=== PATIENT | male | born 1940 | race Caucasian/White ===

== ENCOUNTER 2016-11-12 14:35 | Inpatient (IN) | payer OTHER ==
[~2016-11-12] VITALS: Ht 175.3 cm; Wt 73.1 kg
[~2016-11-12 14:35] MED LIST: ASPI81TA28 PO; ATOR-24 PO; FLV1 PO; MRLP17X PO; MULT-589 PO; OXYB5TAB21 PO; SALI0.6510; THM100 PO
[2016-11-12] MEDS ORDERED: KPP/1000 PO (14:53)
[2016-11-12] MEDS ORDERED: DEXA1TAB16 PO (14:53)
[2016-11-12] MEDS ORDERED: LSN5 PO (14:53)
[2016-11-12] MEDS ORDERED: CITA20TA9 PO (14:53)
[2016-11-12] MEDS ORDERED: SODIUM CHLORIDE 0.9% 1000ML 250 ML IV STA (15:13)
[2016-11-12] MEDS ORDERED: SODIUM CHLORIDE 0.9% 1000ML 1,000 ML IV STA (15:13)
[2016-11-12 15:54] LABS: HEMATOCRIT 42.1 % (42-52); MEAN CORPUSCULAR HEMOGLOBIN 34.7 pg (25-34); MEAN CORPUSCULAR HGB CONC 34.7 g/dl (32-36); MEAN PLATELET VOLUME 9.2 fL (7.4-10.4); PLATELET COUNT 144 K/uL (130-400); RED BLOOD COUNT 4.21 M/uL (4.7-6.1); WHITE BLOOD COUNT 9.58 K/uL (4.8-10.8)
[2016-11-12 16:07] LABS: PARTIAL THROMBOPLASTIN RATIO 0.9; PROTHROMBIN TIME (PATIENT) 10.7 SECONDS (9.0-12.0)
[2016-11-12 16:13] LABS: BUN/CREATININE RATIO 27.1 (10-20); CREATININE 0.99 mg/dl (0.60-1.40)
--- NOTE | 2016-11-12 16:13 | DIAGNOSTIC IMAGING REPORT ---
CT SCAN OF THE BRAIN WITHOUT IV CONTRAST CLINICAL HISTORY: Increasing weakness. Change in mental status. History of brain tumor. COMPARISON STUDY: CT of the brain dated 08/14/2015. MRI of the brain dated 08/13/2015. TECHNIQUE: Unenhanced axial CT scan of the brain is performed from the vertex to the skull base. CT DOSE: 537.48 mGy.cm FINDINGS: Brain parenchyma: Left frontal encephalomalacia is consistent with previous tumor resection. Postoperative change is again noted deep to the craniotomy site. There is diffuse edema throughout the white matter, likely related to radiation therapy. There is age-related involutional volume loss and microangiopathic change. There is no hemorrhage, mass effect, or evidence of acute territorial ischemia by CT criteria. Lock-white matter is preserved. No extra-axial fluid collection is seen. Ventricles, sulci, cisterns: Prominent secondary to involutional change. Intracranial vasculature: There is atherosclerotic calcification of the cavernous carotid and vertebral arteries. Calvarium: There are changes from previous left sided craniotomy. No destructive calvarial lesion is seen. Sinuses and mastoids: The visualized paranasal sinuses are clear. The mastoid air cells are well pneumatized. Orbits: The bony orbits are grossly intact. IMPRESSION: 1. There is no hemorrhage, mass effect, or evidence of acute territorial ischemia by CT criteria. 2. Encephalomalacia and postoperative change is again seen in the left frontal lobe consistent with previous tumor resection. There has been no significant change from the 08/14/2015 examination. 3. Diffuse low attenuation throughout the white matter suggests a history of previous brain radiation. Clinical correlation will be required. Electronically signed by: Eloy Sanchez M.D. 11/12/2016 4:12 PM Dictated Date/Time: 11/12/2016 4:08 PM
[2016-11-12 16:22] LABS: COMPLETE YES; IG% 0.4 %; LYMPH ABS # 0.48 K/uL (1.2-3.4); MONO % 2.6 %
--- NOTE | 2016-11-12 16:28 | DIAGNOSTIC IMAGING REPORT ---
CHEST ONE VIEW PORTABLE HISTORY: Atypical CHEST PAIN COMPARISON: Chest 08/13/2015. FINDINGS: Patient is rotated on this study. There are low lung volumes. The heart is normal in size. Tortuous thoracic aorta persists. This is likely accentuated by the rotated study. No pleural effusions. No pneumothorax. There is mild perihilar interstitial thickening. No focal lung consolidations to suggest pneumonia. IMPRESSION: 1. Rotated study. 2. Mild perihilar interstitial thickening. This could be due to developing congestive change. Electronically signed by: Micah De Guzman M.D. 11/12/2016 4:27 PM Dictated Date/Time: 11/12/2016 4:25 PM
[2016-11-12] MEDS ORDERED: DEXAMETHASONE SOD INJ 10 MG/ML VIAL IV STA (17:49)
--- NOTE | 2016-11-12 18:13 | EMERGENCY ROOM VISIT NOTE ---
History Report prepared by Cherelle: Angelina Walsh Under the Supervision of: Dr. Juan Antonio Martin M.D. First contact with patient: 14:50 Chief Complaint: ILLNESS Stated Complaint: CONFUSION History of Present Illness The patient is a 76 year old male who presents to the Emergency Room with complaints of worsening confusion that started one week ago. The patient came to the ED via ambulance. The patient's states that the patient has a brain tumor, but it has been stable for the last 6 months based on MRIs. His most recent imaging was done less than one month ago. Per the patient's , the patient has been getting gradually worse over the past 6 months, but it he has been significantly more confused over the past week. The patient's states that he has been struggling to communicate more than usual recently. The patient has also been unable to ambulate secondary to weakness in his legs. The patient's thinks he is dehydrated, but he does not want anything to drink. The patient denies being in any pain, including headaches, chest pain, and abdominal pain. However, his states that he is experiencing shortness of breath and a productive cough. The patient had an appointment with his PCP today , but the patient's had a difficult time getting him into the car so she called the ambulance and brought him into the ED instead. The patient is on seizure medication and has not had any seizures recently. The patient has fallen 5 times in the last week. The patient's states that he is normally weak on his right side, but lately he has been significantly weaker. The patient refused to finish chemotherapy in the fall of 2015 because he did not like the side effects. The patient has been taking his medications regularly. The patient is on a daily low dose of steroids. The patient's adds that he was diagnosed with COPD one month ago and given an inhaler, but he doesn't use it because he experienced palpitations. Source of History: patient, spouse/significant other () Onset: one week ago Position: head Quality: other (confusion) Timing: worsening Associated Symptoms: + SOB, + cough (productive), No abdominal pain, No chest pain, No headache Note: struggling to communicate, worsening lower extremity weakness Review of Systems See HPI for pertinent positives & negatives. A total of 10 systems reviewed and were otherwise negative. Past Medical & Surgical Medical Problems: (1) Ambulatory dysfunction (2) Brain tumor (3) CAD (coronary artery disease) (4) COPD (chronic obstructive pulmonary disease) (5) Depression (6) HLD (hyperlipidemia) (7) HTN (hypertension) (8) Hyperlipidemia (9) Oligodendroglioma of brain (10) Seizure Surgical Problems: (1) H/O brain surgery (2) H/O hernia repair (3) History of tonsillectomy Old medical records were reviewed. Nurse's notes were reviewed and I agree with. Family History Heart disease Social History Smoking Status: Never Smoker Alcohol Use: occasionally Marital Status: Housing Status: lives with significant other Occupation Status: retired Current/Historical Medications Scheduled Aspirin (Aspirin Ec), 81 MG PO DAILY Atorvastatin (Lipitor), 40 MG PO DAILY Citalopram Hydrobromide (Celexa), 20 MG PO DAILY Dexamethasone (Dexamethasone), 2 MG PO UD Folic Acid (Folic Acid), 1 MG PO QAM Levetiracetam (Keppra), 1,000 MG PO BID Lisinopril (Lisinopril), 5 MG PO DAILY Multivitamins (Daily Wes), 1 TAB PO QAM Oxybutynin Chloride (Ditropan Xl), 5 MG PO DAILY Thiamine HCl (Vitamin B-1), 100 MG PO QAM Scheduled PRN Polyethylene (Miralax), 17 GM PO DAILY PRN for constipation Saline ([place] Nasal [place]), 1 SPRAYS NA PRN PRN for NASAL DRYNESS Allergies Coded Allergies: No Known Allergies (Unverified , 05/25/14) Physical Exam Vital Signs Date Time Temp Pulse Resp B/P Pulse Ox O2 Delivery O2 Flow Rate FiO2 11/12/16 19:51 56 18 162/93 95 Room Air 11/12/16 17:26 63 18 177/93 95 Room Air 11/12/16 14:45 36.9 103 18 145/90 90 Room Air Physical Exam General: Well developed well nourished non-ill older male in no acute distress, breathing comfortably on room air. Normal speech HEENT: Normal cephalic atraumatic. Pupils are equal round and reactive to light. Sclerae anicteric. Extraocular movements are intact. Oropharynx is pink with moist mucous membranes. No swelling of the mouth lips or tongue. Neck: Supple with a midline trachea. No meningeal signs or stiffness, no JVD or bruits. No Stridor. Chest: Clear to auscultation bilaterally. No wheezes or rhonchi. No increased work of breathing. Heart: regular rate and rhythm. Abdomen: Soft nontender, nondistended without rebound guarding or rigidity. Extremities: No cyanosis clubbing or edema. No calf tenderness or assymetry Spine/Back. Non tender to palpation. No CVA tenderness Skin: Good turgor without rashes. Neurologic exam: Cranial nerves two through 12 are intact. Motor and sensation are intact and symmetrical throughout. Mild aphasia. Answers most questions appropriately but others vaguely. Alert to person and place but not date. Medical Decision & Procedures ER Provider Diagnostic Interpretation: X ray results as stated below per my interpretation and radiologist interpretation. Other radiology results as stated below per my review and radiologist interpretation: CHEST ONE VIEW PORTABLE IMPRESSION: 1. Rotated study. 2. Mild perihilar interstitial thickening. This could be due to developing congestive change. Electronically signed by: Micah De Guzman M.D. 11/12/2016 4:27 PM Dictated Date/Time: 11/12/2016 4:[address] SCAN OF THE BRAIN WITHOUT IV CONTRAST IMPRESSION: 1. There is no hemorrhage, mass effect, or evidence of acute territorial ischemia by CT criteria. 2. Encephalomalacia and postoperative change is again seen in the left frontal lobe consistent with previous tumor resection. There has been no significant change from the 08/14/2015 examination. 3. Diffuse low attenuation throughout the white matter suggests a history of previous brain radiation. Clinical correlation will be required. Electronically signed by: Eloy Sanchez M.D. 11/12/2016 4:12 PM Dictated Date/Time: 11/12/2016 4:08 PM Laboratory Results 11/12/16 15:30 Red Blood Count 4.21, Mean Corpuscular Volume 100.0, Mean Corpuscular Hemoglobin 34.7, Mean Corpuscular Hemoglobin Concent 34.7, Mean Platelet Volume 9.2, Neutrophils (%) (Auto) 92.0, Lymphocytes (%) (Auto) 5.0, Monocytes (%) ( Auto) 2.6, Eosinophils (%) (Auto) 0.0, Basophils (%) (Auto) 0.0, Neutrophils # ( Auto) 8.81, Lymphocytes # (Auto) 0.48, Monocytes # (Auto) 0.25, Eosinophils # ( Auto) 0.00, Basophils # (Auto) 0.00 11/12/16 15:30 Test 11/12/16 15:30 11/12/16 18:27 11/12/16 18:28 11/12/16 18:56 White Blood Count 9.58 K/uL (4.8-10.8) Red Blood Count 4.21 M/uL (4.7-6.1) Hemoglobin 14.6 g/dL (14.0-18.0) Hematocrit 42.1 % (42-52) Mean Corpuscular Volume 100.0 fL (80-100) Mean Corpuscular Hemoglobin 34.7 pg (25-34) Mean Corpuscular Hemoglobin Concent 34.7 g/dl (32-36) Platelet Count 144 K/uL (130-400) Mean Platelet Volume 9.2 fL (7.4-10.4) Neutrophils (%) (Auto) 92.0 % Lymphocytes (%) (Auto) 5.0 % Monocytes (%) (Auto) 2.6 % Eosinophils (%) (Auto) 0.0 % Basophils (%) (Auto) 0.0 % Neutrophils # (Auto) 8.81 K/uL (1.4-6.5) Lymphocytes # (Auto) 0.48 K/uL (1.2-3.4) Monocytes # (Auto) 0.25 K/uL (0.11-0.59) Eosinophils # (Auto) 0.00 K/uL (0-0.5) Basophils # (Auto) 0.00 K/uL (0-0.2) RDW Standard Deviation 49.8 fL (36.4-46.3) RDW Coefficient of Variation 13.7 % (11.5-14.5) Immature Granulocyte % (Auto) 0.4 % Immature Granulocyte # (Auto) 0.04 K/uL (0.00-0.02) Red Blood Cell Morphology Unremarkable Prothrombin Time 10.7 SECONDS (9.0-12.0) Prothromb Time International Ratio 1.0 (0.9-1.1) Activated Partial Thromboplast Time 24.6 SECONDS (21.0-31.0) Partial Thromboplastin Ratio 0.9 Anion Gap 7.0 mmol/L (3-11) Est Creatinine Clear Calc Drug Dose 64.5 ml/min Estimated GFR () 86.0 Estimated GFR (Non- 74.2 BUN/Creatinine Ratio 27.1 (10-20) Calcium Level 9.0 mg/dl (8.5-10.1) Magnesium Level 2.2 mg/dl (1.8-2.4) Total Bilirubin 0.5 mg/dl (0.2-1) Direct Bilirubin 0.2 mg/dl (0-0.2) Aspartate Amino Transf (AST/SGOT) 10 U/L (15-37) Alanine Aminotransferase (ALT/SGPT) 34 U/L (12-78) Alkaline Phosphatase 93 U/L (45-117) Total Creatine Kinase 45 U/L (39-308) Creatine Kinase MB 1.5 ng/ml (0.5-3.6) Troponin I < 0.015 ng/ml (0-0.045) Total Protein 6.3 gm/dl (6.4-8.2) Albumin 3.0 gm/dl (3.4-5.0) Lipase 202 U/L (73-393) Creatine Kinase MB Ratio (0-3.0) Laboratory studies as stated above per my review. Medications Administered Medications (Trade) Dose Ordered Sig/Adolfo Route Start Time Stop Time Status Last Admin Dose Admin Sodium Chloride 250 ml @ 999 mls/hr Q16M STAT IV 11/12/16 15:13 11/12/16 15:28 DC 11/12/16 16:04 999 MLS/HR Sodium Chloride (Nss 1000ml) 1,000 ml @ 100 mls/hr Q10H STAT IV 11/12/16 15:13 11/13/16 01:12 11/12/16 16:04 100 MLS/HR Dexamethasone Sodium Phosphate (Decadron Inj) 10 mg NOW STAT IV 11/12/16 17:49 11/12/16 17:50 DC 11/12/16 18:02 10 MG ECG Indication: altered mental status Rate (beats per minute): 68 Rhythm: normal sinus Findings: nonspecific-ST abn, other (poor baseline) Comparison ECG Date: 08/13/2015 Change: no significant change ED Course 1454: Past medical records reviewed. The patient was evaluated in room A10, and a complete history and physical examination were performed. 1513: Ordered Sodium Chloride 1000 ml @ 100 mls/hr IV, Sodium Chloride 250 ml @ 999 mls/hr IV 1744: Upon reevaluation, the patient appears to be more comfortable. I discussed the results and treatment plan with the patient and his . They verbalized agreement of the treatment plan. The patient will be evaluated for further management. 1748: Ordered Decadron Inj 10 mg IV 175: I discussed the patient's case with Anne Ackerman. The patient will be evaluated for further management. Medical Decision Differentials include, but are not limited to; brain tumor, seizure, dehydration , infection, arrhythmia, electrolyte or metabolic abnormality. This patient comes in as described above. He has ahistory of a brain tumor which was treated with surgery and radiation and chemotherapy comes in after having increasing weakness and confusion. He's had a subacute decline over the last week or so. He has had no fever. He has had no fall or trauma. His who takes care of him says that she can't care for him at this point. He's had no urinary symptoms. He denies any physical complaints. IV access established and he was hydrated with an IV normal saline bolus and hourly rate of IV normal salin.e EKG was obtained as well as chest x-ray, head CT, and urinalysis. CAT scan of his head shows no acute process. He does have some possible edema which may be related to radiation. I did give him Decadron 10 mg IV to rule out that this was causing some of his symptoms. He has nothing to suggest infection. His sodium is high as was his BUN he may be dehydrated. I do think he needs to be admitted for further treatment and evaluation. I did consulted as hospitalist. They problems on the ER will admit him for these measures. Consults Time Called: 1748 Consulting Physician: Anne Ackerman Returned Call: [phone] I discussed the patient's case with Anne Ackerman. The patient will be evaluated for further management. Impression Primary Impression: Weakness Additional Impressions: Altered mental status Brain tumor Hypernatremia Dehydration Scribe Attestation The scribe's documentation has been prepared under my direction and personally reviewed by me in its entirety. I confirm that the note above accurately reflects all work, treatment, procedures, and medical decision making performed by me. Departure Information Dispostion Being Evaluated By Hospitalist Referrals Sherman Celaya M.D. (PCP) Patient Instructions My [facility] Problem Qualifiers Additional Impressions: Altered mental status Altered mental status type: unspecified Qualified Codes: R41.82 - Altered mental status, unspecified
[2016-11-12 18:50] LABS: CKMB/CK RATIO 3.3 (0-3.0); MAGNESIUM 2.2 mg/dl (1.8-2.4)
[2016-11-12] MEDS ORDERED: ONDANSETRON INJ 2 MG/ML 2 ML VIAL IV PRN (19:00)
[2016-11-12] MEDS ORDERED: ACETAMINOPHEN 325 MG TAB PO PRN (19:00)
[2016-11-12] MEDS ORDERED: ENOXAPARIN 40 MG/0.4 ML SYR SC SCH (19:00)
[2016-11-12] MEDS ORDERED: SODIUM CHLORIDE 0.65% NA SOLN 45 ML (OCEAN) PRN (19:15)
[2016-11-12] MEDS ORDERED: POLYETHYLENE (MIRALAX) 17 GM PACK PO PRN (19:15)
--- NOTE | 2016-11-12 19:40 | DIAGNOSTIC IMAGING REPORT ---
ULTRASOUND BILATERAL LOWER EXTREMITY VENOUS CLINICAL HISTORY: Calf pain. COMPARISON STUDY: No priors. TECHNIQUE: Real-time, grayscale, and color Doppler sonography of the deep veins of the right and left lower extremity was performed from the inguinal crease to the calf. Compression and augmentation were utilized. FINDINGS: Right lower extremity: There is no sonographic evidence of deep venous thrombosis identified in the right lower extremity. The common femoral, superficial femoral, and popliteal veins are patent and normally compressible. The greater saphenous vein and the profunda femoris vein at the junction with the common femoral vein are clear. The visualized calf veins are patent. Left lower extremity: There is deep venous thrombosis identified within 1 of the left peroneal veins. The remaining calf vessels are patent. There is no sonographic evidence of above knee deep venous thrombosis identified in the left lower extremity. The common femoral, superficial femoral, and popliteal veins are patent and normally compressible. The greater saphenous vein and the profunda femoris vein at the junction with the common femoral vein are clear. IMPRESSION: 1. Deep venous thrombosis is identified in the left calf within one of the peroneal veins. 2. There is no above knee deep venous thrombosis identified in the left lower extremity. 3. There is no sonographic evidence of deep venous thrombosis identified in the right lower extremity. Electronically signed by: Eloy Sanchez M.D. 11/12/2016 7:39 PM Dictated Date/Time: 11/12/2016 7:37 PM
--- NOTE | 2016-11-12 19:52 | History and Physical ---
History & Physical Date & Time of Service: Nov 12, 2016 at 19:21 Chief Complaint: Confusion Primary Care Physician: Dian Gay M.D. History of Present Illness Source: patient, family, clinic records, hospital records Patient seen and examined. 76 year old male with PMHx of Malignant Glioma s/p resection, chemo, radiation, CAD, HTN, HLD, seizures, COPD and other problems listed below present to the ED with increased confusion x 1 week. History is taken primarily from patient's who states that patient has been confused for several months. Over the last week he seems to have become more confused and "can't find the words he needs to say." He has also become increasingly weak. Patient usually uses a walker but over the past week he has had increased difficulty ambulating and can not not ambulate. He has a chronic right hemiplegia. He has had at least 5 falls in the last week. His has been unable to help him up and he has had to sleep on the floor until others could help him. He has had increased urinary incontinence and very poor po intake. Patient chose to stop chemotherapy in the fall. He has refused MRIs until very recently. He was seen by his PCP last month who started him on Celexa. He has not had any other medication changes. Patient and his denies fevers, chills , cough, chest pain, SOB, nausea, vomiting, diarrhea, dysuria, LOC and head trauma. Patient had an MRI of brain at the end of 10/16 which was unchanged from previous. Patient occasionally becomes tearful during exam especially when he doesn't know the answer to things. In the ED sodium is 149, CT head shows possible cerebral edema secondary to radiation. He received IVFs and Decadron he is resting comfortably and will be admitted for further workup and treatment. Past Medical/Surgical History Medical Problems: (1) Brain tumor Status: Chronic (2) CAD (coronary artery disease) Status: Chronic (3) COPD (chronic obstructive pulmonary disease) Status: Chronic (4) Depression Status: Chronic (5) HLD (hyperlipidemia) Status: Chronic (6) HTN (hypertension) Status: Chronic (7) Hyperlipidemia Status: Chronic (8) Oligodendroglioma of brain Status: Chronic (9) Seizure Status: Chronic Surgical Problems: (1) H/O brain surgery Status: Resolved (2) H/O hernia repair Status: Resolved (3) History of tonsillectomy Status: Resolved Family History Heart disease Social History Smoking Status: Never Smoker Alcohol Use: none Marital Status: Housing status: lives with family Occupational Status: retired Multi-Drug Resistant Organisms History of MDRO: Yes Type of MDRO: MRSA Allergies Coded Allergies: No Known Allergies (Unverified , 05/25/14) Home Medications Scheduled Aspirin (Aspirin Ec), 81 MG PO DAILY Atorvastatin (Lipitor), 40 MG PO DAILY Citalopram Hydrobromide (Celexa), 20 MG PO DAILY Dexamethasone (Dexamethasone), 2 MG PO UD Folic Acid (Folic Acid), 1 MG PO QAM Levetiracetam (Keppra), 1,000 MG PO BID Lisinopril (Lisinopril), 5 MG PO DAILY Multivitamins (Daily Wes), 1 TAB PO QAM Oxybutynin Chloride (Ditropan Xl), 5 MG PO DAILY Thiamine HCl (Vitamin B-1), 100 MG PO QAM Scheduled PRN Polyethylene (Miralax), 17 GM PO DAILY PRN for constipation Saline ([place] Nasal [place]), 1 SPRAYS NA PRN PRN for NASAL DRYNESS Review of Systems See above for pertinent positives & negatives. A total of 10 systems reviewed and were otherwise negative. Physical Exam Vital Signs Date Time Temp Pulse Resp B/P Pulse Ox O2 Delivery O2 Flow Rate FiO2 11/12/16 17:26 63 18 177/93 95 Room Air 11/12/16 14:45 36.9 103 18 145/90 90 Room Air General Appearance: + pertinent finding (WD/WN 76 year old male lying in bed in NAD with at bedside ) Head: normocephalic, atraumatic Eyes: PERRL, EOMI, sclerae normal ENT: hearing grossly normal, pharynx normal Neck: supple, no JVD Respiratory/Chest: chest non-tender, lungs clear, normal breath sounds, no respiratory distress, no accessory muscle use Cardiovascular: regular rate, rhythm, no edema, no gallop, no JVD, no murmur, normal peripheral pulses Abdomen/GI: normal bowel sounds, non tender, soft Back: normal inspection, no muscle spasm Extremities/Musculoskelatal: normal capillary refill, no pedal edema, + calf tenderness (right calf ) Neurologic/Psych: + pertinent finding (Alert, oriented to person and place not time, occasionally tearful throughout exam, chronic RUE weakness, otherwise no focal deficits ) Skin: normal color, warm/dry, no rash Lymphatic: no adenopathy Diagnostics Laboratory Results Results Past 24 Hours Test 11/12/16 15:30 11/12/16 18:27 11/12/16 18:28 11/12/16 18:56 Range/Units White Blood Count 9.58 4.8-10.8 K/uL Red Blood Count 4.21 4.7-6.1 M/uL Hemoglobin 14.6 14.0-18.0 g/dL Hematocrit 42.1 42-52 % Mean Corpuscular Volume 100.0 80-100 fL Mean Corpuscular Hemoglobin 34.7 25-34 pg Mean Corpuscular Hemoglobin Concent 34.7 32-36 g/dl Platelet Count 144 130-400 K/uL Mean Platelet Volume 9.2 7.4-10.4 fL Neutrophils (%) (Auto) 92.0 % Lymphocytes (%) (Auto) 5.0 % Monocytes (%) (Auto) 2.6 % Eosinophils (%) (Auto) 0.0 % Basophils (%) (Auto) 0.0 % Neutrophils # (Auto) 8.81 1.4-6.5 K/uL Lymphocytes # (Auto) 0.48 1.2-3.4 K/uL Monocytes # (Auto) 0.25 0.11-0.59 K/uL Eosinophils # (Auto) 0.00 0-0.5 K/uL Basophils # (Auto) 0.00 0-0.2 K/uL RDW Standard Deviation 49.8 36.4-46.3 fL RDW Coefficient of Variation 13.7 11.5-14.5 % Immature Granulocyte % (Auto) 0.4 % Immature Granulocyte # (Auto) 0.04 0.00-0.02 K/uL Red Blood Cell Morphology Unremarkable Prothrombin Time 10.7 9.0-12.0 SECONDS Prothromb Time International Ratio 1.0 0.9-1.1 Activated Partial Thromboplast Time 24.6 21.0-31.0 SECONDS Partial Thromboplastin Ratio 0.9 Sodium Level 149 136-145 mmol/L Potassium Level 4.0 3.5-5.1 mmol/L Chloride Level 111 98-107 mmol/L Carbon Dioxide Level 31 21-32 mmol/L Anion Gap 7.0 3-11 mmol/L Blood Urea Nitrogen 27 7-18 mg/dl Creatinine 0.99 0.60-1.40 mg/dl Est Creatinine Clear Calc Drug Dose 64.5 ml/min Estimated GFR () 86.0 Estimated GFR (Non- 74.2 BUN/Creatinine Ratio 27.1 10-20 Random Glucose 163 70-99 mg/dl Calcium Level 9.0 8.5-10.1 mg/dl Magnesium Level 2.2 1.8-2.4 mg/dl Total Bilirubin 0.5 0.2-1 mg/dl Direct Bilirubin 0.2 0-0.2 mg/dl Aspartate Amino Transf (AST/SGOT) 10 15-37 U/L Alanine Aminotransferase (ALT/SGPT) 34 12-78 U/L Alkaline Phosphatase 93 45-117 U/L Total Creatine Kinase 45 39-308 U/L Creatine Kinase MB 1.5 0.5-3.6 ng/ml Creatine Kinase MB Ratio 3.3 0-3.0 Total Protein 6.3 6.4-8.2 gm/dl Albumin 3.0 3.4-5.0 gm/dl Lipase 202 73-393 U/L Microbiology Results 11/12/16 Blood Culture, Received Pending 11/12/16 Blood Culture, Received Pending Diagnostic Radiology CXR Per radiologist read: IMPRESSION: 1. Rotated study. 2. Mild perihilar interstitial thickening. This could be due to developing congestive change. CT HEAD Per radiologist read: IMPRESSION: 1. There is no hemorrhage, mass effect, or evidence of acute territorial ischemia by CT criteria. 2. Encephalomalacia and postoperative change is again seen in the left frontal lobe consistent with previous tumor resection. There has been no significant change from the 08/14/2015 examination. 3. Diffuse low attenuation throughout the white matter suggests a history of previous brain radiation. Clinical correlation will be required. EKG NSR 68 BPM, QTc 446 Impression Assessment and Plan 76 year old male with PMHx of glioma, s/p chemo, radiation, resection, presents with worsening confusion and ambulatory dysfunction ALTERED MENTAL STATUS -Admit to tele -? cause differential diagnosis to include worsening glioma, ACS, B12 deficiency , infectious causes, dehydration and other etiologies -CT with per radiologist read Diffuse low attenuation throughout the white matter suggests a history of previous brain radiation. Clinical correlation will be required. - Check UA, PCR Flu -Check B12 and folate -check orthostatic VS -Serial Don, EKGs -Continue Decadron -Gentle IVF hydration -Consult neurology for further input -CBC, PRP, Mg daily AMBULATORY DYSFUNCTION -? cause has known chronic RUE weakness -? infection- check UA, blood cultures -? secondary to dehydration - gentle IVF hydration -? secondary to worsening glioma - heme/onc consult placed -PT/OT eval -fall precautions -social science instructor consult for discharge planning HYPERNATREMIA -149, likely secondary to poor po intake -give 1/2 NS at 100ml/hr x 1L -repeat PRP tonight with Don MALIGNANT GLIOMA OF BRAIN -S/p resection, chemo, radiation -possible edema secondary to radiation -received 10mg IV Decadron in ED -continue outpatient Decadron dose -Heme/onc consult - follows with Dr. Lock -Palliative care consult LEFT PERONEAL DVT -Lovenox 1mg/kg -Likely start coumarin tomorrow -R/O PE check CTA H/O SEIZURES -continue Keppra -check Keppra level CAD r/o ACS -No complaints of chest pain, but confused -EKG nonischemic -check Cardiac Enzymes and serial them q6h -Give Aspirin now and daily -continue Statin for plaque stabilization -monitor in tele -check Echo DEPRESSION -continue Celexa HLD -continue Statin -check lipid panel HTN -Slightly elevated -continue lisinopril DVT PROPHYLAXIS: Sq Lovenox CODE STATUS: LEVEL 5 DNR per my discussion with the patient and his DISPO:In my clinical judgment this beneficiary meets acute admission criteria, established by [facility], that includes being hospitalized through two midnights. discharge planning eval Patient seen in collaboration with Dr. Dejesus Level of Care Telemetry Resuscitation Status DO NOT RESUSCITATE VTE Prophylaxis VTE Risk Assessment Done? Y/N: Yes Risk Level: Moderate Given or contraindicated: Enoxaparin (Lovenox)SQ Social Service Consult Cancer Patient Under [place] Note ADDENDUM: I have seen and examined this patient and agree with the assessment and plan as stated above. Mr. Alegre has been more confused recently according to his , with weakness to the point of no ambulation. She also reports that he has had a productive cough and shortness of breath for one month with some conversational dyspnea which is new for him just this week. He was given an inhaler by PCP several weeks ago but refuses to use it because it gave him palpitations. There is increased swelling of his feet and u/s doppler reveals a DVT on the LLE just tonight (negative one month ago per ). Last brain MRI was reportedly one month ago per and was unchanged. They were supposed to see Dr. Lock this Saturday (4 days from now) to discuss the current treatment plan. Mr. Alegre has been very back and forth on how he wants to proceed with treatment and has been demonstrating erratic behavior including tearfulness and anger with aggression towards . This report is per and was seen by my PA (above) and myself today on exam. We have consulted palliative care for this reason as he has been refusing all treatments to date. Oncology to also see for expedited care plan. Will scan chest tonight for PE in light of shortness of breath and Lovenox has been started. Exam was unremarkable with 5/5 strength throughout. The patient was denying everything and was tight-lipped and appeared upset to be in the hospital but was amenable to being admitted. Cont with treatment plan as above. I contacted the ( POA) by phone to apprise her of the DVT. Uma Dejesus DO (Hospitalist)
[2016-11-12 20:00] VITALS: BP 162/93; TEMP 36.9; O2SAT 95; Ht 175.3 cm; Wt 73.1 kg
[2016-11-12] MEDS ORDERED: ENOXAPARIN 1 MG/KG SQ SCH (20:00)
[2016-11-12] MEDS ORDERED: OPTIRAY 320 IV PRN (20:00)
[2016-11-12] MEDS ORDERED: ASPIRIN 81 MG CHEW PO ONE (20:52)
[2016-11-12] MEDS: SODIUM CHLORIDE 0.45% 1000ML 1,000 ML IV SCH (21:36)
[2016-11-12] MEDS: LEVETIRACETAM 500 MG TAB PO SCH (21:36)
[2016-11-12] MEDS: ENOXAPARIN 80 MG/0.8 ML SYR SQ SCH (21:42)
[2016-11-12 22:46] LABS: BLOOD UREA NITROGEN 24 mg/dl (7-18); BUN/CREATININE RATIO 29.9 (10-20); CALCIUM 8.6 mg/dl (8.5-10.1); CARBON DIOXIDE 28 mmol/L (21-32); CHLORIDE 112 mmol/L (98-107); CKMB/CK RATIO 3.8 (0-3.0); CREATININE 0.79 mg/dl (0.60-1.40); GLUCOSE 141 mg/dl (70-99); POTASSIUM 4.1 mmol/L (3.5-5.1); SODIUM 149 mmol/L (136-145)
[2016-11-12 23:05] VITALS: BP 143/84; PULSE 58; TEMP 36.3; O2SAT 94
[2016-11-13] VITALS (8 sets, daily range): BP systolic 127–170; BP diastolic 70–87; PULSE 60–70; TEMP 36.4–36.7; O2SAT 91–95
[2016-11-13 00:14] LABS: INFLUENZA A PCR Neg for Influ A (NEG); INFLUENZA B PCR Neg for Influ B (NEG)
[2016-11-13 03:34] LABS: HEMATOCRIT 37.8 % (42-52); MEAN CELL VOLUME 100.5 fL (80-100); MEAN CORPUSCULAR HEMOGLOBIN 34.3 pg (25-34); MEAN CORPUSCULAR HGB CONC 34.1 g/dl (32-36); MEAN PLATELET VOLUME 9.4 fL (7.4-10.4); PLATELET COUNT 128 K/uL (130-400); RED BLOOD COUNT 3.76 M/uL (4.7-6.1)
[2016-11-13 03:44] LABS: INR 1.1 (0.9-1.1); PROTHROMBIN TIME (PATIENT) 11.4 SECONDS (9.0-12.0)
[2016-11-13 03:56] LABS: BLOOD UREA NITROGEN 25 mg/dl (7-18); BUN/CREATININE RATIO 36.3 (10-20); CALCIUM 8.3 mg/dl (8.5-10.1); CARBON DIOXIDE 29 mmol/L (21-32); CHLORIDE 112 mmol/L (98-107); CREATININE 0.69 mg/dl (0.60-1.40); GLUCOSE 134 mg/dl (70-99); MAGNESIUM 2.1 mg/dl (1.8-2.4); SODIUM 147 mmol/L (136-145)
[2016-11-13 04:02] LABS: CHOLESTEROL 123 mg/dl (0-200); CHOLESTEROL/HDL RATIO 1.9; CKMB/CK RATIO 5.6 (0-3.0); HDL CHOLESTEROL 65 mg/dl; LDL CHOLESTEROL CALCULATED 47 mg/dl; TRIGLYCERIDES 53 mg/dl (0-150); VERY LOW DENSITY LIPOPROT CALC 11 mg/dl
[2016-11-13 05:21] LABS: URINE APPEARANCE CLEAR (CLEAR); URINE BILIRUBIN NEG (NEG); URINE COLOR YELLOW; URINE NITRITE NEG (NEG); URINE PH 5.5 (4.5-7.5); URINE SPECIFIC GRAVITY 1.023 (1.000-1.030); UROBILINOGEN NEG (NEG); ZZUR CULT IF INDIC CLEAN CATCH NO
[2016-11-13 05:26] LABS: MANUAL MICROSCOPIC REQUIRED? NO; REVIEW REQ? NO
[2016-11-13] MEDS: SODIUM CHLORIDE 0.45% 1000ML 1,000 ML IV SCH ×2 (06:09→17:54)
[2016-11-13] MEDS: CITALOPRAM 20 MG TAB PO SCH (09:47)
[2016-11-13] MEDS: ASPIRIN 81 MG ECTAB PO SCH (09:47)
[2016-11-13] MEDS: LEVETIRACETAM 500 MG TAB PO SCH ×2 (09:47→20:03)
[2016-11-13] MEDS: ATORVASTATIN 20 MG TAB PO SCH (09:48)
[2016-11-13] MEDS: THIAMINE HCL 100 MG TAB PO SCH (09:48)
[2016-11-13] MEDS: LISINOPRIL 5 MG TAB PO SCH (09:48)
[2016-11-13] MEDS: DEXAMETHASONE 4 MG TAB PO SCH ×2 (09:49→15:02)
[2016-11-13] MEDS: OXYBUTYNIN CHLORIDE 5 MG TABCR PO SCH (09:49)
[2016-11-13] MEDS: MULTIVITAMIN TAB PO SCH (09:49)
--- NOTE | 2016-11-13 09:59 | Progress Note ---
Medicine Progress Note Date & Time of Visit: Nov 13, 2016 at 09:48. Subjective seen sitting up resting in bed alert, oriented to person and place at bedside states his mental status seems somewhat improved today- less confused denies headache, dizziness, new neuro symptoms denies chest pain, dyspnea, palpitation denies leg pain no other symptoms appetite good Objective Last 8 Hrs Date Time Temp Pulse Resp B/P Pulse Ox O2 Delivery O2 Flow Rate FiO2 11/13/16 08:00 Room Air 11/13/16 07:59 36.6 70 18 161/87 91 Room Air 69 170/87 11/13/16 04:17 36.6 64 20 128/76 91 Room Air 11/13/16 04:09 95 Room Air Physical Exam: General- oriented x 2, not in distress, speaks in sentences with no effort Head- atraumatic Eyes- anicteric ENT- oropharynx clear Neck- supple, no JVD, no adenopathy Lungs- clear to auscultation b/l Heart- normal rate, regular rhythm; no murmurs Abdomen- normal bowel sounds, soft, nontender Extremities- no pretibial edema, no calf tenderness; peripheral pulses intact Neuro- alert, oriented x 2; no facial asymmetry, mild RUE weakness Skin- warm & dry Laboratory Results: Last 24 Hours Test 11/12/16 15:30 11/12/16 18:27 11/12/16 20:53 11/12/16 21:30 White Blood Count 9.58 K/uL Red Blood Count 4.21 M/uL Hemoglobin 14.6 g/dL Hematocrit 42.1 % Mean Corpuscular Volume 100.0 fL Mean Corpuscular Hemoglobin 34.7 pg Mean Corpuscular Hemoglobin Concent 34.7 g/dl Platelet Count 144 K/uL Mean Platelet Volume 9.2 fL Neutrophils (%) (Auto) 92.0 % Lymphocytes (%) (Auto) 5.0 % Monocytes (%) (Auto) 2.6 % Eosinophils (%) (Auto) 0.0 % Basophils (%) (Auto) 0.0 % Neutrophils # (Auto) 8.81 K/uL Lymphocytes # (Auto) 0.48 K/uL Monocytes # (Auto) 0.25 K/uL Eosinophils # (Auto) 0.00 K/uL Basophils # (Auto) 0.00 K/uL RDW Standard Deviation 49.8 fL RDW Coefficient of Variation 13.7 % Immature Granulocyte % (Auto) 0.4 % Immature Granulocyte # (Auto) 0.04 K/uL Red Blood Cell Morphology Unremarkable Prothrombin Time 10.7 SECONDS Prothromb Time International Ratio 1.0 Activated Partial Thromboplast Time 24.6 SECONDS Partial Thromboplastin Ratio 0.9 Sodium Level 149 mmol/L 149 mmol/L Potassium Level 4.0 mmol/L 4.1 mmol/L Chloride Level 111 mmol/L 112 mmol/L Carbon Dioxide Level 31 mmol/L 28 mmol/L Anion Gap 7.0 mmol/L 9.0 mmol/L Blood Urea Nitrogen 27 mg/dl 24 mg/dl Creatinine 0.99 mg/dl 0.79 mg/dl Est Creatinine Clear Calc Drug Dose 64.5 ml/min 80.8 ml/min Estimated GFR () 86.0 101.8 Estimated GFR (Non- 74.2 87.8 BUN/Creatinine Ratio 27.1 29.9 Random Glucose 163 mg/dl 141 mg/dl Calcium Level 9.0 mg/dl 8.6 mg/dl Magnesium Level 2.2 mg/dl Total Bilirubin 0.5 mg/dl Direct Bilirubin 0.2 mg/dl Aspartate Amino Transf (AST/SGOT) 10 U/L Alanine Aminotransferase (ALT/SGPT) 34 U/L Alkaline Phosphatase 93 U/L Total Creatine Kinase 45 U/L 50 U/L Creatine Kinase MB 1.5 ng/ml 1.9 ng/ml Creatine Kinase MB Ratio 3.3 3.8 Troponin I < 0.015 ng/ml < 0.015 ng/ml Total Protein 6.3 gm/dl Albumin 3.0 gm/dl Lipase 202 U/L Vitamin B12 Level 779 pg/mL Folate > 24.00 ng/mL Chemistry Specimen Hemolysis Test 11/12/16 22:00 11/13/16 03:22 11/13/16 04:55 Influenza Type A (RT-PCR) Neg for Influ A Influenza Type B (RT-PCR) Neg for Influ B White Blood Count 8.70 K/uL Red Blood Count 3.76 M/uL Hemoglobin 12.9 g/dL Hematocrit 37.8 % Mean Corpuscular Volume 100.5 fL Mean Corpuscular Hemoglobin 34.3 pg Mean Corpuscular Hemoglobin Concent 34.1 g/dl RDW Standard Deviation 48.9 fL RDW Coefficient of Variation 13.5 % Platelet Count 128 K/uL Mean Platelet Volume 9.4 fL Prothrombin Time 11.4 SECONDS Prothromb Time International Ratio 1.1 Activated Partial Thromboplast Time 26.7 SECONDS Partial Thromboplastin Ratio 1.0 Sodium Level 147 mmol/L Potassium Level 4.0 mmol/L Chloride Level 112 mmol/L Carbon Dioxide Level 29 mmol/L Anion Gap 6.0 mmol/L Blood Urea Nitrogen 25 mg/dl Creatinine 0.69 mg/dl Est Creatinine Clear Calc Drug Dose 92.5 ml/min Estimated GFR () 107.6 Estimated GFR (Non- 92.9 BUN/Creatinine Ratio 36.3 Random Glucose 134 mg/dl Calcium Level 8.3 mg/dl Magnesium Level 2.1 mg/dl Total Creatine Kinase 36 U/L Creatine Kinase MB 2.0 ng/ml Creatine Kinase MB Ratio 5.6 Troponin I < 0.015 ng/ml Triglycerides Level 53 mg/dl Cholesterol Level 123 mg/dl HDL Cholesterol 65 mg/dl LDL Cholesterol, Calculated 47 mg/dl VLDL Cholesterol, Calculated 11 mg/dl Cholesterol/HDL Ratio 1.9 Urine Color YELLOW Urine Appearance CLEAR Urine pH 5.5 Urine Specific [place] 1.023 Urine Protein NEG Urine Glucose (UA) NEG Urine Ketones NEG Urine Occult Blood NEG Urine Nitrite NEG Urine Bilirubin NEG Urine Urobilinogen NEG Urine Leukocyte Esterase NEG Urine WBC (Auto) 1-5 /hpf Urine RBC (Auto) 0-4 /hpf Urine Hyaline Casts (Auto) 1-5 /lpf Urine Epithelial Cells (Auto) 5-10 /lpf Urine Bacteria (Auto) NEG Date/Time Source Procedure Growth Status 11/12/16 16:22 Blood Blood Culture Pending Received 11/12/16 15:30 Blood Blood Culture Pending Received Assessment & Plan 76 year old male with PMHx of glioma, s/p chemo, radiation, resection ([id number] ) presents with worsening confusion and ambulatory dysfunction CONFUSION, Improving Possible Metabolic Encephalopathy from Hypernatremia History of Oligodendroglioma, s/p Resection, Radiation, Chemo -? cause differential diagnosis to include worsening glioma -CT with per radiologist read Diffuse low attenuation throughout the white matter suggests a history of previous brain radiation. Clinical correlation will be required. MRI Brain: 10/29/16: stable - No signs of Infection: Flu negative CXR clear UA no signs of UTI - Na improving from 149 to 147 continue 1/2 NSS monitor Na q6h - Neurology consulted Oncology consulted other work up: -B12 and folate : normal -check orthostatic VS -Serial Don: negative AMBULATORY DYSFUNCTION -? cause has known chronic RUE weakness -? secondary to dehydration - gentle IVF hydration -? secondary to worsening glioma - heme/onc consult placed -PT/OT eval -fall precautions -social media project manager consult for discharge planning HYPERNATREMIA -149, likely secondary to poor po intake -give 1/2 NS at 100ml/hr x 1L - Na improving to 147 monitor MALIGNANT GLIOMA OF BRAIN -S/p resection, chemo, radiation -possible edema secondary to radiation -received 10mg IV Decadron in ED -continue outpatient Decadron dose -Heme/onc consult - follows with Dr. Lock -Palliative care consult LEFT PERONEAL DVT -Lovenox 1mg/kg -R/O PE check CTA: pending -Hem/Onc consulted H/O SEIZURES -continue Keppra -check Keppra level CAD r/o ACS -No complaints of chest pain, but confused -EKG nonischemic - Cardiac Markers negative Echo:pending - on Aspirin, Statin DEPRESSION -continue Celexa HLD -continue Statin -check lipid panel HTN -Slightly elevated -continue lisinopril DVT PROPHYLAXIS: Sq Lovenox BID CODE STATUS: LEVEL 5 DNR DISPO pending lives at home with may need Rehab/SNF Current Inpatient Medications: Current Inpatient Medications Medications (Trade) Dose Ordered Sig/Adolfo Route Start Time Stop Time Status Last Admin Dose Admin Acetaminophen (Tylenol Tab) 650 mg Q4H PRN PO 11/12/16 19:00 12/12/16 18:59 Ondansetron HCl 4 mg 4 mg Q6H PRN IV 11/12/16 19:00 12/12/16 18:59 Sodium Chloride (1/2 Nss 1000ml) 1,000 ml @ 100 mls/hr Q10H IV 11/12/16 21:00 12/12/16 20:59 11/13/16 06:09 100 MLS/HR Aspirin (Ecotrin Tab) 81 mg DAILY PO 11/13/16 09:00 12/13/16 08:59 Atorvastatin Calcium (Lipitor Tab) 40 mg DAILY PO 11/13/16 09:00 12/13/16 08:59 Citalopram Hydrobromide (celeXA TAB) 20 mg DAILY PO 11/13/16 09:00 12/13/16 08:59 Dexamethasone (Decadron Tab) 2 mg BID@0900,1500 PO 11/13/16 09:00 12/13/16 08:59 Folic Acid (Folvite Tab) 1 mg QAM PO 11/13/16 09:00 12/13/16 08:59 Levetiracetam (Keppra Tab) 1,000 mg BID PO 11/12/16 21:00 12/12/16 20:59 11/12/16 21:36 1,000 MG Lisinopril (Zestril Tab) 5 mg DAILY PO 11/13/16 09:00 12/13/16 08:59 Multivitamins (Multivitamin Tab) 1 tab QAM PO 11/13/16 09:00 12/13/16 08:59 Oxybutynin Chloride (Ditropan-Xl Tab) 5 mg DAILY PO 11/13/16 09:00 12/13/16 08:59 Polyethylene (Miralax Powder Packet) 17 gm DAILY PRN PO 11/12/16 19:15 12/12/16 19:14 Sodium Chloride ([place] Nasal [place]) 1 sprays PRN PRN NA 11/12/16 19:15 12/12/16 19:14 Thiamine HCl (Vitamin B-1 Tab) 100 mg QAM PO 11/13/16 09:00 12/13/16 08:59 Ioversol (Optiray 320) 100 ml UD PRN IV 11/12/16 20:00 11/16/16 19:59 Enoxaparin Sodium (Lovenox Inj) 70 mg Q12 SQ 11/12/16 21:00 12/12/16 20:59
[2016-11-13] MEDS: ENOXAPARIN 80 MG/0.8 ML SYR SQ SCH ×2 (11:16→20:04)
--- NOTE | 2016-11-13 14:41 | Neurology Consultation ---
Neurology Consultation Date of Consultation: Nov 13, 2016. Attending Physician: Jonathan Valverde MD Primary Care Physician: Dian Gay M.D. Reason for Consultation: confusion/ brain tumor History of Present Illness Source: patient, spouse Seymour is a 76 year old male with PMH of Malignant Glioma s/p resection, chemo , radiation, CAD, HTN, HLD, seizures, COPD. His is in the room and he is lying flat in the bed with is eyes closed. His reports that over the past 2 months he has had a steady mental and physical decline. Over the past week it has been a steep decline with confusion and "can't find the words he needs to say." He uses a walker but over the past week he has had increased difficulty ambulating. he is right hemiplegia and had least 5 falls in the last week which she states is more of a slow collapse to the floor. She was unable to get him up so they slept on the floor all night. She states he is eating ok but very slowly but his fluid intake is very minimal. he stopped chemotherapy in the fall and was refusing to have MRIs until very recently. He was started about a month ago on Celexa by his PCP due to depression. He denies fevers, chills, cough, chest pain, SOB, nausea, vomiting, diarrhea, dysuria, LOC and head trauma. According to EPIC chart he had the following. 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 Past Medical/Surgical History Medical Problems: (1) Altered mental status Status: Acute (2) Brain tumor Status: Chronic (3) Dehydration Status: Acute (4) Hypernatremia Status: Acute (5) Weakness Status: Acute Social History Alcohol Use: none Marital Status: Housing Status: lives with significant other Occupation Status: retired Allergies Coded Allergies: No Known Allergies (Unverified , 05/25/14) Current Inpatient Medications Current Inpatient Medications Medications (Trade) Dose Ordered Sig/Adolfo Route Start Time Stop Time Status Last Admin Dose Admin Acetaminophen (Tylenol Tab) 650 mg Q4H PRN PO 11/12/16 19:00 12/12/16 18:59 Ondansetron HCl 4 mg 4 mg Q6H PRN IV 11/12/16 19:00 12/12/16 18:59 Sodium Chloride (1/2 Nss 1000ml) 1,000 ml @ 100 mls/hr Q10H IV 11/12/16 21:00 12/12/16 20:59 11/13/16 06:09 100 MLS/HR Aspirin (Ecotrin Tab) 81 mg DAILY PO 11/13/16 09:00 12/13/16 08:59 11/13/16 09:47 81 MG Atorvastatin Calcium (Lipitor Tab) 40 mg DAILY PO 11/13/16 09:00 12/13/16 08:59 11/13/16 09:48 40 MG Citalopram Hydrobromide (celeXA TAB) 20 mg DAILY PO 11/13/16 09:00 12/13/16 08:59 11/13/16 09:47 20 MG Dexamethasone (Decadron Tab) 2 mg BID@0900,1500 PO 11/13/16 09:00 12/13/16 08:59 11/13/16 09:49 2 MG Folic Acid (Folvite Tab) 1 mg QAM PO 11/13/16 09:00 12/13/16 08:59 11/13/16 09:48 1 MG Levetiracetam (Keppra Tab) 1,000 mg BID PO 11/12/16 21:00 12/12/16 20:59 11/13/16 09:47 1,000 MG Lisinopril (Zestril Tab) 5 mg DAILY PO 11/13/16 09:00 12/13/16 08:59 11/13/16 09:48 5 MG Multivitamins (Multivitamin Tab) 1 tab QAM PO 11/13/16 09:00 12/13/16 08:59 11/13/16 09:49 1 TAB Oxybutynin Chloride (Ditropan-Xl Tab) 5 mg DAILY PO 11/13/16 09:00 12/13/16 08:59 11/13/16 09:49 5 MG Polyethylene (Miralax Powder Packet) 17 gm DAILY PRN PO 11/12/16 19:15 12/12/16 19:14 Sodium Chloride ([place] Nasal [place]) 1 sprays PRN PRN NA 11/12/16 19:15 12/12/16 19:14 Thiamine HCl (Vitamin B-1 Tab) 100 mg QAM PO 11/13/16 09:00 12/13/16 08:59 11/13/16 09:48 100 MG Ioversol (Optiray 320) 100 ml UD PRN IV 11/12/16 20:00 11/16/16 19:59 Enoxaparin Sodium (Lovenox Inj) 70 mg Q12 SQ 11/12/16 21:00 12/12/16 20:59 11/13/16 11:16 70 MG Physical Exam Vital Signs (Past 24 Hrs): Date Time Temp Pulse Resp B/P Pulse Ox O2 Delivery O2 Flow Rate FiO2 11/13/16 11:28 Room Air 11/13/16 11:21 36.7 65 18 146/72 92 Room Air 11/13/16 08:00 Room Air 11/13/16 07:59 36.6 70 18 161/87 91 Room Air 69 170/87 11/13/16 04:17 36.6 64 20 128/76 91 Room Air 11/13/16 04:09 95 Room Air 11/13/16 00:00 95 Room Air 11/12/16 23:05 36.3 58 18 143/84 94 Room Air 11/12/16 20:00 36.9 18 162/93 95 Room Air 11/12/16 19:51 56 18 162/93 95 Room Air 11/12/16 17:26 63 18 177/93 95 Room Air 11/12/16 14:45 36.9 103 18 145/90 90 Room Air Physical Exam: Constitutional: appearance nourished, and normal Ears, Nose, Mouth and Throat: mucous membranes moist, no injection and skin normal, eyes normal Cardiovascular: normal S-1 and S-2 and regular rate and rhythm Respiratory: clear to auscultation (CTA) and no rales, rhonchi or wheeze Musculoskeletal: no peripheral edema and good distal pulses, cheek appear erythema and puffy Skin: multiple skin abrasions very thin and multiple areas of trauma Eyes: extraocular muscles intact (EOMI) and pupils equal, round and reactive to light (PERRL) NEUROLOGIC EXAMINATION: Mental status: Alert and interactive Oriented hospital (does not want to talk) Oriented to person Speech fluent with no evidence of aphasia Cranial Nerves smile, eye brow raise symmetric Reflexes: Deep tendon reflexes were symmetrical and graded 2/5. Plantar responses were flexor. Sensory: no deficit to light touch Coordination: finger to nose without bi pass Gait/Stance: lying in bed Strength: right biceps triceps deltoids 5/5, hip flex ext patellar flex ext plantar flex ext 4+/5 left biceps triceps deltoids 5/5, hip flex ext patellar flex ext plantar flex ext 5/5 Laboratory Results Past 24 Hours: 11/13/16 03:22 11/13/16 03:22 11/13/16 10:06 Test 11/12/16 15:30 11/12/16 15:50 11/12/16 20:53 11/12/16 22:00 Immature Granulocyte % (Auto) 0.4 % White Blood Count 9.58 K/uL (4.8-10.8) Red Blood Count 4.21 M/uL (4.7-6.1) Hemoglobin 14.6 g/dL (14.0-18.0) Hematocrit 42.1 % (42-52) Mean Corpuscular Volume 100.0 fL (80-100) Mean Corpuscular Hemoglobin 34.7 pg (25-34) Mean Corpuscular Hemoglobin Concent 34.7 g/dl (32-36) Platelet Count 144 K/uL (130-400) Mean Platelet Volume 9.2 fL (7.4-10.4) Neutrophils (%) (Auto) 92.0 % Lymphocytes (%) (Auto) 5.0 % Monocytes (%) (Auto) 2.6 % Eosinophils (%) (Auto) 0.0 % Basophils (%) (Auto) 0.0 % Neutrophils # (Auto) 8.81 K/uL (1.4-6.5) Lymphocytes # (Auto) 0.48 K/uL (1.2-3.4) Monocytes # (Auto) 0.25 K/uL (0.11-0.59) Eosinophils # (Auto) 0.00 K/uL (0-0.5) Basophils # (Auto) 0.00 K/uL (0-0.2) Immature Granulocyte # (Auto) 0.04 K/uL (0.00-0.02) Red Blood Cell Morphology Unremarkable Total Bilirubin 0.5 mg/dl (0.2-1) Direct Bilirubin 0.2 mg/dl (0-0.2) Aspartate Amino Transf (AST/SGOT) 10 U/L (15-37) Alanine Aminotransferase (ALT/SGPT) 34 U/L (12-78) Alkaline Phosphatase 93 U/L (45-117) Total Protein 6.3 gm/dl (6.4-8.2) Albumin 3.0 gm/dl (3.4-5.0) Lipase 202 U/L (73-393) Bedside Troponin I 0.000 ng/ml (0-0.045) Vitamin B12 Level 779 pg/mL (211-911) Folate > 24.00 ng/mL (>5.38) Chemistry Specimen Hemolysis Influenza Type A (RT-PCR) Neg for Influ A (NEG) Influenza Type B (RT-PCR) Neg for Influ B (NEG) Test 11/13/16 03:22 11/13/16 04:55 Red Blood Count 3.76 M/uL (4.7-6.1) Mean Corpuscular Volume 100.5 fL (80-100) Mean Corpuscular Hemoglobin 34.3 pg (25-34) Mean Corpuscular Hemoglobin Concent 34.1 g/dl (32-36) RDW Standard Deviation 48.9 fL (36.4-46.3) RDW Coefficient of Variation 13.5 % (11.5-14.5) Mean Platelet Volume 9.4 fL (7.4-10.4) Prothrombin Time 11.4 SECONDS (9.0-12.0) Prothromb Time International Ratio 1.1 (0.9-1.1) Activated Partial Thromboplast Time 26.7 SECONDS (21.0-31.0) Partial Thromboplastin Ratio 1.0 Anion Gap 6.0 mmol/L (3-11) Est Creatinine Clear Calc Drug Dose 92.5 ml/min Estimated GFR () 107.6 Estimated GFR (Non- 92.9 BUN/Creatinine Ratio 36.3 (10-20) Calcium Level 8.3 mg/dl (8.5-10.1) Magnesium Level 2.1 mg/dl (1.8-2.4) Total Creatine Kinase 36 U/L (39-308) Creatine Kinase MB 2.0 ng/ml (0.5-3.6) Creatine Kinase MB Ratio 5.6 (0-3.0) Troponin I < 0.015 ng/ml (0-0.045) Triglycerides Level 53 mg/dl (0-150) Cholesterol Level 123 mg/dl (0-200) HDL Cholesterol 65 mg/dl LDL Cholesterol, Calculated 47 mg/dl VLDL Cholesterol, Calculated 11 mg/dl Cholesterol/HDL Ratio 1.9 Urine Color YELLOW Urine Appearance CLEAR (CLEAR) Urine pH 5.5 (4.5-7.5) Urine Specific [place] 1.023 (1.000-1.030) Urine Protein NEG (NEG) Urine Glucose (UA) NEG (NEG) Urine Ketones NEG (NEG) Urine Occult Blood NEG (NEG) Urine Nitrite NEG (NEG) Urine Bilirubin NEG (NEG) Urine Urobilinogen NEG (NEG) Urine Leukocyte Esterase NEG (NEG) Urine WBC (Auto) 1-5 /hpf (0-5) Urine RBC (Auto) 0-4 /hpf (0-4) Urine Hyaline Casts (Auto) 1-5 /lpf (0-5) Urine Epithelial Cells (Auto) 5-10 /lpf (0-5) Urine Bacteria (Auto) NEG (NEG) Imaging CT head-There is no hemorrhage, mass effect, or evidence of acute territorial ischemia by CT criteria. Encephalomalacia and postoperative change is again seen in the left frontal lobe consistent with previous tumor resection. There has been no significant change from the 08/14/2015 examination. . Diffuse low attenuation throughout the white matter suggests a history of previous brain radiation. Clinical correlation will be required. doppler LE- . Deep venous thrombosis is identified in the left calf within one of the peroneal veins. There is no above knee deep venous thrombosis identified in the left lower extremity.. There is no sonographic evidence of deep venous thrombosis identified in the right lower extremity. Impression 76 year old s/p tumor resection in 2013 and combo of radiation and chemotherapy with new onset weakness and confusion Plan 1. oncology requesting MRI of brain for further evaluation of possible progression and or edema 2. electrolytes corrected -IV fluids for hydration 3. psychiatry for further evaluation of depression 4. steroids for cerebral edema 5. continue Keppra 1000 mg BID 6. EEG ordered for possible seizure 7. LE Doppler with small vessel DVT 8. MRI ordered further recommendations once completed I have seen and discussed above patient with Dr Shanna Perrin, neurology Pt is known to me remotely. I reviewed his outpt recs, re sz approx 1 year ago when off AC, and new nodular enhancement in brain approx that time requiring repeat chemotx. The pt does not appear currently delirious, and has modest expressive language dysfunction, decreased STM and mild R hemiparesis, arm greater than leg. Reviewing images there appears not to be a new or recurrent tumor and no evidence of acute radiation necrosis. It is certainly possible that what we are seeing is a effect of remote brain irradiation which is not particularly amenable to therapy. if the picture appears to one of progressive memory dysfunction we could try aricept, namenda, but suspect effect would be minimal at best. EEG to eval for subclinical sz. Treating depression may improve pt overall presentation. MOISES Perrin MD
--- NOTE | 2016-11-13 14:51 | Medical Consult ---
Consultation Date of Consultation: Nov 13, 2016. 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 He is status post surgical resection in November 19, 2013, status post chemoradiation concurrently with Temodar. He took metronomic Temodar from March 29, 2014 to February 2015. And metronomic Temodar from September 12, 2015 to May 2016; he discontinued it on his own- refused any further treatment. He also refused routine brain imaging up until last month. Patient had MRI of the brain on 10/29/2016: Left frontal craniectomy postsurgical changes. 4 mm enhancing lesion in the left corpus callosum which is less conspicuous when compared to 08/09/2016. Bilateral the periventricular white matter hyperintensity on T2/FLAIR unchanged likely secondary to post treatment changes with superimposed chronic microangiopathic changes. Several foci of signal dropout noted in the left frontal horn around surgical cavity, likely chronic micro hemorrhage from post treatment changes, stable. Overall stable exam with no tumor progression. Additional history obtained from the patient and his at bedside. His states that he has baseline confusion over the past few months, but became more pronounced in the week prior to hospitalization. He had trouble finding words and did not know what year it was. Also became very weak and was unable to move his lower legs bilaterally. He was using a walker to ambulate, but he fell multiple times the week prior to hospitalization ; he even had asleep on the floor 1 evening as his could not pick him back up. Upon admission into the emergency room, he had a CT of the head that showed possible mild edema in related to prior radiation treatment. He is on oral Decadron and Keppra as an outpatient, but he received bolus dexamethasone 10 mg IV in the ER. His reports that his confusion is much improved today. He is not having headache or dizziness. He denies vision changes. He has not noted any bleeding from any site. He has baseline COPD symptoms, dyspnea cough, diagnosed about 1 month ago, but more prominent more recently. He denies any anorexia, nausea or fevers. He has no peripheral extremity pain or edema. He was diagnosed with a left peroneal vein DVT on admission in started on Lovenox 70 mg twice daily. CTA of the chest is pending. Past Medical/Surgical History Medical Problems: (1) Altered mental status Status: Acute (2) Brain tumor Status: Chronic (3) Dehydration Status: Acute (4) Hypernatremia Status: Acute (5) Weakness Status: Acute Family History Heart disease Social History Smoking Status: Unknown if Ever Smoked Alcohol Use: none Marital Status: Housing Status: lives with significant other Occupation Status: retired Allergies Coded Allergies: No Known Allergies (Unverified , 05/25/14) Current Inpatient Medications Current Inpatient Medications Medications (Trade) Dose Ordered Sig/Adolfo Route Start Time Stop Time Status Last Admin Dose Admin Acetaminophen (Tylenol Tab) 650 mg Q4H PRN PO 11/12/16 19:00 12/12/16 18:59 Ondansetron HCl 4 mg 4 mg Q6H PRN IV 11/12/16 19:00 12/12/16 18:59 Sodium Chloride (1/2 Nss 1000ml) 1,000 ml @ 100 mls/hr Q10H IV 11/12/16 21:00 12/12/16 20:59 11/13/16 06:09 100 MLS/HR Aspirin (Ecotrin Tab) 81 mg DAILY PO 11/13/16 09:00 12/13/16 08:59 11/13/16 09:47 81 MG Atorvastatin Calcium (Lipitor Tab) 40 mg DAILY PO 11/13/16 09:00 12/13/16 08:59 11/13/16 09:48 40 MG Citalopram Hydrobromide (celeXA TAB) 20 mg DAILY PO 11/13/16 09:00 12/13/16 08:59 11/13/16 09:47 20 MG Dexamethasone (Decadron Tab) 2 mg BID@0900,1500 PO 11/13/16 09:00 12/13/16 08:59 11/13/16 09:49 2 MG Folic Acid (Folvite Tab) 1 mg QAM PO 11/13/16 09:00 12/13/16 08:59 11/13/16 09:48 1 MG Levetiracetam (Keppra Tab) 1,000 mg BID PO 11/12/16 21:00 12/12/16 20:59 11/13/16 09:47 1,000 MG Lisinopril (Zestril Tab) 5 mg DAILY PO 11/13/16 09:00 12/13/16 08:59 11/13/16 09:48 5 MG Multivitamins (Multivitamin Tab) 1 tab QAM PO 11/13/16 09:00 12/13/16 08:59 11/13/16 09:49 1 TAB Oxybutynin Chloride (Ditropan-Xl Tab) 5 mg DAILY PO 11/13/16 09:00 12/13/16 08:59 11/13/16 09:49 5 MG Polyethylene (Miralax Powder Packet) 17 gm DAILY PRN PO 11/12/16 19:15 12/12/16 19:14 Sodium Chloride ([place] Nasal [place]) 1 sprays PRN PRN NA 11/12/16 19:15 12/12/16 19:14 Thiamine HCl (Vitamin B-1 Tab) 100 mg QAM PO 11/13/16 09:00 12/13/16 08:59 11/13/16 09:48 100 MG Ioversol (Optiray 320) 100 ml UD PRN IV 11/12/16 20:00 11/16/16 19:59 Enoxaparin Sodium (Lovenox Inj) 70 mg Q12 SQ 11/12/16 21:00 12/12/16 20:59 11/13/16 11:16 70 MG Review of Systems Constitutional: + weakness, No chills, No fever, No sweats Eyes: No worsening of vision Respiratory: + cough (see HPI), + shortness of breath (see HPI), + sputum (see HPI) Cardiovascular: No chest pain, No edema Abdomen: No GI bleeding, No constipation, No diarrhea, No nausea, No pain, No vomiting Musculoskeletal: No calf pain Genitourinary - Male: No hematuria Neurologic: + balance problems, + memory loss, + weakness, No vertigo Hematologic / Lymphatic: + clotting problems Integumentary: No rash Physical Exam Date Time Temp Pulse Resp B/P Pulse Ox O2 Delivery O2 Flow Rate FiO2 11/13/16 11:28 Room Air 11/13/16 11:21 36.7 65 18 146/72 92 Room Air 11/13/16 08:00 Room Air 11/13/16 07:59 36.6 70 18 161/87 91 Room Air 69 170/87 11/13/16 04:17 36.6 64 20 128/76 91 Room Air 11/13/16 04:09 95 Room Air 11/13/16 00:00 95 Room Air 11/12/16 23:05 36.3 58 18 143/84 94 Room Air 11/12/16 20:00 36.9 18 162/93 95 Room Air 11/12/16 19:51 56 18 162/93 95 Room Air 11/12/16 17:26 63 18 177/93 95 Room Air 11/12/16 14:45 36.9 103 18 145/90 90 Room Air General Appearance: WD/WN, no apparent distress, + obese ENT: hearing grossly normal Respiratory/Chest: lungs clear, no respiratory distress, no accessory muscle use Cardiovascular: regular rate, rhythm, no edema Abdomen/GI: normal bowel sounds, non tender, soft Extremities/Musculoskelatal: no calf tenderness, no pedal edema Neurologic/Psych: alert, oriented x 3 Skin: no rash Laboratory Results 11/12/16 15:30 Red Blood Count 4.21, Mean Corpuscular Volume 100.0, Mean Corpuscular Hemoglobin 34.7, Mean Corpuscular Hemoglobin Concent 34.7, Mean Platelet Volume 9.2, Neutrophils (%) (Auto) 92.0, Lymphocytes (%) (Auto) 5.0, Monocytes (%) ( Auto) 2.6, Eosinophils (%) (Auto) 0.0, Basophils (%) (Auto) 0.0, Neutrophils # ( Auto) 8.81, Lymphocytes # (Auto) 0.48, Monocytes # (Auto) 0.25, Eosinophils # ( Auto) 0.00, Basophils # (Auto) 0.00 11/13/16 03:22 11/12/16 15:30 11/12/16 20:53 11/13/16 03:22 11/13/16 10:06 Test 11/12/16 15:30 11/12/16 15:50 11/12/16 18:27 11/12/16 20:53 White Blood Count 9.58 K/uL (4.8-10.8) Red Blood Count 4.21 M/uL (4.7-6.1) Hemoglobin 14.6 g/dL (14.0-18.0) Hematocrit 42.1 % (42-52) Mean Corpuscular Volume 100.0 fL (80-100) Mean Corpuscular Hemoglobin 34.7 pg (25-34) Mean Corpuscular Hemoglobin Concent 34.7 g/dl (32-36) Platelet Count 144 K/uL (130-400) Mean Platelet Volume 9.2 fL (7.4-10.4) Neutrophils (%) (Auto) 92.0 % Lymphocytes (%) (Auto) 5.0 % Monocytes (%) (Auto) 2.6 % Eosinophils (%) (Auto) 0.0 % Basophils (%) (Auto) 0.0 % Neutrophils # (Auto) 8.81 K/uL (1.4-6.5) Lymphocytes # (Auto) 0.48 K/uL (1.2-3.4) Monocytes # (Auto) 0.25 K/uL (0.11-0.59) Eosinophils # (Auto) 0.00 K/uL (0-0.5) Basophils # (Auto) 0.00 K/uL (0-0.2) RDW Standard Deviation 49.8 fL (36.4-46.3) RDW Coefficient of Variation 13.7 % (11.5-14.5) Immature Granulocyte % (Auto) 0.4 % Immature Granulocyte # (Auto) 0.04 K/uL (0.00-0.02) Red Blood Cell Morphology Unremarkable Prothrombin Time 10.7 SECONDS (9.0-12.0) Prothromb Time International Ratio 1.0 (0.9-1.1) Activated Partial Thromboplast Time 24.6 SECONDS (21.0-31.0) Partial Thromboplastin Ratio 0.9 Anion Gap 7.0 mmol/L (3-11) 9.0 mmol/L (3-11) Est Creatinine Clear Calc Drug Dose 64.5 ml/min 80.8 ml/min Estimated GFR () 86.0 101.8 Estimated GFR (Non- 74.2 87.8 BUN/Creatinine Ratio 27.1 (10-20) 29.9 (10-20) Calcium Level 9.0 mg/dl (8.5-10.1) 8.6 mg/dl (8.5-10.1) Magnesium Level 2.2 mg/dl (1.8-2.4) Total Bilirubin 0.5 mg/dl (0.2-1) Direct Bilirubin 0.2 mg/dl (0-0.2) Aspartate Amino Transf (AST/SGOT) 10 U/L (15-37) Alanine Aminotransferase (ALT/SGPT) 34 U/L (12-78) Alkaline Phosphatase 93 U/L (45-117) Total Creatine Kinase 45 U/L (39-308) 50 U/L (39-308) Creatine Kinase MB 1.5 ng/ml (0.5-3.6) 1.9 ng/ml (0.5-3.6) Creatine Kinase MB Ratio 3.3 (0-3.0) (0-3.0) 3.8 (0-3.0) Troponin I < 0.015 ng/ml (0-0.045) < 0.015 ng/ml (0-0.045) Total Protein 6.3 gm/dl (6.4-8.2) Albumin 3.0 gm/dl (3.4-5.0) Lipase 202 U/L (73-393) Bedside Troponin I 0.000 ng/ml (0-0.045) Vitamin B12 Level 779 pg/mL (211-911) Folate > 24.00 ng/mL (>5.38) Chemistry Specimen Hemolysis Test 11/12/16 21:30 11/12/16 22:00 11/13/16 03:22 11/13/16 04:55 Creatine Kinase MB Ratio (0-3.0) 5.6 (0-3.0) Influenza Type A (RT-PCR) Neg for Influ A (NEG) Influenza Type B (RT-PCR) Neg for Influ B (NEG) Red Blood Count 3.76 M/uL (4.7-6.1) Mean Corpuscular Volume 100.5 fL (80-100) Mean Corpuscular Hemoglobin 34.3 pg (25-34) Mean Corpuscular Hemoglobin Concent 34.1 g/dl (32-36) RDW Standard Deviation 48.9 fL (36.4-46.3) RDW Coefficient of Variation 13.5 % (11.5-14.5) Mean Platelet Volume 9.4 fL (7.4-10.4) Prothrombin Time 11.4 SECONDS (9.0-12.0) Prothromb Time International Ratio 1.1 (0.9-1.1) Activated Partial Thromboplast Time 26.7 SECONDS (21.0-31.0) Partial Thromboplastin Ratio 1.0 Anion Gap 6.0 mmol/L (3-11) Est Creatinine Clear Calc Drug Dose 92.5 ml/min Estimated GFR () 107.6 Estimated GFR (Non- 92.9 BUN/Creatinine Ratio 36.3 (10-20) Calcium Level 8.3 mg/dl (8.5-10.1) Magnesium Level 2.1 mg/dl (1.8-2.4) Total Creatine Kinase 36 U/L (39-308) Creatine Kinase MB 2.0 ng/ml (0.5-3.6) Troponin I < 0.015 ng/ml (0-0.045) Triglycerides Level 53 mg/dl (0-150) Cholesterol Level 123 mg/dl (0-200) HDL Cholesterol 65 mg/dl LDL Cholesterol, Calculated 47 mg/dl VLDL Cholesterol, Calculated 11 mg/dl Cholesterol/HDL Ratio 1.9 Urine Color YELLOW Urine Appearance CLEAR (CLEAR) Urine pH 5.5 (4.5-7.5) Urine Specific [place] 1.023 (1.000-1.030) Urine Protein NEG (NEG) Urine Glucose (UA) NEG (NEG) Urine Ketones NEG (NEG) Urine Occult Blood NEG (NEG) Urine Nitrite NEG (NEG) Urine Bilirubin NEG (NEG) Urine Urobilinogen NEG (NEG) Urine Leukocyte Esterase NEG (NEG) Urine WBC (Auto) 1-5 /hpf (0-5) Urine RBC (Auto) 0-4 /hpf (0-4) Urine Hyaline Casts (Auto) 1-5 /lpf (0-5) Urine Epithelial Cells (Auto) 5-10 /lpf (0-5) Urine Bacteria (Auto) NEG (NEG) CT of the head from 11/12/2016: Left frontal encephalomalacia consistent with previous tumor resection. Postoperative changes again noted deep to the craniotomy site. Diffuse edema throughout the white matter, likely related to radiation therapy. Age-related involutional with volume loss and microangiopathic change. No hemorrhage, mass effect or evidence of acute territorial ischemia. Chest x-ray from 11/12/2016: Mild perihilar interstitial thickening. This could be due to developing congestive change. Venous Doppler of the lower extremities from 11/12/2016: Deep venous thrombosis identified in the left cough within 1 of the peroneal veins. No above knee deep venous thrombosis identified in the left lower extremity. No sonographic evidence of deep venous thrombosis identified in the right lower extremity. Assessment & Plan (1) Altered mental status Status: Acute Assessment & Plan: See # 2. (2) Oligodendroglioma of brain Status: Chronic Assessment & Plan: Patient is s/p treatment with resection followed by chemoradiation with Temodar completed in 2014 as detailed above; he then resumed Temodar 09/13, but he stopped medication on his own accord per his preference in 05/2016. He then refused further treatment; he also refused follow up imaging until later last month. He had brain MRI last month that was negative for progressive disease. With his acute onset of confusion in past week, he had CT of head which possibly shows post-RT edema, but no recurrent lesions, and so he received 10 mg IV dexamethasone in the ER last evening; he does remain on dexamethasone and Keppra as outpatient. Spoke with Dr. Alves about the case and he agrees for MRI brain to further characterize possible findings on CT. Spoke with Dr. Valverde and he is agreeable to ordering this test for patient and will be done today. Patient's confusion has significantly improved today, per . Continue to monitor until results of MRI are finalized, remain on dexamethasone 2 mg BID and Keppra 1000 mg BID. Neurology consult pending- will await consult recommendations. (3) Weakness Status: Acute Assessment & Plan: See #2. (4) Peroneal DVT (deep venous thrombosis) Assessment & Plan: Patient has acute DVT of left peroneal vein, no above knee DVT in left leg; no DVT in RLE. Patient started on Lovenox 70 gm BID, continue at this time until brain MRI attained and finalized. CTA pending, but will likely be done tomorrow as patient cannot have contrast for brain MRI and CTA in same day after discussing with Dr. Valverde. Patient noted to have low O2 sat today- 91%, but pulse is normal. Per Dr. Valverde, patient's has concern with anticoagulation as he is a fall risk, so this will be considered at time of decision for [facility] anticoagulation. I performed history and physical examination of the patient. I have discussed the patient's case, impression and plan with Nika Muller PA-C. Her note reflects my findings and plan. He is a 76-year-old male, a case of left frontal oligodendroglioma, S/P resection in early 2013, S/P combined chemo radiation treatment with temozolomide and then additional single agent chemotherapy temozolomide for about 1 year which was discontinued in February,, had a recent the follow-up MRI of the brain done on 10/29/2016 showed no evidence of recurrent disease, now admitted Hospital for some acute confusional status, on small dose of steroid therapy, blood workup showed hypernatremia with a sodium level of 149, repeat MRI of the brain shows once again no new suspicious findings, no evidence of recurrence of oligodendroglioman noted. New left lower extremity DVT, agree about Lovenox treatment at this time. He will continue to have follow-up with Dr. Lock as an outpatient. Kit Alves MD Hematology/Oncology
--- NOTE | 2016-11-13 16:06 | DIAGNOSTIC IMAGING REPORT ---
MRI OF THE BRAIN COMBO CLINICAL HISTORY: Change in mental status. History of glioblastoma with resection. COMPARISON STUDY: CT brain dated 11/12/2016. MRI of the brain dated 08/13/2015. TECHNIQUE: MRI of the brain was performed utilizing various T1 and T2-weighted sequences in the axial, sagittal, and coronal planes. Contrast-enhanced sequences were acquired following the administration of 7.1 cc of Gadavist. FINDINGS: Brain parenchyma: Left frontal encephalomalacia is consistent with previous tumor resection. Postoperative change is identified deep to the craniotomy site. There is no evidence of recurrent/residual enhancing tumor on the postcontrast images. Extensive white matter change is likely related to previous radiation. There is no hemorrhage or mass effect. There is no restricted diffusion to suggest acute ischemia. There is age-related volume loss. No extra-axial fluid collection is seen. The cerebellar tonsils are normal in configuration. Ventricles, sulci, and cisterns: Prominent secondary to involutional change. There is ex vacuo dilatation of the frontal horn of the left lateral ventricle. Pituitary and sella: Unremarkable. Intracranial vasculature: Normal flow voids are maintained at the skull base. Orbits: The bony orbits are grossly intact. Orbital contents are normal in appearance noting bilateral ocular lens implants. Sinuses and mastoids: Mucosal thickening is present within the ethmoid sinuses. The remaining paranasal sinuses and mastoid air cells are clear. Calvarium: There are changes from left-sided craniotomy. No destructive calvarial lesion is seen. Cervical cord: Partially visualized cervical spinal cord is normal in morphology and signal intensity. IMPRESSION: 1. There is no hemorrhage or evidence of acute ischemia. 2. Again seen is post craniotomy change on the left with left frontal encephalomalacia at the site of previous tumor resection. There is no evidence of recurrent/residual enhancing tumor on the postcontrast images. 3. Extensive white matter change is likely related to previous radiation treatment. Electronically signed by: Eloy Sanchez M.D. 11/13/2016 4:04 PM Dictated Date/Time: 11/13/2016 3:59 PM
[2016-11-14] VITALS (7 sets, daily range): BP systolic 136–174; BP diastolic 78–88; PULSE 53–80; TEMP 36.5–36.9; O2SAT 90–93
[2016-11-14] MEDS: SODIUM CHLORIDE 0.45% 1000ML 1,000 ML IV SCH ×2 (04:19→13:39)
[2016-11-14] MEDS: ENOXAPARIN 80 MG/0.8 ML SYR SQ SCH ×2 (09:00→20:14)
[2016-11-14] MEDS: OXYBUTYNIN CHLORIDE 5 MG TABCR PO SCH (09:13)
[2016-11-14] MEDS: MULTIVITAMIN TAB PO SCH (09:13)
[2016-11-14] MEDS: LISINOPRIL 5 MG TAB PO SCH (09:13)
[2016-11-14] MEDS: THIAMINE HCL 100 MG TAB PO SCH (09:13)
[2016-11-14] MEDS: DEXAMETHASONE 4 MG TAB PO SCH ×2 (09:14→16:49)
[2016-11-14] MEDS: CITALOPRAM 20 MG TAB PO SCH (09:14)
[2016-11-14] MEDS: LEVETIRACETAM 500 MG TAB PO SCH ×2 (09:14→20:15)
[2016-11-14] MEDS: ASPIRIN 81 MG ECTAB PO SCH (09:15)
[2016-11-14] MEDS: ATORVASTATIN 20 MG TAB PO SCH (09:15)
--- NOTE | 2016-11-14 15:32 | Neurology Progress Notes ---
Neurology Progress Note Date of Service Nov 14, 2016. Tricia Ahuja is a 76 year old male with PMH of Malignant Glioma s/p resection, chemo , radiation, CAD, HTN, HLD, seizures, COPD. His is in the room and he is lying flat in the bed with is eyes closed. His reports that over the past 2 months he has had a steady mental and physical decline. Over the past week it has been a steep decline with confusion and "can't find the words he needs to say." He uses a walker but over the past week he has had increased difficulty ambulating. he is right hemiplegia and had least 5 falls in the last week which she states is more of a slow collapse to the floor. She was unable to get him up so they slept on the floor all night. She states he is eating ok but very slowly but his fluid intake is very minimal. he stopped chemotherapy in the fall and was refusing to have MRIs until very recently. He was started about a month ago on Celexa by his PCP due to depression. He denies fevers, chills, cough, chest pain, SOB, nausea, vomiting, diarrhea, dysuria, LOC and head trauma. According to EPIC chart he had the following. 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 today he is lying in bed and states he has not been OOB to the bathroom and PT/ OT has not worked with him. He thinks he is weaker than when he came in. reports that he is urinating in bed at time. He states sometimes he just doesn' t know he needs to go. denies CP, SOB, abdominal pain, one sided weakness, numbness tingling, N, V. Objective Date Time Temp Pulse Resp B/P Pulse Ox O2 Delivery O2 Flow Rate FiO2 11/14/16 11:34 Room Air 11/14/16 11:30 36.9 80 16 145/78 90 Room Air 11/14/16 07:50 Room Air 11/14/16 07:04 36.5 55 18 160/79 93 Room Air 11/14/16 04:08 36.8 53 18 174/88 93 Room Air 11/14/16 04:00 Room Air 11/14/16 00:00 Room Air 11/13/16 23:43 36.6 67 18 136/74 93 Room Air 11/13/16 20:00 Room Air 11/13/16 19:30 36.4 60 18 144/83 92 Room Air 11/13/16 15:34 36.7 60 18 127/70 91 Room Air 11/13/16 15:29 Room Air Last 24 Hours Test 11/14/16 07:00 Sodium Level 144 mmol/L Imaging: MRI with and without- Brain parenchyma: Left frontal encephalomalacia is consistent with previous tumor resection. Postoperative change is identified deep to the craniotomy site. There is no evidence of recurrent/residual enhancing tumor on the postcontrast images. Extensive white matter change is likely related to previous radiation. There is no hemorrhage or mass effect. There is no restricted diffusion to suggest acute ischemia. There is age-related volume loss. No extra-axial fluid collection is seen. The cerebellar tonsils are normal in configuration. Ventricles, sulci, and cisterns: Prominent secondary to involutional change. There is ex vacuo dilatation of the frontal horn of the left lateral ventricle. Pituitary and sella: Unremarkable. Intracranial vasculature: Normal flow voids are maintained at the skull base. Orbits: The bony orbits are grossly intact. Orbital contents are normal in appearance noting bilateral ocular lens implants. Sinuses and mastoids: Mucosal thickening is present within the ethmoid sinuses. The remaining paranasal sinuses and mastoid air cells are clear. Calvarium: There are changes from left-sided craniotomy. No destructive calvarial lesion is seen. Cervical cord: Partially visualized cervical spinal cord is normal in morphology and signal intensity. Exam: Physical Exam: Constitutional appearance nourished, healthy and normal Ears, Nose, Mouth and Throat: mucous membranes moist, no injection and skin normal, eyes normal Cardiovascular: normal S-1 and S-2 and regular rate and rhythm Respiratory: clear to auscultation (CTA) and no rales, rhonchi or wheeze Musculoskeletal: no peripheral edema and good distal pulses Skin: no stigmata of neurocutaneous disease noted and normal and intact Eyes: extraocular muscles intact (EOMI) and pupils equal, round and reactive to light (PERRL) NEUROLOGIC EXAMINATION: Mental status: Alert and interactive Oriented to full date and location Oriented to person Speech fluent with no evidence of aphasia Cranial Nerves smile and eye brow raise symmetric Reflexes: Deep tendon reflexes were symmetrical and graded 2/5. Plantar responses were flexor. Sensory: to light touch Coordination: finger to nose without bipass Gait/Stance: lying in bed Strength: right biceps triceps deltoids 5/5, hip flex ext patellar flex ext plantar flex ext 4+/5 left biceps triceps deltoids 5/5, hip flex ext patellar flex ext plantar flex ext 5/5 Current Inpatient Medications Medications (Trade) Dose Ordered Sig/Adolfo Route Start Time Stop Time Status Last Admin Dose Admin Acetaminophen (Tylenol Tab) 650 mg Q4H PRN PO 11/12/16 19:00 12/12/16 18:59 Ondansetron HCl 4 mg 4 mg Q6H PRN IV 11/12/16 19:00 12/12/16 18:59 Sodium Chloride (1/2 Nss 1000ml) 1,000 ml @ 100 mls/hr Q10H IV 11/12/16 21:00 12/12/16 20:59 11/14/16 13:39 100 MLS/HR Aspirin (Ecotrin Tab) 81 mg DAILY PO 11/13/16 09:00 12/13/16 08:59 11/14/16 09:15 81 MG Atorvastatin Calcium (Lipitor Tab) 40 mg DAILY PO 11/13/16 09:00 12/13/16 08:59 11/14/16 09:15 40 MG Citalopram Hydrobromide (celeXA TAB) 20 mg DAILY PO 11/13/16 09:00 12/13/16 08:59 11/14/16 09:14 20 MG Dexamethasone (Decadron Tab) 2 mg BID@0900,1500 PO 11/13/16 09:00 12/13/16 08:59 11/14/16 09:14 2 MG Folic Acid (Folvite Tab) 1 mg QAM PO 11/13/16 09:00 12/13/16 08:59 11/14/16 09:13 1 MG Levetiracetam (Keppra Tab) 1,000 mg BID PO 11/12/16 21:00 12/12/16 20:59 11/14/16 09:14 1,000 MG Lisinopril (Zestril Tab) 5 mg DAILY PO 11/13/16 09:00 12/13/16 08:59 11/14/16 09:13 5 MG Multivitamins (Multivitamin Tab) 1 tab QAM PO 11/13/16 09:00 12/13/16 08:59 11/14/16 09:13 1 TAB Oxybutynin Chloride (Ditropan-Xl Tab) 5 mg DAILY PO 11/13/16 09:00 12/13/16 08:59 11/14/16 09:13 5 MG Polyethylene (Miralax Powder Packet) 17 gm DAILY PRN PO 11/12/16 19:15 12/12/16 19:14 Sodium Chloride (Mellette Nasal [place]) 1 sprays PRN PRN NA 11/12/16 19:15 12/12/16 19:14 Thiamine HCl (Vitamin B-1 Tab) 100 mg QAM PO 11/13/16 09:00 12/13/16 08:59 11/14/16 09:13 100 MG Ioversol (Optiray 320) 100 ml UD PRN IV 11/12/16 20:00 11/16/16 19:59 Enoxaparin Sodium (Lovenox Inj) 70 mg Q12 SQ 11/12/16 21:00 12/12/16 20:59 11/13/16 20:04 70 MG Impression 76 year old s/p tumor resection in 2013 and combo of radiation and chemotherapy with new onset weakness and confusion Plan 1. oncology requesting MRI of brain for further evaluation of possible progression and or edema- stable 2. electrolytes corrected -IV fluids for hydration 3. psychiatry for further evaluation of depression 4. steroids for cerebral edema 5. continue Keppra 1000 mg BID 6. EEG ordered for possible seizure -pending read 7. LE Doppler with small vessel DVT 8. keppra level pending 9. b12, folate and TSH normal will order RPR and lyme I have seen and discussed above patient with Dr Shanna Perrin, neurology Pt seen and examined. No evidence of tumor recurrence, extensive post- irradiation changes. Suspect cognitive and general decline is related to [facility] effect of total brain irradiation. Await EEG report to r/o subclinical sz. No clear treatment has been found to be effective. We could use aricept/ namenda at some point. MOISES Perrin MD
--- NOTE | 2016-11-14 16:50 | ELECTROENCEPHALOGRAPH REPORT ---
REQUESTING PHYSICIAN: Dr. Garcia. CLINICAL DIAGNOSIS: Change in mental status with ambulatory dysfunction. EEG DIAGNOSIS: Focally abnormal EEG, left hemisphere maximum central-mid temporal regions with increased amounts of polymorphic theta delta activity, but no clear potentially epileptogenic activity. DESCRIPTION OF TRACING: This EEG was done as a bedside recording with simultaneous video analysis of patient movement and behavior. Photic stimulation was performed. Hyperventilation was not and drowsiness and light sleep are not clearly recorded. Under these conditions, there appears to be a normal background rhythm in the posterior head regions at about to 9-10 Hz of maximum frequency and 30 microvolts of maximum amplitude. This is maximum in posterior head regions bilaterally symmetrical. Theta activity is seen in normal amounts over the right hemisphere, but over the left theta activity shifted into slower frequencies and is of higher amplitude is mixed with some delta activity in its upper ranges. At no time does this activity become rhythmic nor are there any associated sharp waves or spike and wave discharges. This remains constant throughout most of the recording. Beta activity is difficult to dissect in the left frontal region but is present on the right. Photic stimulation provokes a minimal driving response without a photomyogenic or photoparoxysmal component. Again, as noted above, there is no clear evidence for potentially epileptogenic activity in the form of polyspike or spike wave bursts, focal sharp waves or focal spikes. INTERPRETATION: This EEG indicates evidence for focal neurologic dysfunction overlying the central-mid temporal regions of left hemisphere. An underlying structural lesion is likely present. There is no clear evidence for associated potentially epileptogenic activity but its absence does not exclude the potential diagnosis of a seizure disorder. MTDD
--- NOTE | 2016-11-14 16:59 | Progress Note ---
Medicine Progress Note Date & Time of Visit: Nov 14, 2016 at 16:50. Subjective seen resting in bed, appears comfortable interactive, less irritable oriented to person, needs prodding with time and place denies headache, nausea no cough, abdominal pain, diarrhea no other symptoms Objective Last 8 Hrs Date Time Temp Pulse Resp B/P Pulse Ox O2 Delivery O2 Flow Rate FiO2 11/14/16 16:09 36.8 65 18 136/87 91 Room Air 11/14/16 11:34 Room Air 11/14/16 11:30 36.9 80 16 145/78 90 Room Air Physical Exam: General- oriented x 2, not in distress, speaks in sentences with no effort Head- atraumatic Eyes- anicteric Neck- supple, no JVD Lungs- clear to auscultation bilaterally Heart- normal rate, regular rhythm; no murmurs Abdomen- normal bowel sounds, soft, nontender Extremities- no pretibial edema, no calf tenderness; peripheral pulses intact Neuro- alert, oriented x 2; no facial asymmetry, mild RUE weakness Skin- warm & dry Laboratory Results: Last 24 Hours Test 11/14/16 07:00 11/14/16 15:22 11/14/16 16:23 Sodium Level 144 mmol/L Assessment & Plan 76 year old male with PMHx of glioma, s/p chemo, radiation, resection ([id number] ) presents with worsening confusion and ambulatory dysfunction CONFUSION, Improving Possible Metabolic Encephalopathy from Hypernatremia Possible Cognitive Dysfunction from Radiation History of Oligodendroglioma, s/p Resection, Radiation, Chemo -CT with per radiologist read Diffuse low attenuation throughout the white matter suggests a history of previous brain radiation. Clinical correlation will be required. MRI Brain: 10/29/16- stable repeat MRI Brain: 11/13/16- 1. There is no hemorrhage or evidence of acute ischemia. 2. Again seen is post craniotomy change on the left with left frontal encephalomalacia at the site of previous tumor resection. There is no evidence of recurrent/residual enhancing tumor on the postcontrast images. 3. Extensive white matter change is likely related to previous radiation treatment. - No signs of Infection: Flu negative CXR clear UA no signs of UTI Blood Culture: negative - Na improving from 149 to 147 to 144 continue 1/2 NSS monitor Na this PM - EEG pending RPR, Lyme Titers also pending - Neurology consulted Oncology consulted - appreciate the recommendations other work up: -B12 and folate : normal -check orthostatic VS -Serial Don: negative AMBULATORY DYSFUNCTION -? secondary to dehydration - gentle IVF hydration done - PT/OT eval HYPERNATREMIA -149, likely secondary to poor po intake -give 1/2 NS at 100ml/hr x 1L - Na improving to 144 monitor LEFT PERONEAL DVT -Lovenox 1mg/kg -R/O PE check CTA: pending- will order for tomorrow MALIGNANT GLIOMA OF BRAIN -S/p resection, chemo, radiation -possible edema secondary to radiation -received 10mg IV Decadron in ED -continue outpatient Decadron dose -Heme/onc consult - follows with Dr. Lock HISTORY OF SEIZURES -continue Venkat Robledo level : pending CAD -No complaints of chest pain -EKG nonischemic - Cardiac Markers negative Echo:pending - on Aspirin, Statin DEPRESSION - continue Celexa - per , showing some signs of worsening depression - will order Psych consult HLD -continue Statin HTN -continue lisinopril DVT PROPHYLAXIS: Sq Lovenox BID CODE STATUS: LEVEL 5 DNR DISPO pending lives at home with may need Rehab/SNF Current Inpatient Medications: Current Inpatient Medications Medications (Trade) Dose Ordered Sig/Adolfo Route Start Time Stop Time Status Last Admin Dose Admin Acetaminophen (Tylenol Tab) 650 mg Q4H PRN PO 11/12/16 19:00 12/12/16 18:59 Ondansetron HCl (Zofran Inj) 4 mg Q6H PRN IV 11/12/16 19:00 12/12/16 18:59 Aspirin (Ecotrin Tab) 81 mg DAILY PO 11/13/16 09:00 12/13/16 08:59 11/14/16 09:15 81 MG Atorvastatin Calcium (Lipitor Tab) 40 mg DAILY PO 11/13/16 09:00 12/13/16 08:59 11/14/16 09:15 40 MG Citalopram Hydrobromide (celeXA TAB) 20 mg DAILY PO 11/13/16 09:00 12/13/16 08:59 11/14/16 09:14 20 MG Dexamethasone (Decadron Tab) 2 mg BID@0900,1500 PO 11/13/16 09:00 12/13/16 08:59 11/14/16 16:49 2 MG Folic Acid (Folvite Tab) 1 mg QAM PO 11/13/16 09:00 12/13/16 08:59 11/14/16 09:13 1 MG Levetiracetam (Keppra Tab) 1,000 mg BID PO 11/12/16 21:00 12/12/16 20:59 11/14/16 09:14 1,000 MG Lisinopril (Zestril Tab) 5 mg DAILY PO 11/13/16 09:00 12/13/16 08:59 11/14/16 09:13 5 MG Multivitamins (Multivitamin Tab) 1 tab QAM PO 11/13/16 09:00 12/13/16 08:59 11/14/16 09:13 1 TAB Oxybutynin Chloride (Ditropan-Xl Tab) 5 mg DAILY PO 11/13/16 09:00 12/13/16 08:59 11/14/16 09:13 5 MG Polyethylene (Miralax Powder Packet) 17 gm DAILY PRN PO 11/12/16 19:15 12/12/16 19:14 Sodium Chloride (Rolette Nasal [place]) 1 sprays PRN PRN NA 11/12/16 19:15 12/12/16 19:14 Thiamine HCl (Vitamin B-1 Tab) 100 mg QAM PO 11/13/16 09:00 12/13/16 08:59 11/14/16 09:13 100 MG Ioversol (Optiray 320) 100 ml UD PRN IV 11/12/16 20:00 11/16/16 19:59 Enoxaparin Sodium (Lovenox Inj) 70 mg Q12 SQ 11/12/16 21:00 12/12/16 20:59 11/13/16 20:04 70 MG
[2016-11-14 17:08] LABS: BASO % 0.1 %; BASO ABS # 0.01 K/uL (0-0.2); COMPLETE YES; EOS % 0.4 %; HEMATOCRIT 37.9 % (42-52); LYMPH % 5.1 %; LYMPH ABS # 0.37 K/uL (1.2-3.4); MEAN CELL VOLUME 99.5 fL (80-100); MEAN CORPUSCULAR HEMOGLOBIN 34.6 pg (25-34); MEAN CORPUSCULAR HGB CONC 34.8 g/dl (32-36); MEAN PLATELET VOLUME 9.5 fL (7.4-10.4); NEUT % 85.4 %; PLATELET COUNT 129 K/uL (130-400); RED BLOOD COUNT 3.81 M/uL (4.7-6.1); WHITE BLOOD COUNT 7.27 K/uL (4.8-10.8)
[2016-11-14 17:30] LABS: BUN/CREATININE RATIO 21.1 (10-20); CALCIUM 8.2 mg/dl (8.5-10.1); POTASSIUM 3.7 mmol/L (3.5-5.1)
[2016-11-14 20:37] LABS: LYME DISEASE AB IGG NEG (NEG); LYME DISEASE AB IGM NEG (NEG)
[2016-11-14] MEDS: SODIUM CHLOR 0.45% + 20MEQ KCL 1,000 ML IV SCH (22:25)
[2016-11-15] VITALS (9 sets, daily range): BP systolic 111–182; BP diastolic 60–94; PULSE 51–61; TEMP 36.4–36.7; O2SAT 90–93
[2016-11-15 00:16] LABS: RAPID PLASMA REAGIN NONREACTIVE (NONREACT)
[2016-11-15 07:46] LABS: HEMATOCRIT 36.2 % (42-52); MEAN CELL VOLUME 96.5 fL (80-100); MEAN CORPUSCULAR HEMOGLOBIN 34.4 pg (25-34); MEAN CORPUSCULAR HGB CONC 35.6 g/dl (32-36); MEAN PLATELET VOLUME 8.9 fL (7.4-10.4); PLATELET COUNT 123 K/uL (130-400); RED BLOOD COUNT 3.75 M/uL (4.7-6.1)
[2016-11-15] MEDS: CITALOPRAM 20 MG TAB PO SCH (09:00)
[2016-11-15] MEDS: ATORVASTATIN 20 MG TAB PO SCH (09:00)
[2016-11-15] MEDS: THIAMINE HCL 100 MG TAB PO SCH (09:00)
[2016-11-15] MEDS: MULTIVITAMIN TAB PO SCH (09:00)
[2016-11-15] MEDS: DEXAMETHASONE 4 MG TAB PO SCH ×2 (09:07→14:44)
[2016-11-15] MEDS: OXYBUTYNIN CHLORIDE 5 MG TABCR PO SCH (09:08)
[2016-11-15] MEDS: ASPIRIN 81 MG ECTAB PO SCH (09:09)
[2016-11-15] MEDS: LISINOPRIL 5 MG TAB PO SCH (09:10)
[2016-11-15] MEDS: LEVETIRACETAM 500 MG TAB PO SCH ×2 (09:10→21:03)
[2016-11-15] MEDS: ENOXAPARIN 80 MG/0.8 ML SYR SQ SCH ×2 (09:14→21:04)
[2016-11-15 09:52] LABS: BUN/CREATININE RATIO 26.4 (10-20); CALCIUM 8.5 mg/dl (8.5-10.1); CREATININE 0.66 mg/dl (0.60-1.40); POTASSIUM 3.7 mmol/L (3.5-5.1)
--- NOTE | 2016-11-15 11:40 | DIAGNOSTIC IMAGING REPORT ---
CHEST CTA for PULMONARY ARTERIES CT DOSE: 340.92 mGy.cm HISTORY: Atypical chest pain. TECHNIQUE: Multiaxial CT images of the chest were performed following the intravenous administration of contrast to evaluate the pulmonary arteries. Maximal intensity projection images were also obtained. COMPARISON STUDY: Chest 11/12/2016. FINDINGS: The thoracic aorta is normal in course and caliber with no evidence for dissection. Linear filling defects seen within the distal right main pulmonary artery and extending into the right lower lobar and segmental pulmonary arteries consistent with a pulmonary embolus. Small amount of mucoid material within the mid trachea. No pneumothorax. Peripheral consolidation within the base of the right lower lobe posteriorly. This could represent dependent change or pulmonary infarct. Mild emphysema. Limited views of the upper abdomen demonstrate a normal liver and spleen. Trace fluid along the undersurface of the spleen. Partially visualized 5.5 cm hypodense lesion which likely represents an exophytic renal cyst. Normal adrenal glands. No mediastinal or hilar lymphadenopathy. IMPRESSION: 1. Linear filling defects seen within the distal right main pulmonary artery and extending into the right lower lobar and subsegmental pulmonary arteries consistent with a pulmonary embolus. This is age indeterminate but favors a chronic embolus. 2. Peripheral consolidation at the base of the right lower lobe may be due to dependent change or pulmonary infarct. Electronically signed by: Micah De Guzman M.D. 11/15/2016 11:38 AM Dictated Date/Time: 11/15/2016 11:27 AM
[2016-11-15] MEDS: SODIUM CHLOR 0.45% + 20MEQ KCL 1,000 ML IV SCH (11:45)
--- NOTE | 2016-11-15 12:57 | Psychiatric Consultation ---
Consultation Identifying Data 76-year-old white male from [facility] who has a history of malignant glioma, depression, and multiple other medical problems and presented to the emergency room 3 days ago with increased confusion. He was admitted to the hospitalist service, and psychiatry was consulted for depression. Chief Complaint "I'm busy". History of Present Illness According to review of records, the patient presented to the emergency room after several months of confusion that had worsened over the week prior, and was admitted to the hospitalist service, where he is being treated for multiple medical problems. He is status post resection, chemotherapy, and radiation for a malignant glioma of the brain, has refused treatment since the fall, and a palliative care consult has now been placed. PT and OT have been involved due to ambulatory dysfunction. He has electrolyte imbalances, thought to be secondary to poor oral intake. He was found to have a DVT, and has had an MRI of the brain which showed post craniotomy changes on the left, left frontal encephalomalacia at the site of tumor resection, and excessive white matter changes thought likely due to previous radiation treatment. Neurology has been consulted and he had an EEG yesterday, which was read as indicative of focal neurological dysfunction over the central-mid temporal regions of the left hemisphere. He is on Keppra and steroids for cerebral edema. His voiced concerns to his primary attending about worsening depression. When the psychiatric liaison nurse attempted to meet with him today, he was fredi and dismissive, stating he did not want psychiatric intervention, and refused to complete the assessment. When I met with him shortly afterwards, he was irritable, refusing to take eye contact or to answer questions. He "I don't think so," when informed of the reason for the consult, saying he does not think he is depressed. He says he was not aware that his PCP had started him on an antidepressant, and did not wish to speak with me. He answered "I don't know" or "I don't care" to every question. He didn't me permission to talk with his , who entered the room at the end of our interview. His states that he has been very difficult for her to manage, as he is verbally abusive, at times yells at her or tells her to "get out," she does not know how to handle this. She does not feel that she has an option to leave, as there is no one else to care for him. She thinks that he has been more depressed recently, as he has not been smiling, seems more down, and is more irritable. She does not think that he cares about his health, and gives an example of him not wanting to pursue recommended treatments, even though lack of treatment completed to a poor outcome. She denies that he's made suicidal statements, but she worries that he does not really want to live anymore based on his behavior. Past Psychiatric History Current OP Treatment: no current treatment Prior OP Treatment: no prior treatment The patient denies any mental health history. His states that his PCP had been trying to get him to take a medication for depression for a long time, but he did not agree until about a month ago. She denies that he has had a history of suicide attempts, self-injurious behavior, or psychiatric hospitalizations. They do have multiple firearms in the home, which his says she has thought about getting rid of, as neither of them use them anymore, but doesn't think he would agree. Past Medical/Surgical History Problem List: (1) HTN (hypertension) (2) Peroneal DVT (deep venous thrombosis) (3) Brain tumor (4) Seizure (5) CAD (coronary artery disease) (6) Hyperlipidemia (7) Weakness (8) Hypernatremia (9) Altered mental status (10) Ambulatory dysfunction (11) COPD (chronic obstructive pulmonary disease) Allergies Allergies: Coded Allergies: No Known Allergies (Unverified , 05/25/14) Home Medications Scheduled Aspirin (Aspirin Ec), 81 MG PO DAILY Atorvastatin (Lipitor), 40 MG PO DAILY Citalopram Hydrobromide (Celexa), 20 MG PO DAILY Dexamethasone (Dexamethasone), 2 MG PO UD Folic Acid (Folic Acid), 1 MG PO QAM Levetiracetam (Keppra), 1,000 MG PO BID Lisinopril (Lisinopril), 5 MG PO DAILY Multivitamins (Daily Wes), 1 TAB PO QAM Oxybutynin Chloride (Ditropan Xl), 5 MG PO DAILY Thiamine HCl (Vitamin B-1), 100 MG PO QAM Scheduled PRN Polyethylene (Miralax), 17 GM PO DAILY PRN for constipation Saline ([place] Nasal [place]), 1 SPRAYS NA PRN PRN for NASAL DRYNESS Family History Heart disease Patient refused to answer. His does not know of any family history of mental illness. Alcohol Use Alcohol Use In Past 12 Months: No reports he has a history of heavy alcohol use, but stopped 1.5 years ago. Substance History denies other substance abuse. Personal History Children: None Additional Comments: Lives with in [place]. They have few supports per . Although his nephew lives in [place], they do not see him much as he is busy with work. They have a metal miner who will sometimes stay with the patient when his has to go out of town, and his says "Bill is okay with him, but anyone else he hates." Review of Systems Attempted to review 10 systems, but the patient refused to participate. Examination Vital Signs Vital Signs Past 12 Hours Date Time Temp Pulse Resp B/P Pulse Ox O2 Delivery O2 Flow Rate FiO2 11/15/16 11:51 36.4 53 18 182/82 91 Room Air 11/15/16 08:00 Room Air 11/15/16 07:53 36.7 51 18 170/83 91 Room Air 11/15/16 04:00 36.4 55 18 171/94 92 Room Air 11/15/16 04:00 Room Air Laboratory Results Last 24 Hours Test 11/14/16 16:22 11/14/16 16:50 11/15/16 07:35 Rapid Plasma Reagin NONREACTIVE Lyme Disease IgG Antibody NEG Lyme Disease IgM Antibody NEG White Blood Count 7.27 K/uL 6.40 K/uL Red Blood Count 3.81 M/uL 3.75 M/uL Hemoglobin 13.2 g/dL 12.9 g/dL Hematocrit 37.9 % 36.2 % Mean Corpuscular Volume 99.5 fL 96.5 fL Mean Corpuscular Hemoglobin 34.6 pg 34.4 pg Mean Corpuscular Hemoglobin Concent 34.8 g/dl 35.6 g/dl Platelet Count 129 K/uL 123 K/uL Mean Platelet Volume 9.5 fL 8.9 fL Neutrophils (%) (Auto) 85.4 % Lymphocytes (%) (Auto) 5.1 % Monocytes (%) (Auto) 8.0 % Eosinophils (%) (Auto) 0.4 % Basophils (%) (Auto) 0.1 % Neutrophils # (Auto) 6.21 K/uL Lymphocytes # (Auto) 0.37 K/uL Monocytes # (Auto) 0.58 K/uL Eosinophils # (Auto) 0.03 K/uL Basophils # (Auto) 0.01 K/uL RDW Standard Deviation 49.2 fL 47.3 fL RDW Coefficient of Variation 13.6 % 13.4 % Immature Granulocyte % (Auto) 1.0 % Immature Granulocyte # (Auto) 0.07 K/uL Sodium Level 146 mmol/L 144 mmol/L Potassium Level 3.7 mmol/L 3.7 mmol/L Chloride Level 110 mmol/L 109 mmol/L Carbon Dioxide Level 26 mmol/L 26 mmol/L Anion Gap 10.0 mmol/L 9.0 mmol/L Blood Urea Nitrogen 21 mg/dl 17 mg/dl Creatinine 1.00 mg/dl 0.66 mg/dl Est Creatinine Clear Calc Drug Dose 63.8 ml/min 96.7 ml/min Estimated GFR () 85.0 109.6 Estimated GFR (Non- 73.3 94.6 BUN/Creatinine Ratio 21.1 26.4 Random Glucose 104 mg/dl 79 mg/dl Calcium Level 8.2 mg/dl 8.5 mg/dl Mental Examination Appearance: other (wearing a hospital gown and seated in bed in no acute distress eating lunch.) Eye contact is: poor (refuses to make eye contact, instead staring at the TV throughout the interview.) Motor behavior is: no abnormal motor movements Speech: other (minimal) Affect: irritable Mood is: irritable ("I'm not depressed") Thought process: concrete (difficult to assess due to refusal to participate in the interview; gave only short answers) Suicidal thought are: denied Homicidal thoughts are: denied Hallucinations: denies auditory, denies visual Insight: impaired Judgement: impaired Impression / Recommendations Impression 76-year-old white male with multiple medical problems and depression for which his PCP recently started citalopram. He is admitted with worsening confusion in the context of stopping treatment for a malignant glioma of the brain, electrolyte disarray, and is on multiple medications. There does appear to be an element of depression, although it is difficult to tease out symptoms due to the patient's refusal to participate in interview. He has significant irritability, and is not willing to accept recommendations for therapy. His would benefit from increased supports, as she bears the brunt of his verbal abuse. Risk Factors Assessment Male: Yes : Yes /single/: No Access to guns: Yes Health problems: Yes Mental Health Diagnoses: Yes Substance use disorders: No Previous psychiatric stay: No Protective Factors Assessment : Yes Responsible for young children: No Employed: No Absence of risk factors above: No (the patient is at increased risk for suicide compared to the general population due to his age, sex, race, serious medical conditions, depression, poor compliance with treatment, and access to guns. He is not willing to accept treatment recommendations for depression, and is not endorsing suicidal thoughts, so is not committable for mental health treatment. I did discuss recommendations with his that the guns be removed from the home and secured prior to discharge, which she indicates willingness to do.) Recommendations (1) Depression -Patient is refusing to take antidepressant medication here, and told me he was not even aware that he was on an antidepressant. If he becomes more compliant, would recommend increasing the dose of his antidepressant. He may also benefit from therapy, but is refusing this, and his does not think it is likely he would ever agreed to treatment. Although he denies suicidality and his denies that he's made suicidal statements, she is concerned that he would rather than deal with his health issues. We discussed concerns with having firearms in the home, and my recommendation to remove all firearms from the home and secure them where he will not have access to them prior to discharge. She states she had already been considering this, and is willing to follow through on it. We also discussed resources available to her in the community, including use of her [facility] crisis line, the [facility], and encouraged her to seek out supports for herself. We will continue to follow, but the patient himself is refusing to interact or accept treatment recommendations.
[2016-11-15] MEDS ORDERED: CLONIDINE HCL 0.1 MG TAB PO PRN (14:15)
--- NOTE | 2016-11-15 17:01 | Neurology Progress Notes ---
Neurology Progress Note Date of Service Nov 15, 2016. Tricia Ahuja is a 76 year old male with PMH of Malignant Glioma s/p resection, chemo , radiation, CAD, HTN, HLD, seizures, COPD. His is in the room and he is lying flat in the bed with is eyes closed. His reports that over the past 2 months he has had a steady mental and physical decline. Over the past week it has been a steep decline with confusion and "can't find the words he needs to say." He uses a walker but over the past week he has had increased difficulty ambulating. he is right hemiplegia and had least 5 falls in the last week which she states is more of a slow collapse to the floor. She was unable to get him up so they slept on the floor all night. She states he is eating ok but very slowly but his fluid intake is very minimal. he stopped chemotherapy in the fall and was refusing to have MRIs until very recently. He was started about a month ago on Celexa by his PCP due to depression. He denies fevers, chills, cough, chest pain, SOB, nausea, vomiting, diarrhea, dysuria, LOC and head trauma. According to EPIC chart he had the following. 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 he is currently lying in bed and does not want to be bothered. he does state he was OOB with physical therapy today Objective Date Time Temp Pulse Resp B/P Pulse Ox O2 Delivery O2 Flow Rate FiO2 11/15/16 16:48 36.6 61 18 113/60 90 Room Air 11/15/16 14:42 60 111/69 11/15/16 12:00 Room Air 11/15/16 11:51 36.4 53 18 182/82 91 Room Air 11/15/16 08:00 Room Air 11/15/16 07:53 36.7 51 18 170/83 91 Room Air 11/15/16 04:00 36.4 55 18 171/94 92 Room Air 11/15/16 04:00 Room Air 11/15/16 00:07 36.6 60 18 117/75 91 Room Air 11/15/16 00:00 Room Air 11/14/16 20:00 92 Room Air 11/14/16 19:48 36.7 71 18 172/82 92 Room Air Last 24 Hours Test 11/15/16 07:35 White Blood Count 6.40 K/uL Red Blood Count 3.75 M/uL Hemoglobin 12.9 g/dL Hematocrit 36.2 % Mean Corpuscular Volume 96.5 fL Mean Corpuscular Hemoglobin 34.4 pg Mean Corpuscular Hemoglobin Concent 35.6 g/dl RDW Standard Deviation 47.3 fL RDW Coefficient of Variation 13.4 % Platelet Count 123 K/uL Mean Platelet Volume 8.9 fL Sodium Level 144 mmol/L Potassium Level 3.7 mmol/L Chloride Level 109 mmol/L Carbon Dioxide Level 26 mmol/L Anion Gap 9.0 mmol/L Blood Urea Nitrogen 17 mg/dl Creatinine 0.66 mg/dl Est Creatinine Clear Calc Drug Dose 96.7 ml/min Estimated GFR () 109.6 Estimated GFR (Non- 94.6 BUN/Creatinine Ratio 26.4 Random Glucose 79 mg/dl Calcium Level 8.5 mg/dl Imaging: CT Chest-. Linear filling defects seen within the distal right main pulmonary artery and extending into the right lower lobar and subsegmental pulmonary arteries consistent with a pulmonary embolus. This is age indeterminate but favors a chronic embolus. Peripheral consolidation at the base of the right lower lobe may be due to dependent change or pulmonary infarct. EEG- This EEG indicates evidence for focal neurologic dysfunction overlying the central-mid temporal regions of left hemisphere. An underlying structural lesion is likely present. There is no clear evidence for associated potentially epileptogenic activity but its absence does not exclude the potential diagnosis of a seizure disorder. Exam: Gen: alert with voice command lungs course breath sounds CV RRR moves all ext spontaneously but will not cooperate with exam Current Inpatient Medications Medications (Trade) Dose Ordered Sig/Adolfo Route Start Time Stop Time Status Last Admin Dose Admin Acetaminophen (Tylenol Tab) 650 mg Q4H PRN PO 11/12/16 19:00 12/12/16 18:59 Ondansetron HCl (Zofran Inj) 4 mg Q6H PRN IV 11/12/16 19:00 12/12/16 18:59 Aspirin (Ecotrin Tab) 81 mg DAILY PO 11/13/16 09:00 12/13/16 08:59 11/15/16 09:09 81 MG Atorvastatin Calcium (Lipitor Tab) 40 mg DAILY PO 11/13/16 09:00 12/13/16 08:59 11/14/16 09:15 40 MG Dexamethasone (Decadron Tab) 2 mg BID@0900,1500 PO 11/13/16 09:00 12/13/16 08:59 11/15/16 14:44 2 MG Folic Acid (Folvite Tab) 1 mg QAM PO 11/13/16 09:00 12/13/16 08:59 11/14/16 09:13 1 MG Levetiracetam (Keppra Tab) 1,000 mg BID PO 11/12/16 21:00 12/12/16 20:59 11/15/16 09:10 1,000 MG Lisinopril (Zestril Tab) 5 mg DAILY PO 11/13/16 09:00 12/13/16 08:59 11/15/16 09:10 5 MG Multivitamins (Multivitamin Tab) 1 tab QAM PO 11/13/16 09:00 12/13/16 08:59 11/14/16 09:13 1 TAB Oxybutynin Chloride (Ditropan-Xl Tab) 5 mg DAILY PO 11/13/16 09:00 12/13/16 08:59 11/15/16 09:08 5 MG Polyethylene (Miralax Powder Packet) 17 gm DAILY PRN PO 11/12/16 19:15 12/12/16 19:14 Sodium Chloride ([place] Nasal [place]) 1 sprays PRN PRN NA 11/12/16 19:15 12/12/16 19:14 Thiamine HCl (Vitamin B-1 Tab) 100 mg QAM PO 11/13/16 09:00 12/13/16 08:59 11/14/16 09:13 100 MG Ioversol (Optiray 320) 100 ml UD PRN IV 11/12/16 20:00 11/16/16 19:59 Enoxaparin Sodium 70 mg 70 mg Q12 SQ 11/12/16 21:00 12/12/16 20:59 11/15/16 09:14 70 MG Potassium Chloride/Sodium Chloride (/2 Nss + 20meq KCl 1000ml) 1,000 ml @ 75 mls/hr [id number] IV 11/14/16 21:15 12/14/16 20:29 11/15/16 11:45 75 MLS/HR Citalopram Hydrobromide (celeXA TAB) 20 mg QAM PO 11/16/16 09:00 12/16/16 08:59 Clonidine HCl (Catapres Tab) 0.1 mg Q6H PRN PO 11/15/16 14:15 12/15/16 14:14 Impression 76 year old s/p tumor resection in 2013 and combo of radiation and chemotherapy with new onset weakness and confusion Plan 1. oncology requesting MRI of brain for further evaluation of possible progression and or edema- stable 2. electrolytes corrected -IV fluids for hydration 3. psychiatry for further evaluation of depression- he is refusing psychiatry intervention and recommendations 4. steroids for cerebral edema 5. continue Keppra 1000 mg BID 6. EEG ordered for possible seizure -no seizure activity 7. LE Doppler with small vessel DVT 8. keppra level pending 9. b12, folate and TSH normal will order RPR and lyme all negative 10. CT chest with PE- pending evaluation of fall risk for anticoagulation I have seen and discussed above patient with Dr Shanna Perrin, neurology Seen and examined,. Pt with late effects (speech, motor) of radiation. No evidence of subclinical sz. Cont Keppra, antidepressants. We could consider Aricept and namenda. This can be addressed as an outpt. Will sign off. Please schedule follow-up with myself or GIANFRANCO Moise, as an outpatient. MOISES Perrin MD
--- NOTE | 2016-11-15 20:34 | Progress Note ---
Medicine Progress Note Date & Time of Visit: Nov 15, 2016 at 20:23. Subjective seen sitting up in bed, watching TV cooperative with my exam denies chest pain, dyspnea, palpitations denies leg pain no headache, dizziness, nausea oriented x 2 Objective Last 8 Hrs Date Time Temp Pulse Resp B/P Pulse Ox O2 Delivery O2 Flow Rate FiO2 11/15/16 16:48 36.6 61 18 113/60 90 Room Air 11/15/16 16:00 90 Room Air 11/15/16 14:42 60 111/69 Physical Exam: General- oriented x 2, not in distress, speaks in sentences with no effort Eyes- anicteric Neck- no JVD Lungs- clear breath sounds bilaterally Heart- normal rate, regular rhythm; no murmurs Abdomen- normal bowel sounds, soft, nontender Extremities- no pretibial edema, no calf tenderness; peripheral pulses intact Neuro- alert, oriented x 2; no facial asymmetry, mild RUE weakness Skin- warm & dry Laboratory Results: Last 24 Hours Test 11/15/16 07:35 White Blood Count 6.40 K/uL Red Blood Count 3.75 M/uL Hemoglobin 12.9 g/dL Hematocrit 36.2 % Mean Corpuscular Volume 96.5 fL Mean Corpuscular Hemoglobin 34.4 pg Mean Corpuscular Hemoglobin Concent 35.6 g/dl RDW Standard Deviation 47.3 fL RDW Coefficient of Variation 13.4 % Platelet Count 123 K/uL Mean Platelet Volume 8.9 fL Sodium Level 144 mmol/L Potassium Level 3.7 mmol/L Chloride Level 109 mmol/L Carbon Dioxide Level 26 mmol/L Anion Gap 9.0 mmol/L Blood Urea Nitrogen 17 mg/dl Creatinine 0.66 mg/dl Est Creatinine Clear Calc Drug Dose 96.7 ml/min Estimated GFR () 109.6 Estimated GFR (Non- 94.6 BUN/Creatinine Ratio 26.4 Random Glucose 79 mg/dl Calcium Level 8.5 mg/dl Assessment & Plan 76 year old male with PMHx of glioma, s/p chemo, radiation, resection ([id number] ) presents with worsening confusion and ambulatory dysfunction CONFUSION, Improving Possible Metabolic Encephalopathy from Hypernatremia Possible Cognitive Dysfunction from Radiation History of Oligodendroglioma, s/p Resection, Radiation, Chemo -CT with per radiologist read Diffuse low attenuation throughout the white matter suggests a history of previous brain radiation. Clinical correlation will be required. MRI Brain: 10/29/16- stable repeat MRI Brain: 11/13/16- 1. There is no hemorrhage or evidence of acute ischemia. 2. Again seen is post craniotomy change on the left with left frontal encephalomalacia at the site of previous tumor resection. There is no evidence of recurrent/residual enhancing tumor on the postcontrast images. 3. Extensive white matter change is likely related to previous radiation treatment. - No signs of Infection: Flu negative CXR clear UA no signs of UTI Blood Culture: negative - Na improving from 149 to 147 to 144 d/c 1/2 NSS monitor Na in AM - EEG noted RPR, Lyme Titers: negative - Neurology consulted Oncology consulted - appreciate the recommendations other work up: -B12 and folate : normal -check orthostatic VS -Serial Don: negative AMBULATORY DYSFUNCTION -? secondary to dehydration - gentle IVF hydration done - PT/OT eval HYPERNATREMIA -149, likely secondary to poor po intake -given 1/2 NS - Na improving to 144 monitor off fluids LEFT PERONEAL DVT, RIGHT PULMOMARY EMBOLI -Lovenox 1mg/kg -R/O PE check CTA: Linear filling defects seen within the distal right main pulmonary artery and extending into the right lower lobar and subsegmental pulmonary arteries consistent with a pulmonary embolus. This is age indeterminate but favors a chronic embolus. 2. Peripheral consolidation at the base of the right lower lobe may be due to dependent change or pulmonary infarct. -- as per , patient has been having multiple fall episodes at home not a good candidate for custodial anticoagulation, also discussed with Hem/ Onc, recommend IVC filter placement discussed with patient and , they are agreeable with the plan -- Dr. Elizalde consulted MALIGNANT GLIOMA OF BRAIN -S/p resection, chemo, radiation - Brain MRI: no signs of tumor recurrence -continue outpatient Decadron dose -Heme/onc consult - follows with Dr. Lock HISTORY OF SEIZURES - EEG noted -continue Keppra Keppra level : pending CAD - No complaints of chest pain - EKG nonischemic - Cardiac Markers negative Echo:pending - on Aspirin, Statin DEPRESSION - continue Celexa - per , showing some signs of worsening depression - Psych consult ordered, recommend to continue Citalopram for now HLD -continue Statin HTN -continue lisinopril DVT PROPHYLAXIS: Sq Lovenox BID CODE STATUS: LEVEL 5 DNR DISPO pending lives at home with may need Rehab/SNF Current Inpatient Medications: Current Inpatient Medications Medications (Trade) Dose Ordered Sig/Adolfo Route Start Time Stop Time Status Last Admin Dose Admin Acetaminophen (Tylenol Tab) 650 mg Q4H PRN PO 11/12/16 19:00 12/12/16 18:59 Ondansetron HCl (Zofran Inj) 4 mg Q6H PRN IV 11/12/16 19:00 12/12/16 18:59 Aspirin (Ecotrin Tab) 81 mg DAILY PO 11/13/16 09:00 12/13/16 08:59 11/15/16 09:09 81 MG Atorvastatin Calcium (Lipitor Tab) 40 mg DAILY PO 11/13/16 09:00 12/13/16 08:59 11/14/16 09:15 40 MG Dexamethasone (Decadron Tab) 2 mg BID@0900,1500 PO 11/13/16 09:00 12/13/16 08:59 11/15/16 14:44 2 MG Folic Acid (Folvite Tab) 1 mg QAM PO 11/13/16 09:00 12/13/16 08:59 11/14/16 09:13 1 MG Levetiracetam (Keppra Tab) 1,000 mg BID PO 11/12/16 21:00 12/12/16 20:59 11/15/16 09:10 1,000 MG Lisinopril (Zestril Tab) 5 mg DAILY PO 11/13/16 09:00 12/13/16 08:59 11/15/16 09:10 5 MG Multivitamins (Multivitamin Tab) 1 tab QAM PO 11/13/16 09:00 12/13/16 08:59 11/14/16 09:13 1 TAB Oxybutynin Chloride (Ditropan-Xl Tab) 5 mg DAILY PO 11/13/16 09:00 12/13/16 08:59 11/15/16 09:08 5 MG Polyethylene (Miralax Powder Packet) 17 gm DAILY PRN PO 11/12/16 19:15 12/12/16 19:14 Sodium Chloride ([place] Nasal [place]) 1 sprays PRN PRN NA 11/12/16 19:15 12/12/16 19:14 Thiamine HCl (Vitamin B-1 Tab) 100 mg QAM PO 11/13/16 09:00 12/13/16 08:59 11/14/16 09:13 100 MG Ioversol (Optiray 320) 100 ml UD PRN IV 11/12/16 20:00 11/16/16 19:59 Enoxaparin Sodium 70 mg 70 mg Q12 SQ 11/12/16 21:00 12/12/16 20:59 11/15/16 09:14 70 MG Potassium Chloride/Sodium Chloride (/2 Nss + 20meq KCl 1000ml) 1,000 ml @ 75 mls/hr [id number] IV 11/14/16 21:15 12/14/16 20:29 11/15/16 11:45 75 MLS/HR Citalopram Hydrobromide (celeXA TAB) 20 mg QAM PO 11/16/16 09:00 12/16/16 08:59 Clonidine HCl (Catapres Tab) 0.1 mg Q6H PRN PO 11/15/16 14:15 12/15/16 14:14
[2016-11-16] VITALS (11 sets, daily range): BP systolic 132–186; BP diastolic 76–96; PULSE 50–77; TEMP 36.3–36.7; O2SAT 90–94
[2016-11-16 07:46] LABS: BUN/CREATININE RATIO 22.7 (10-20); CALCIUM 8.4 mg/dl (8.5-10.1); CREATININE 0.66 mg/dl (0.60-1.40); POTASSIUM 3.5 mmol/L (3.5-5.1)
[2016-11-16] MEDS: CITALOPRAM 20 MG TAB PO SCH (08:24)
[2016-11-16] MEDS: MULTIVITAMIN TAB PO SCH (08:24)
[2016-11-16] MEDS: ASPIRIN 81 MG ECTAB PO SCH (08:24)
[2016-11-16] MEDS: DEXAMETHASONE 4 MG TAB PO SCH ×2 (08:26→15:47)
[2016-11-16] MEDS: OXYBUTYNIN CHLORIDE 5 MG TABCR PO SCH (08:26)
[2016-11-16] MEDS: LISINOPRIL 5 MG TAB PO SCH (08:26)
[2016-11-16] MEDS: THIAMINE HCL 100 MG TAB PO SCH (08:27)
[2016-11-16] MEDS: ATORVASTATIN 20 MG TAB PO SCH (08:27)
[2016-11-16] MEDS: ENOXAPARIN 80 MG/0.8 ML SYR SQ SCH ×2 (08:28→20:31)
[2016-11-16] MEDS: LEVETIRACETAM 500 MG TAB PO SCH ×2 (08:28→20:32)
[2016-11-16] MEDS ORDERED: CITALOPRAM 20 MG TAB PO SCH (09:00)
--- NOTE | 2016-11-16 09:39 | Surgery Consultation ---
Consultation Date of Service Nov 16, 2016. Chief Complaint Acute DVT with frequent falls History of Present Illness The patient is a 76 year old male who was found to have a left peroneal acute DVT. He also has chronic changes on CTA of previous PE. He needs to be anticoagulated but experiences frequent falls. Denies chest pain or SOB Vitals Vital Signs Past 12 Hours Date Time Temp Pulse Resp B/P Pulse Ox O2 Delivery O2 Flow Rate FiO2 11/16/16 07:06 36.6 55 18 179/78 94 Room Air 167/96 11/16/16 04:43 36.6 50 18 164/79 94 Room Air 11/16/16 04:00 Room Air 11/16/16 00:00 Room Air 11/15/16 23:57 36.4 61 18 163/86 93 Room Air Allergies Coded Allergies: No Known Allergies (Unverified , 05/25/14) Home Medications Scheduled Aspirin (Aspirin Ec), 81 MG PO DAILY Atorvastatin (Lipitor), 40 MG PO DAILY Citalopram Hydrobromide (Celexa), 20 MG PO DAILY Dexamethasone (Dexamethasone), 2 MG PO UD Folic Acid (Folic Acid), 1 MG PO QAM Levetiracetam (Keppra), 1,000 MG PO BID Lisinopril (Lisinopril), 5 MG PO DAILY Multivitamins (Daily Wes), 1 TAB PO QAM Oxybutynin Chloride (Ditropan Xl), 5 MG PO DAILY Thiamine HCl (Vitamin B-1), 100 MG PO QAM Scheduled PRN Polyethylene (Miralax), 17 GM PO DAILY PRN for constipation Saline (Clay Nasal [place]), 1 SPRAYS NA PRN PRN for NASAL DRYNESS Problem List Medical Problems: (1) Ambulatory dysfunction (2) Brain tumor (3) CAD (coronary artery disease) (4) COPD (chronic obstructive pulmonary disease) (5) Depression (6) HLD (hyperlipidemia) (7) HTN (hypertension) (8) Hyperlipidemia (9) Oligodendroglioma of brain (10) Peroneal DVT (deep venous thrombosis) (11) Seizure Surgical Problems: (1) H/O brain surgery (2) H/O hernia repair (3) History of tonsillectomy Surgical / Medical History Hx Cardiac Surgery: Yes (CARDIAC CATHETERIZATION (2007)) Hx Abdominal Surgery: Yes (HERNIA) Hx Cancer Surgery: Yes (BRAIN) Hx Thoracic Surgery: No Hx Orthopedic: Yes (ROTATOR CUFF SURGERY) Hx Urinary Tract Surgery: No Past Medical/Surgical History: Cancer (brain), COPD, Depression, Heart Disease , High Cholesterol, Hypertension, Seizure Disorder Family History Heart disease Social History Smoking Status: Unknown if Ever Smoked Hx Tobacco Use In Past Year?: No Hx Alcohol Use - Type & Amnt: No Hx Substance Use -Type & Amnt: No Review of Systems Constitutional: No chills, No diaphoresis, No fatigue, No fever, No malaise, No problem reported, No sweats, No weakness, No weight gain, No weight loss Respiratory: No PARKER, No PND, No cough, No cyanosis, No dyspnea, No hemoptysis, No orthopnea, No problem reported, No short of breath, No sputum production, No stridor, No wheezing Cardiovascular: No chest pain, No chest pressure, No chest tightness, No cyanosis, No diaphoresis, No edema, No intermittent claudication, No lightheadedness, No mumur, No orthopnea, No palpitations, No paroxysmal nocturnal dyspnea, No problem reported, No syncope Gastrointestinal: No abdominal pain, No anorexia, No appetite changes, No belching, No constipation, No diarrhea, No dysphagia, No flatulence, No food intolerance, No heartburn, No hematemesis, No hematochezia, No hemorrhoids, No indigestion, No nausea, No problem reported, No rectal bleeding, No stool changes, No vomiting Musculoskeletal: No back pain, No gout, No joint pain, No joint swelling, No muscle pain, No muscle stiffness, No muscle weakness, No neck pain, No problem reported Neurologic: + lethargy, + seizures Psychiatric: + depression Physical Exam Constitutional: General Apperance: heathly-appearing, well-nourished, well-developed Level of Distress: NAD Ambulation: limited ambulation Psychiatric: Mental Status: abnormal affect, lethargic Orientation: to place, to person, not oriented to time Neck: supple Lungs: Auscultation: breath sounds normal Cardiovascular: Heart Auscultation: RRR Peripheral Pulses: Carotid Pulse: normal on the left, normal on the right Radial Pulse: normal on the left, normal on the right Femoral Pulse: normal on the left, normal on the right Abdomen: Inspection & Palpation: soft, non-distended, no tenderness, guarding & rebound, no masses, no CVA tenderness Musculoskeletal: normal Extremities: Upper Right: no cyanosis, no edema, no varicosities, no palpable cord, no clubbing, no ulcers, no mottling Upper Left: no cyanosis, no edema, no palpable cord, no clubbing, no ulcers , no mottling Lower Right: no cyanosis, no edema, no varicosities, no palpable cord, no clubbing, no ulcers, no mottling Lower Left: no cyanosis, no edema, no varicosities, no palpable cord, no clubbing, no ulcers, no mottling Neurologic: Cranial Nerves: grossly intact Sensation: grossly intact Assessment and Plan Imp: Acute DVT Plan: In veiw of his frequent falls and need of senior care anticoagulation, would recommend insertion of IVC filter. I have discussed the risks options and benefits of the procedure with the patient and his . The patient and understand the risks options and benefits and agrees to the procedure.
[2016-11-16] MEDS ORDERED: CEFAZOLIN IV 1,000 MG in DEXTROSE 5% 50ML 50 ML IV SCH (12:00)
[2016-11-16] MEDS ORDERED: CEFAZOLIN 1000MG/55 ML D5W IV SCH (12:00)
--- NOTE | 2016-11-16 12:13 | Psychiatric Progress Notes ---
Psychiatric Progress Note Date of Service Nov 16, 2016. Notes ID: Patient reviewed with liaison nurse. Initial consult by Dr. Tee on 11/15 also reviewed; agreed to remove guns. CC: "what do you want?" HPI: seems a bit confused this am, taking excessive time to swallow pills, won' t make eye contact ROS: will not answer MSE: difficult to assess, denies SI or need for intervention, did not appear to be responding to internal stimuli. Imp: irritable mood with glioma, on Celexa for adjustment issues/nonspecific depression Plan: no acute indication of inpatient mental health referral, basically uncooperative with f/u assessment
[2016-11-16] MEDS ORDERED: MIDAZOLAM HCL 1 MG/ML 2ML VIAL ONE (13:07)
[2016-11-16] MEDS ORDERED: FENTANYL CITRATE INJ 50 MCG/1 ML 2 ML VIAL ONE (13:07)
[2016-11-16] MEDS ORDERED: LIDOCAINE HCL 1% 20 ML VIAL INJ ONE (13:49)
[2016-11-16] MEDS ORDERED: IODIXANOL (VISIPAQUE) 270 MG/ML 50ML XX ONE (13:55)
--- NOTE | 2016-11-16 13:55 | [facility] Post Operative Brief Note ---
Immediate Operative Summary Operative Date Nov 16, 2016. Pre-Operative Diagnosis Acute DVT, frequent falls Post-Operative Diagnosis Same Procedure(s) Performed Insertion of IVC filter, femoral approach Surgeon susana Director Patient Surgeon(s) none Estimated Blood Loss 3 Findings filter upright in infra renal IVC, no cava clot noted Specimens none Anesthesia Local Complication(s) None Disposition
--- NOTE | 2016-11-16 14:10 | DIAGNOSTIC IMAGING REPORT ---
DATE OF PROCEDURE: 11/16/2016 PREOPERATIVE DIAGNOSIS: Acute deep venous thrombosis with frequent falls. POSTOPERATIVE DIAGNOSIS: Same. PROCEDURE: Insertion of inferior vena cava filter, femoral approach. SURGEON: Dr. Elizalde. ANESTHETIC: Local. PROCEDURE INDICATIONS: The patient is a 76-year-old gentleman with acute deep venous thrombosis of the lower extremity. He is having frequent falls and is not going to be treated with oral anticoagulation due to that fact. Filter was therefore recommended. The patient and understood the risks, options and benefits and and agreed to go ahead with this procedure. He is confused and does not sign his own consents. DESCRIPTION OF PROCEDURE: The patient was taken to the angio suite and placed in supine position. After right groin was prepped and draped in a sterile manner, local anesthetic was administered. Percutaneous puncture was made of the right common femoral vein. A 0.035 wire was passed up into the inferior vena cava. The sheath of the puncture site was dilated and the filter sheath was inserted and placed in the distal inferior vena cava. Hand injection was performed which showed the level of the renal veins. There was no clot in the inferior vena cava. Filter was then inserted and deployed below the renal veins in an upright position without difficulty. The sheath was then pulled, pressure was applied. Adequate hemostasis was obtained. Sterile dressings were applied to the wound. The patient left the angio suite in good condition and tolerated the procedure well. JIM
--- NOTE | 2016-11-16 15:45 | Hematology/Oncology Prog Note ---
Hematology/Onc Progress Note Date of Service Nov 16, 2016. Diagnoses 1. 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 Left peroneal DVT 3. Chronic right PE on CTA from yesterday 4. Fall risk, high risk for AC Medications Medications Administered Medications (Trade) Dose Ordered Sig/Adolfo Route Start Time Stop Time Status Last Admin Dose Admin Sodium Chloride 250 ml @ 999 mls/hr Q16M STAT IV 11/12/16 15:13 11/12/16 15:28 DC 11/12/16 16:04 999 MLS/HR Sodium Chloride (Nss 1000ml) 1,000 ml @ 100 mls/hr Q10H STAT IV 11/12/16 15:13 11/13/16 01:12 DC 11/12/16 16:04 100 MLS/HR Dexamethasone Sodium Phosphate (Decadron Inj) 10 mg NOW STAT IV 11/12/16 17:49 11/12/16 17:50 DC 11/12/16 18:02 10 MG Aspirin 162 mg 162 mg NOW ONCE PO 11/12/16 20:52 11/12/16 20:53 DC 11/12/16 21:40 162 MG Sodium Chloride (1/2 Nss 1000ml) 1,000 ml @ 100 mls/hr Q10H IV 11/12/16 21:00 11/14/16 16:37 DC 11/14/16 13:39 100 MLS/HR Aspirin (Ecotrin Tab) 81 mg DAILY PO 11/13/16 09:00 12/13/16 08:59 11/16/16 08:24 81 MG Atorvastatin Calcium (Lipitor Tab) 40 mg DAILY PO 11/13/16 09:00 12/13/16 08:59 11/16/16 08:27 40 MG Citalopram Hydrobromide (celeXA TAB) 20 mg DAILY PO 11/13/16 09:00 11/15/16 12:38 DC 11/14/16 09:14 20 MG Dexamethasone (Decadron Tab) 2 mg BID@0900,1500 PO 11/13/16 09:00 12/13/16 08:59 11/16/16 08:26 2 MG Folic Acid (Folvite Tab) 1 mg QAM PO 11/13/16 09:00 12/13/16 08:59 11/16/16 08:24 1 MG Levetiracetam (Keppra Tab) 1,000 mg BID PO 11/12/16 21:00 12/12/16 20:59 11/16/16 08:28 1,000 MG Lisinopril (Zestril Tab) 5 mg DAILY PO 11/13/16 09:00 12/13/16 08:59 11/16/16 08:26 5 MG Multivitamins (Multivitamin Tab) 1 tab QAM PO 11/13/16 09:00 12/13/16 08:59 11/16/16 08:24 1 TAB Oxybutynin Chloride (Ditropan-Xl Tab) 5 mg DAILY PO 11/13/16 09:00 12/13/16 08:59 11/16/16 08:26 5 MG Thiamine HCl (Vitamin B-1 Tab) 100 mg QAM PO 11/13/16 09:00 12/13/16 08:59 11/16/16 08:27 100 MG Enoxaparin Sodium 70 mg 70 mg Q12 SQ 11/12/16 21:00 12/12/16 20:59 11/16/16 08:28 70 MG Potassium Chloride/Sodium Chloride (1/2 Nss + 20meq KCl 1000ml) 1,000 ml @ 75 mls/hr [id number] IV 11/14/16 21:15 11/15/16 20:25 DC 11/15/16 11:45 75 MLS/HR Citalopram Hydrobromide (celeXA TAB) 20 mg QAM PO 11/16/16 09:00 12/16/16 08:59 11/16/16 08:24 20 MG Lidocaine HCl (Xylocaine 1% Inj (Local)) 8 ml ONE ONCE INJ 11/16/16 13:49 11/16/16 13:58 DC 11/16/16 13:49 8 ML Iodixanol (Visipaque 50ml) 4,050 mg ONE ONCE XX 11/16/16 13:55 11/16/16 13:58 DC 11/16/16 13:55 4,050 MG Heparin Sodium/ Sodium Chloride (Heparin Sod/Ns 2 Units/Ml) 10 unit ONE ONCE OPR 11/16/16 13:55 11/16/16 13:58 DC 11/16/16 13:55 10 UNIT Subjective Patient seen and examined at bedside. He reports feeling overall well. He has not had headache or dizziness or altered mental status. He does not note cough or dyspnea. He reports a good appetite and has not had nausea, bowel issues, blood in the bowel, melena or hematuria. He denies any pain. He was not talkative during history or physical exam, which has been typical for this hospitalization. Review of Systems: Constitutional: No chills, No fever Respiratory: No cough, No shortness of breath Cardiovascular: No chest pain, No edema Abdomen: No GI bleeding, No constipation, No diarrhea, No pain Neurologic: + see HPI Heme: + see HPI Vital Signs Vital Signs Past 12 Hours Date Time Temp Pulse Resp B/P Pulse Ox O2 Delivery O2 Flow Rate FiO2 11/16/16 15:14 Room Air 11/16/16 15:00 76 18 139/79 90 Room Air 11/16/16 14:45 77 16 157/76 90 Room Air 11/16/16 14:30 71 16 186/89 91 Room Air 11/16/16 11:30 36.3 55 18 155/83 92 Room Air 11/16/16 11:30 Room Air 11/16/16 08:10 Room Air 11/16/16 07:06 36.6 55 18 179/78 94 Room Air 167/96 11/16/16 04:43 36.6 50 18 164/79 94 Room Air 11/16/16 04:00 Room Air Physical Exam Constitutional: General Apperance: well-nourished, well-developed Level of Distress: NAD ENMT: hearing grossly normal Lungs: Respiratory Effort: no dyspnea Auscuitation: breath sounds normal, no wheezing, no rhonchi Cardiovascular: Heart Auscultation: pertinent finding (frequent premature beat) Abdomen: Inspection & Palpation: soft, no tenderness, guarding & rebound Extremities: no edema (or calf tenderness) Laboratory 11/14/16 16:50 Red Blood Count 3.81, Mean Corpuscular Volume 99.5, Mean Corpuscular Hemoglobin 34.6, Mean Corpuscular Hemoglobin Concent 34.8, Mean Platelet Volume 9.5, Neutrophils (%) (Auto) 85.4, Lymphocytes (%) (Auto) 5.1, Monocytes (%) (Auto) 8.0, Eosinophils (%) (Auto) 0.4, Basophils (%) (Auto) 0.1, Neutrophils # (Auto) 6.21, Lymphocytes # (Auto) 0.37, Monocytes # (Auto) 0.58, Eosinophils # (Auto) 0.03, Basophils # (Auto) 0.01 11/15/16 07:35 11/14/16 07:00 11/14/16 16:50 11/15/16 07:35 11/16/16 06:48 Test 11/14/16 16:22 11/14/16 16:50 11/15/16 07:35 11/16/16 06:48 Rapid Plasma Reagin NONREACTIVE (NONREACT) Lyme Disease IgG Antibody NEG (NEG) Lyme Disease IgM Antibody NEG (NEG) White Blood Count 7.27 K/uL (4.8-10.8) Red Blood Count 3.81 M/uL (4.7-6.1) 3.75 M/uL (4.7-6.1) Hemoglobin 13.2 g/dL (14.0-18.0) Hematocrit 37.9 % (42-52) Mean Corpuscular Volume 99.5 fL (80-100) 96.5 fL (80-100) Mean Corpuscular Hemoglobin 34.6 pg (25-34) 34.4 pg (25-34) Mean Corpuscular Hemoglobin Concent 34.8 g/dl (32-36) 35.6 g/dl (32-36) Platelet Count 129 K/uL (130-400) Mean Platelet Volume 9.5 fL (7.4-10.4) 8.9 fL (7.4-10.4) Neutrophils (%) (Auto) 85.4 % Lymphocytes (%) (Auto) 5.1 % Monocytes (%) (Auto) 8.0 % Eosinophils (%) (Auto) 0.4 % Basophils (%) (Auto) 0.1 % Neutrophils # (Auto) 6.21 K/uL (1.4-6.5) Lymphocytes # (Auto) 0.37 K/uL (1.2-3.4) Monocytes # (Auto) 0.58 K/uL (0.11-0.59) Eosinophils # (Auto) 0.03 K/uL (0-0.5) Basophils # (Auto) 0.01 K/uL (0-0.2) RDW Standard Deviation 49.2 fL (36.4-46.3) 47.3 fL (36.4-46.3) RDW Coefficient of Variation 13.6 % (11.5-14.5) 13.4 % (11.5-14.5) Immature Granulocyte % (Auto) 1.0 % Immature Granulocyte # (Auto) 0.07 K/uL (0.00-0.02) Anion Gap 10.0 mmol/L (3-11) 9.0 mmol/L (3-11) 8.0 mmol/L (3-11) Est Creatinine Clear Calc Drug Dose 63.8 ml/min 96.7 ml/min 96.7 ml/min Estimated GFR () 85.0 109.6 109.6 Estimated GFR (Non- 73.3 94.6 94.6 BUN/Creatinine Ratio 21.1 (10-20) 26.4 (10-20) 22.7 (10-20) Calcium Level 8.2 mg/dl (8.5-10.1) 8.5 mg/dl (8.5-10.1) 8.4 mg/dl (8.5-10.1) Radiology Brain MRI from 11/13/16: 1. There is no hemorrhage or evidence of acute ischemia. 2. Again seen is post craniotomy change on the left with left frontal encephalomalacia at the site of previous tumor resection. There is no evidenceof recurrent/residual enhancing tumor on the postcontrast images. 3. Extensive white matter change is likely related to previous radiation treatment. CTA from 11/15/2016: Linear filling defect seen within the distal right main pulmonary artery and extending into the right lower lobe and segmental pulmonary arteries consistent with pulmonary embolus, age indeterminate, but likely chronic. Peripheral consolidation within the base of the right lower lobe posteriorly, could represent dependent change or pulmonary infarct. Mild emphysema. Assessment & Plan (1) Oligodendroglioma of brain Status: Chronic Assessment & Plan: Patient is s/p treatment with resection followed by chemoradiation with Temodar completed in 2014 as detailed above; he then resumed Temodar 09/13, but he stopped medication on his own accord per his preference in 05/2016. He then refused further treatment; he also refused follow up imaging until later last month. He had brain MRI last month that was negative for progressive disease. With his acute onset of confusion in past week, he had CT of head which possibly shows post-RT edema, but no recurrent lesions, and so he received 10 mg IV dexamethasone in the ER; he does remain on dexamethasone and Keppra as outpatient. Brain MRI from 11/13/16- negative for recurrent or progressive disease. Patient' s mentation back to baseline. (2) Peroneal DVT (deep venous thrombosis) Assessment & Plan: Patient has acute DVT of left peroneal vein, no above knee DVT in left leg; no DVT in RLE. Patient started on Lovenox 70 gm BID, but due to significant concern of patient being fall risk, vascular surgery was consulted for IVC placement, patient to have filter placed today by Dr. Elizalde. (3) Pulmonary embolus, right Assessment & Plan: Age indeterminate, likely chronic. See discussion in # 2. Discussed with Nika Muller PA-C and agree with above plan. Patient to follow up in the office upon discharge Would also recommend that he consider neuro-oncology follow up as well
--- NOTE | 2016-11-16 19:12 | Progress Note ---
Medicine Progress Note Date & Time of Visit: Nov 16, 2016 at 19:02. Subjective s/p IVC filter placement today states he feels fine overall denies chest pain, shortness of breath, leg pain no other symptoms Objective Last 8 Hrs Date Time Temp Pulse Resp B/P Pulse Ox O2 Delivery O2 Flow Rate FiO2 11/16/16 17:15 36.5 67 18 173/84 92 Room Air 11/16/16 16:15 36.4 61 18 152/87 93 Room Air 11/16/16 15:45 36.7 61 18 136/79 91 Room Air 11/16/16 15:15 36.6 70 18 132/79 90 Room Air 11/16/16 15:14 Room Air 11/16/16 15:00 76 18 139/79 90 Room Air 11/16/16 14:45 77 16 157/76 90 Room Air 11/16/16 14:30 71 16 186/89 91 Room Air 11/16/16 11:30 36.3 55 18 155/83 92 Room Air 11/16/16 11:30 Room Air Physical Exam: General- oriented x 2, not in distress, speaks in sentences with no effort Eyes- anicteric Neck- no JVD Lungs- clear breath sounds bilaterally, no rales Heart- normal rate, regular rhythm; no murmurs Abdomen- normal bowel sounds, soft, nontender Right Inguinal region: dressing in place, no bleeding, no hematoma/swelling/pain Extremities- no pretibial edema, no calf tenderness; peripheral pulses intact Neuro- alert, oriented x 2; no facial asymmetry, mild RUE weakness Skin- warm & dry Laboratory Results: Last 24 Hours Test 11/16/16 06:48 Sodium Level 142 mmol/L Potassium Level 3.5 mmol/L Chloride Level 108 mmol/L Carbon Dioxide Level 26 mmol/L Anion Gap 8.0 mmol/L Blood Urea Nitrogen 15 mg/dl Creatinine 0.66 mg/dl Est Creatinine Clear Calc Drug Dose 96.7 ml/min Estimated GFR () 109.6 Estimated GFR (Non- 94.6 BUN/Creatinine Ratio 22.7 Random Glucose 74 mg/dl Calcium Level 8.4 mg/dl Assessment & Plan 76 year old male with PMHx of glioma, s/p chemo, radiation, resection ([id number] ) presents with worsening confusion and ambulatory dysfunction CONFUSION, Improving Possible Metabolic Encephalopathy from Hypernatremia Possible Cognitive Dysfunction from Radiation History of Oligodendroglioma, s/p Resection, Radiation, Chemo -CT with per radiologist read Diffuse low attenuation throughout the white matter suggests a history of previous brain radiation. Clinical correlation will be required. MRI Brain: 10/29/16- stable repeat MRI Brain: 11/13/16- 1. There is no hemorrhage or evidence of acute ischemia. 2. Again seen is post craniotomy change on the left with left frontal encephalomalacia at the site of previous tumor resection. There is no evidence of recurrent/residual enhancing tumor on the postcontrast images. 3. Extensive white matter change is likely related to previous radiation treatment. - No signs of Infection: Flu negative CXR clear UA no signs of UTI Blood Culture: negative - Na improved from 149 to 147 to 144 given /2 NSS - EEG noted RPR, Lyme Titers: negative - Neurology consulted Oncology consulted - appreciate the recommendations other work up: -B12 and folate : normal -check orthostatic VS -Serial Don: negative AMBULATORY DYSFUNCTION -? secondary to dehydration - gentle IVF hydration done - PT/OT eval HYPERNATREMIA -149, likely secondary to poor po intake -given 1/2 NS - Na improved to 142 monitor off fluids LEFT PERONEAL DVT, RIGHT PULMOMARY EMBOLI -Lovenox 1mg/kg -R/O PE check CTA: Linear filling defects seen within the distal right main pulmonary artery and extending into the right lower lobar and subsegmental pulmonary arteries consistent with a pulmonary embolus. This is age indeterminate but favors a chronic embolus. 2. Peripheral consolidation at the base of the right lower lobe may be due to dependent change or pulmonary infarct. -- as per , patient has been having multiple fall episodes at home not a good candidate for shelter anticoagulation, also discussed with Hem/ Onc, recommend IVC filter placement -- s/p IVC filter placement today MALIGNANT GLIOMA OF BRAIN -S/p resection, chemo, radiation - Brain MRI: no signs of tumor recurrence -continue outpatient Decadron dose -Heme/onc consult - follows with Dr. Lock HISTORY OF SEIZURES - EEG noted -continue Keppra Keppra level : pending CAD - No complaints of chest pain - EKG nonischemic - Cardiac Markers negative Echo:pending - on Aspirin, Statin DEPRESSION - continue Celexa - per , showing some signs of worsening depression - Psych consult ordered, recommend to continue Citalopram for now HLD -continue Statin HTN - add amlodipine for elevated BP -continue lisinopril - monitor DVT PROPHYLAXIS: Sq Lovenox BID CODE STATUS: LEVEL 5 DNR DISPO pending lives at home with d/c to [facility], likely Saturday Current Inpatient Medications: Current Inpatient Medications Medications (Trade) Dose Ordered Sig/Adolfo Route Start Time Stop Time Status Last Admin Dose Admin Acetaminophen (Tylenol Tab) 650 mg Q4H PRN PO 11/12/16 19:00 12/12/16 18:59 Ondansetron HCl (Zofran Inj) 4 mg Q6H PRN IV 11/12/16 19:00 12/12/16 18:59 Aspirin (Ecotrin Tab) 81 mg DAILY PO 11/13/16 09:00 12/13/16 08:59 11/16/16 08:24 81 MG Atorvastatin Calcium (Lipitor Tab) 40 mg DAILY PO 11/13/16 09:00 12/13/16 08:59 11/16/16 08:27 40 MG Dexamethasone (Decadron Tab) 2 mg BID@0900,1500 PO 11/13/16 09:00 12/13/16 08:59 11/16/16 15:47 2 MG Folic Acid (Folvite Tab) 1 mg QAM PO 11/13/16 09:00 12/13/16 08:59 11/16/16 08:24 1 MG Levetiracetam (Keppra Tab) 1,000 mg BID PO 11/12/16 21:00 12/12/16 20:59 11/16/16 08:28 1,000 MG Lisinopril (Zestril Tab) 5 mg DAILY PO 11/13/16 09:00 12/13/16 08:59 11/16/16 08:26 5 MG Multivitamins (Multivitamin Tab) 1 tab QAM PO 11/13/16 09:00 12/13/16 08:59 11/16/16 08:24 1 TAB Oxybutynin Chloride (Ditropan-Xl Tab) 5 mg DAILY PO 11/13/16 09:00 12/13/16 08:59 11/16/16 08:26 5 MG Polyethylene (Miralax Powder Packet) 17 gm DAILY PRN PO 11/12/16 19:15 12/12/16 19:14 Sodium Chloride (Sledge Nasal [place]) 1 sprays PRN PRN NA 11/12/16 19:15 12/12/16 19:14 Thiamine HCl (Vitamin B-1 Tab) 100 mg QAM PO 11/13/16 09:00 12/13/16 08:59 11/16/16 08:27 100 MG Ioversol (Optiray 320) 100 ml UD PRN IV 11/12/16 20:00 11/16/16 19:59 Enoxaparin Sodium (Lovenox Inj) 70 mg Q12 SQ 11/12/16 21:00 12/12/16 20:59 11/16/16 08:28 70 MG Citalopram Hydrobromide (celeXA TAB) 20 mg QAM PO 11/16/16 09:00 12/16/16 08:59 11/16/16 08:24 20 MG Clonidine HCl (Catapres Tab) 0.1 mg Q6H PRN PO 11/15/16 14:15 12/15/16 14:14 Amlodipine Besylate (Norvasc Tab) 5 mg QAM PO 11/17/16 09:00 12/17/16 08:59 Amlodipine Besylate (Norvasc Tab) 5 mg 1930 ONCE PO 11/16/16 19:30 11/16/16 19:31
[2016-11-16] MEDS ORDERED: AMLODIPINE BESYLATE 5 MG TAB PO ONE (19:30)
[2016-11-17] VITALS (7 sets, daily range): BP systolic 123–185; BP diastolic 75–91; PULSE 54–88; TEMP 36.3–36.7; O2SAT 88–94
[2016-11-17 07:46] LABS: BASO % 0.3 %; BASO ABS # 0.02 K/uL (0-0.2); COMPLETE YES; EOS % 0.8 %; HEMATOCRIT 39.3 % (42-52); IG% 2.9 %; LYMPH % 12.4 %; LYMPH ABS # 0.82 K/uL (1.2-3.4); MEAN CORPUSCULAR HEMOGLOBIN 34.3 pg (25-34); MEAN CORPUSCULAR HGB CONC 35.4 g/dl (32-36); MEAN PLATELET VOLUME 9.1 fL (7.4-10.4); MONO % 8.4 %; NEUT % 75.2 %; PLATELET COUNT 135 K/uL (130-400); RED BLOOD COUNT 4.05 M/uL (4.7-6.1); WHITE BLOOD COUNT 6.63 K/uL (4.8-10.8)
[2016-11-17 08:20] LABS: BUN/CREATININE RATIO 22.6 (10-20); CALCIUM 8.6 mg/dl (8.5-10.1); CREATININE 0.81 mg/dl (0.60-1.40); POTASSIUM 3.7 mmol/L (3.5-5.1)
[2016-11-17] MEDS: MULTIVITAMIN TAB PO SCH (08:48)
[2016-11-17] MEDS: ASPIRIN 81 MG ECTAB PO SCH (08:48)
[2016-11-17] MEDS: ATORVASTATIN 20 MG TAB PO SCH (08:48)
[2016-11-17] MEDS: AMLODIPINE BESYLATE 5 MG TAB PO SCH (08:48)
[2016-11-17] MEDS: CITALOPRAM 20 MG TAB PO SCH (08:48)
[2016-11-17] MEDS: THIAMINE HCL 100 MG TAB PO SCH (08:49)
[2016-11-17] MEDS: DEXAMETHASONE 4 MG TAB PO SCH ×2 (08:49→14:44)
[2016-11-17] MEDS: OXYBUTYNIN CHLORIDE 5 MG TABCR PO SCH (08:49)
[2016-11-17] MEDS: LEVETIRACETAM 500 MG TAB PO SCH ×2 (08:50→20:14)
[2016-11-17] MEDS: LISINOPRIL 5 MG TAB PO SCH (08:51)
[2016-11-17] MEDS: ENOXAPARIN 80 MG/0.8 ML SYR SQ SCH ×2 (08:51→20:14)
--- NOTE | 2016-11-17 15:03 | Progress Note ---
Medicine Progress Note Date & Time of Visit: Nov 17, 2016 at 15:01. Subjective seen with at bedside states he feels ok overall watching tv no chest pain, dyspnea, groin pain irritable, uncooperative with catering staff member Objective Last 8 Hrs Date Time Temp Pulse Resp B/P Pulse Ox O2 Delivery O2 Flow Rate FiO2 11/17/16 12:29 36.7 88 18 139/88 88 Room Air 11/17/16 12:00 Room Air 11/17/16 08:00 36.4 88 20 185/85 94 Room Air 11/17/16 07:20 Room Air Physical Exam: General- oriented x 2, not in distress, speaks in sentences with no effort Eyes- anicteric Neck- no JVD Lungs- clear breath sounds bilaterally, no rales/wheezes Heart- normal rate, regular rhythm; no murmurs Abdomen- normal bowel sounds, soft, nontender Right Inguinal region: dressing in place, no bleeding, no hematoma/swelling/pain Extremities- no pretibial edema, no calf tenderness; peripheral pulses intact Neuro- alert, oriented x 2; no facial asymmetry, mild RUE weakness Skin- warm & dry Laboratory Results: Last 24 Hours Test 11/17/16 07:23 White Blood Count 6.63 K/uL Red Blood Count 4.05 M/uL Hemoglobin 13.9 g/dL Hematocrit 39.3 % Mean Corpuscular Volume 97.0 fL Mean Corpuscular Hemoglobin 34.3 pg Mean Corpuscular Hemoglobin Concent 35.4 g/dl Platelet Count 135 K/uL Mean Platelet Volume 9.1 fL Neutrophils (%) (Auto) 75.2 % Lymphocytes (%) (Auto) 12.4 % Monocytes (%) (Auto) 8.4 % Eosinophils (%) (Auto) 0.8 % Basophils (%) (Auto) 0.3 % Neutrophils # (Auto) 4.99 K/uL Lymphocytes # (Auto) 0.82 K/uL Monocytes # (Auto) 0.56 K/uL Eosinophils # (Auto) 0.05 K/uL Basophils # (Auto) 0.02 K/uL RDW Standard Deviation 47.8 fL RDW Coefficient of Variation 13.5 % Immature Granulocyte % (Auto) 2.9 % Immature Granulocyte # (Auto) 0.19 K/uL Nucleated RBC Absolute Count (auto) 0.02 K/uL Nucleated Red Blood Cells % 0.4 % Sodium Level 143 mmol/L Potassium Level 3.7 mmol/L Chloride Level 106 mmol/L Carbon Dioxide Level 28 mmol/L Anion Gap 9.0 mmol/L Blood Urea Nitrogen 18 mg/dl Creatinine 0.81 mg/dl Est Creatinine Clear Calc Drug Dose 78.8 ml/min Estimated GFR () 100.8 Estimated GFR (Non- 86.9 BUN/Creatinine Ratio 22.6 Random Glucose 67 mg/dl Calcium Level 8.6 mg/dl Assessment & Plan 76 year old male with PMHx of glioma, s/p chemo, radiation, resection ([id number] ) presents with worsening confusion and ambulatory dysfunction CONFUSION, Improving Possible Metabolic Encephalopathy from Hypernatremia Possible Cognitive Dysfunction from Radiation History of Oligodendroglioma, s/p Resection, Radiation, Chemo -CT with per radiologist read Diffuse low attenuation throughout the white matter suggests a history of previous brain radiation. Clinical correlation will be required. MRI Brain: 10/29/16- stable repeat MRI Brain: 11/13/16- 1. There is no hemorrhage or evidence of acute ischemia. 2. Again seen is post craniotomy change on the left with left frontal encephalomalacia at the site of previous tumor resection. There is no evidence of recurrent/residual enhancing tumor on the postcontrast images. 3. Extensive white matter change is likely related to previous radiation treatment. - No signs of Infection: Flu negative CXR clear UA no signs of UTI Blood Culture: negative - Na improved from 149 to 147 to 144 given /2 NSS - EEG noted RPR, Lyme Titers: negative - Neurology consulted Oncology consulted - appreciate the recommendations other work up: -B12 and folate : normal -check orthostatic VS -Serial Don: negative AMBULATORY DYSFUNCTION -? secondary to dehydration - gentle IVF hydration done - from Deconditioning, Steroid Myopathy? - PT/OT eval HYPERNATREMIA -149, likely secondary to poor po intake -given 1/2 NS - Na improved to 142 monitor off fluids LEFT PERONEAL DVT, RIGHT PULMOMARY EMBOLI -Lovenox 1mg/kg -R/O PE check CTA: Linear filling defects seen within the distal right main pulmonary artery and extending into the right lower lobar and subsegmental pulmonary arteries consistent with a pulmonary embolus. This is age indeterminate but favors a chronic embolus. 2. Peripheral consolidation at the base of the right lower lobe may be due to dependent change or pulmonary infarct. -- as per , patient has been having multiple fall episodes at home not a good candidate for fpc anticoagulation, also discussed with Hem/ Onc, recommend IVC filter placement -- s/p IVC filter placement 11/16/16 no acute issues MALIGNANT GLIOMA OF BRAIN -S/p resection, chemo, radiation - Brain MRI: no signs of tumor recurrence -continue outpatient Decadron dose -Heme/onc consult - follows with Dr. Lock HISTORY OF SEIZURES - EEG noted -continue Keppra Keppra level : pending CAD - No complaints of chest pain - EKG nonischemic - Cardiac Markers negative Echo:pending - on Aspirin, Statin DEPRESSION - continue Celexa - per , showing some signs of worsening depression - Psych consult ordered, recommend to continue Citalopram for now increased Citalopram to 30mg daily HLD -continue Statin HTN - add amlodipine for elevated BP BP improving -continue lisinopril - monitor DVT PROPHYLAXIS: Sq Lovenox BID CODE STATUS: LEVEL 5 DNR DISPO pending lives at home with d/c to [facility], likely Saturday Current Inpatient Medications: Current Inpatient Medications Medications (Trade) Dose Ordered Sig/Adolfo Route Start Time Stop Time Status Last Admin Dose Admin Acetaminophen (Tylenol Tab) 650 mg Q4H PRN PO 11/12/16 19:00 12/12/16 18:59 Ondansetron HCl (Zofran Inj) 4 mg Q6H PRN IV 11/12/16 19:00 12/12/16 18:59 Aspirin (Ecotrin Tab) 81 mg DAILY PO 11/13/16 09:00 12/13/16 08:59 11/17/16 08:48 81 MG Atorvastatin Calcium (Lipitor Tab) 40 mg DAILY PO 11/13/16 09:00 12/13/16 08:59 11/17/16 08:48 40 MG Dexamethasone (Decadron Tab) 2 mg BID@0900,1500 PO 11/13/16 09:00 12/13/16 08:59 11/17/16 14:44 2 MG Folic Acid (Folvite Tab) 1 mg QAM PO 11/13/16 09:00 12/13/16 08:59 11/17/16 08:50 1 MG Levetiracetam (Keppra Tab) 1,000 mg BID PO 11/12/16 21:00 12/12/16 20:59 11/17/16 08:50 1,000 MG Lisinopril (Zestril Tab) 5 mg DAILY PO 11/13/16 09:00 12/13/16 08:59 11/17/16 08:51 5 MG Multivitamins (Multivitamin Tab) 1 tab QAM PO 11/13/16 09:00 12/13/16 08:59 11/17/16 08:48 1 TAB Oxybutynin Chloride (Ditropan-Xl Tab) 5 mg DAILY PO 11/13/16 09:00 12/13/16 08:59 11/17/16 08:49 5 MG Polyethylene (Miralax Powder Packet) 17 gm DAILY PRN PO 11/12/16 19:15 12/12/16 19:14 Sodium Chloride ([place] Nasal [place]) 1 sprays PRN PRN NA 11/12/16 19:15 12/12/16 19:14 Thiamine HCl (Vitamin B-1 Tab) 100 mg QAM PO 11/13/16 09:00 12/13/16 08:59 11/17/16 08:49 100 MG Enoxaparin Sodium (Lovenox Inj) 70 mg Q12 SQ 11/12/16 21:00 12/12/16 20:59 11/17/16 08:51 70 MG Citalopram Hydrobromide (celeXA TAB) 20 mg QAM PO 11/16/16 09:00 12/16/16 08:59 11/17/16 08:48 20 MG Clonidine HCl (Catapres Tab) 0.1 mg Q6H PRN PO 11/15/16 14:15 12/15/16 14:14 Amlodipine Besylate (Norvasc Tab) 5 mg QAM PO 11/17/16 09:00 12/17/16 08:59 11/17/16 08:48 5 MG
[2016-11-18 04:31] VITALS: BP 126/84; PULSE 68; TEMP 36.5; O2SAT 93
[2016-11-18 07:54] VITALS: BP 145/85; PULSE 67; TEMP 36.7; O2SAT 92
[2016-11-18] MEDS: LEVETIRACETAM 500 MG TAB PO SCH ×2 (08:37→19:34)
[2016-11-18] MEDS: AMLODIPINE BESYLATE 5 MG TAB PO SCH (08:37)
[2016-11-18] MEDS: ASPIRIN 81 MG ECTAB PO SCH (08:37)
[2016-11-18] MEDS: ATORVASTATIN 20 MG TAB PO SCH (08:37)
[2016-11-18] MEDS: OXYBUTYNIN CHLORIDE 5 MG TABCR PO SCH (08:38)
[2016-11-18] MEDS: THIAMINE HCL 100 MG TAB PO SCH (08:38)
[2016-11-18] MEDS: MULTIVITAMIN TAB PO SCH (08:38)
[2016-11-18] MEDS: CITALOPRAM 20 MG TAB PO SCH (08:38)
[2016-11-18] MEDS: DEXAMETHASONE 4 MG TAB PO SCH ×2 (08:39→14:50)
[2016-11-18] MEDS: LISINOPRIL 5 MG TAB PO SCH (08:39)
[2016-11-18] MEDS: ENOXAPARIN 80 MG/0.8 ML SYR SQ SCH ×2 (08:40→19:33)
[2016-11-18 12:18] VITALS: BP 114/72; PULSE 86; TEMP 36.4; O2SAT 90
[2016-11-18 16:17] VITALS: BP 125/74; PULSE 83; TEMP 36.7; O2SAT 91
[2016-11-18 19:42] VITALS: BP 126/74; PULSE 88; TEMP 36.4; O2SAT 92
--- NOTE | 2016-11-18 19:54 | Progress Note ---
Medicine Progress Note Date & Time of Visit: Nov 18, 2016 at 19:53. Subjective sitting up in bed watching TV comfortable denies any symptoms Objective Last 8 Hrs Date Time Temp Pulse Resp B/P Pulse Ox O2 Delivery O2 Flow Rate FiO2 11/18/16 19:42 36.4 88 16 126/74 92 11/18/16 16:17 36.7 83 18 125/74 91 Room Air 11/18/16 15:40 Room Air 11/18/16 12:18 36.4 86 20 114/72 90 Room Air 11/18/16 12:00 Room Air Physical Exam: General- oriented x 2, not in distress, speaks in sentences with no effort Eyes- anicteric Lungs- clear breath sounds bilaterally, no rales/wheezes Heart- normal rate, regular rhythm; no murmurs Abdomen- normal bowel sounds, soft, nontender Extremities- no pretibial edema, no calf tenderness; peripheral pulses intact Neuro- alert, oriented x 2; no facial asymmetry, mild RUE weakness Skin- warm & dry Assessment & Plan 76 year old male with PMHx of glioma, s/p chemo, radiation, resection ([id number] ) presents with worsening confusion and ambulatory dysfunction CONFUSION, Improving Possible Metabolic Encephalopathy from Hypernatremia Possible Cognitive Dysfunction from Radiation History of Oligodendroglioma, s/p Resection, Radiation, Chemo -CT with per radiologist read Diffuse low attenuation throughout the white matter suggests a history of previous brain radiation. Clinical correlation will be required. MRI Brain: 10/29/16- stable repeat MRI Brain: 11/13/16- 1. There is no hemorrhage or evidence of acute ischemia. 2. Again seen is post craniotomy change on the left with left frontal encephalomalacia at the site of previous tumor resection. There is no evidence of recurrent/residual enhancing tumor on the postcontrast images. 3. Extensive white matter change is likely related to previous radiation treatment. - No signs of Infection: Flu negative CXR clear UA no signs of UTI Blood Culture: negative - Na improved from 149 to 147 to 144 given /2 NSS - EEG noted RPR, Lyme Titers: negative - Neurology consulted Oncology consulted - appreciate the recommendations - improved other work up: -B12 and folate : normal -check orthostatic VS -Serial Don: negative AMBULATORY DYSFUNCTION -? secondary to dehydration - gentle IVF hydration done - from Deconditioning, Steroid Myopathy? - PT/OT eval HYPERNATREMIA -149, likely secondary to poor po intake -given 1/ NS - Na improved to 142 monitor off fluids LEFT PERONEAL DVT, RIGHT PULMOMARY EMBOLI -Lovenox 1mg/kg -R/O PE check CTA: Linear filling defects seen within the distal right main pulmonary artery and extending into the right lower lobar and subsegmental pulmonary arteries consistent with a pulmonary embolus. This is age indeterminate but favors a chronic embolus. 2. Peripheral consolidation at the base of the right lower lobe may be due to dependent change or pulmonary infarct. 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 Lock HISTORY OF SEIZURES - EEG noted -continue Venkat Rob[place]o level : pending CAD - No complaints of chest pain - EKG nonischemic - Cardiac Markers negative Echo:pending - on Aspirin, Statin DEPRESSION - continue Celexa - per , showing some signs of worsening depression - Psych consult ordered, recommend to continue Citalopram for now increased Citalopram to 30mg daily HLD -continue Statin HTN - add amlodipine for elevated BP BP improving -continue lisinopril - monitor DVT PROPHYLAXIS: Sq Lovenox BID CODE STATUS: LEVEL 5 DNR DISPO pending lives at home with d/c to [facility], likely Saturday Current Inpatient Medications: Current Inpatient Medications Medications (Trade) Dose Ordered Sig/Adolfo Route Start Time Stop Time Status Last Admin Dose Admin Acetaminophen (Tylenol Tab) 650 mg Q4H PRN PO 11/12/16 19:00 12/12/16 18:59 Ondansetron HCl (Zofran Inj) 4 mg Q6H PRN IV 11/12/16 19:00 12/12/16 18:59 Aspirin (Ecotrin Tab) 81 mg DAILY PO 11/13/16 09:00 12/13/16 08:59 11/18/16 08:37 81 MG Atorvastatin Calcium (Lipitor Tab) 40 mg DAILY PO 11/13/16 09:00 12/13/16 08:59 11/18/16 08:37 40 MG Dexamethasone (Decadron Tab) 2 mg BID@0900,1500 PO 11/13/16 09:00 12/13/16 08:59 11/18/16 14:50 2 MG Folic Acid (Folvite Tab) 1 mg QAM PO 11/13/16 09:00 12/13/16 08:59 11/18/16 08:39 1 MG Levetiracetam (Keppra Tab) 1,000 mg BID PO 11/12/16 21:00 12/12/16 20:59 11/18/16 19:34 1,000 MG Lisinopril (Zestril Tab) 5 mg DAILY PO 11/13/16 09:00 12/13/16 08:59 11/18/16 08:39 5 MG Multivitamins (Multivitamin Tab) 1 tab QAM PO 11/13/16 09:00 12/13/16 08:59 11/18/16 08:38 1 TAB Oxybutynin Chloride (Ditropan-Xl Tab) 5 mg DAILY PO 11/13/16 09:00 12/13/16 08:59 11/18/16 08:38 5 MG Polyethylene (Miralax Powder Packet) 17 gm DAILY PRN PO 11/12/16 19:15 12/12/16 19:14 Sodium Chloride ([place] Nasal [place]) 1 sprays PRN PRN NA 11/12/16 19:15 12/12/16 19:14 Thiamine HCl (Vitamin B-1 Tab) 100 mg QAM PO 11/13/16 09:00 12/13/16 08:59 11/18/16 08:38 100 MG Enoxaparin Sodium (Lovenox Inj) 70 mg Q12 SQ 11/12/16 21:00 12/12/16 20:59 11/18/16 19:33 70 MG Clonidine HCl (Catapres Tab) 0.1 mg Q6H PRN PO 11/15/16 14:15 12/15/16 14:14 Amlodipine Besylate (Norvasc Tab) 5 mg QAM PO 11/17/16 09:00 12/17/16 08:59 11/18/16 08:37 5 MG Citalopram Hydrobromide (celeXA TAB) 30 mg QAM PO 11/18/16 09:00 12/18/16 08:59 11/18/16 08:38 30 MG
[2016-11-19] VITALS (7 sets, daily range): BP systolic 106–154; BP diastolic 71–84; PULSE 62–78; TEMP 36.4–36.5; O2SAT 92–94
[2016-11-19] MEDS: LEVETIRACETAM 500 MG TAB PO SCH ×2 (08:39→20:29)
[2016-11-19] MEDS: ATORVASTATIN 20 MG TAB PO SCH (08:40)
[2016-11-19] MEDS: THIAMINE HCL 100 MG TAB PO SCH (08:40)
[2016-11-19] MEDS: ASPIRIN 81 MG ECTAB PO SCH (08:42)
[2016-11-19] MEDS: CITALOPRAM 20 MG TAB PO SCH (08:42)
[2016-11-19] MEDS: OXYBUTYNIN CHLORIDE 5 MG TABCR PO SCH (08:42)
[2016-11-19] MEDS: AMLODIPINE BESYLATE 5 MG TAB PO SCH (08:42)
[2016-11-19] MEDS: LISINOPRIL 5 MG TAB PO SCH (08:44)
[2016-11-19] MEDS: ENOXAPARIN 80 MG/0.8 ML SYR SQ SCH (08:44)
[2016-11-19] MEDS: DEXAMETHASONE 4 MG TAB PO SCH ×2 (08:46→15:25)
[2016-11-19] MEDS: MULTIVITAMIN TAB PO SCH (08:46)
--- NOTE | 2016-11-19 09:28 | Psych Management Progress Note ---
Psychiatry Miscellaneous Date of Service: Nov 19, 2016. chart reviewed, Celexa increased for residual symptoms/to further trial. No apparent issues with tolerability and last Ach=[id number]. Patient has been resistant to pills at times, since taking recommend titrate to 40 mg (fewer pills, full trial), repeat EKG monitoring per primary team if concerns about QTc warning.
[2016-11-20 07:17] VITALS: BP 137/79; PULSE 60; TEMP 36.5; O2SAT 93
[2016-11-20] MEDS: OXYBUTYNIN CHLORIDE 5 MG TABCR PO SCH (08:34)
[2016-11-20] MEDS: AMLODIPINE BESYLATE 5 MG TAB PO SCH (08:34)
[2016-11-20] MEDS: DEXAMETHASONE 4 MG TAB PO SCH ×2 (08:35→15:08)
[2016-11-20] MEDS: ATORVASTATIN 20 MG TAB PO SCH (08:35)
[2016-11-20] MEDS: THIAMINE HCL 100 MG TAB PO SCH (08:35)
[2016-11-20] MEDS: LISINOPRIL 5 MG TAB PO SCH (08:36)
[2016-11-20] MEDS: MULTIVITAMIN TAB PO SCH (08:36)
[2016-11-20] MEDS: LEVETIRACETAM 500 MG TAB PO SCH (08:36)
[2016-11-20] MEDS ORDERED: CITALOPRAM 40 MG TAB PO SCH (09:00)
[2016-11-20 11:50] VITALS: BP 128/81; PULSE 76; TEMP 36.3; O2SAT 92
--- NOTE | 2016-11-20 12:59 | Progress Note ---
Medicine Progress Note Date & Time of Visit: Nov 19, 2016 at 12:46. Subjective patient seen sitting up in bed, comfortably watching tv Sally at bedside states he feels ok overall denies chest pain, dyspnea, groin pain, leg pain denies other symptoms somewhat irritable but cooperates with exam no other symptoms Objective Last 8 Hrs Date Time Temp Pulse Resp B/P Pulse Ox O2 Delivery O2 Flow Rate FiO2 11/19/16 07:58 Room Air 11/19/16 07:36 36.4 62 18 154/84 94 Room Air Physical Exam: General- oriented x 2, not in distress, speaks in sentences with no effort Eyes- anicteric Lungs- clear breath sounds bilaterally, no rales/wheezes Heart- normal rate, regular rhythm; no murmurs Abdomen- normal bowel sounds, soft, nontender Right Inguinal region: (+) surrounding hematoma around the IVC filter insertion site, no tenderness/swelling Extremities- no pretibial edema, no calf tenderness; peripheral pulses intact Neuro- alert, oriented x 2; no facial asymmetry, mild RUE weakness Skin- warm & dry Assessment & Plan 76 year old male with PMHx of glioma, s/p chemo, radiation, resection ([id number] ) presents with worsening confusion and ambulatory dysfunction CONFUSION, Improving Possible Metabolic Encephalopathy from Hypernatremia Possible Cognitive Dysfunction from Radiation History of Oligodendroglioma, s/p Resection, Radiation, Chemo -CT with per radiologist read Diffuse low attenuation throughout the white matter suggests a history of previous brain radiation. Clinical correlation will be required. MRI Brain: 10/29/16- stable repeat MRI Brain: 11/13/16- 1. There is no hemorrhage or evidence of acute ischemia. 2. Again seen is post craniotomy change on the left with left frontal encephalomalacia at the site of previous tumor resection. There is no evidence of recurrent/residual enhancing tumor on the postcontrast images. 3. Extensive white matter change is likely related to previous radiation treatment. - No signs of Infection: Flu negative CXR clear UA no signs of UTI Blood Culture: negative - Na improved from 149 to 147 to 144 given /2 NSS - EEG noted RPR, Lyme Titers: negative - Neurology consulted Oncology consulted - appreciate the recommendations - improved other work up: -B12 and folate : normal -Serial Don: negative AMBULATORY DYSFUNCTION -? secondary to dehydration - gentle IVF hydration done - from Deconditioning, Steroid Myopathy? - PT/OT eval HYPERNATREMIA -149, likely secondary to poor po intake -given 1/2 NS - Na improved to 142 monitor off fluids LEFT PERONEAL DVT, RIGHT PULMOMARY EMBOLI -Lovenox 1mg/kg -R/O PE check CTA: Linear filling defects seen within the distal right main pulmonary artery and extending into the right lower lobar and subsegmental pulmonary arteries consistent with a pulmonary embolus. This is age indeterminate but favors a chronic embolus. 2. Peripheral consolidation at the base of the right lower lobe may be due to dependent change or pulmonary infarct. -- as per , patient has been having multiple fall episodes at home not a good candidate for retirement anticoagulation, also discussed with Hem/ Onc, recommend IVC filter placement -- s/p IVC filter placement 11/16/16 (+) hematoma noted on the right groin region, STOP lovenox and Aspirin MALIGNANT GLIOMA OF BRAIN -S/p resection, chemo, radiation - Brain MRI: no signs of tumor recurrence -continue outpatient Decadron dose -Heme/onc consult - follows with Dr. Lock HISTORY OF SEIZURES - EEG noted -continue Keppra Keppra level : normal CAD - No complaints of chest pain - EKG nonischemic - Cardiac Markers negative - on Aspirin, Statin DEPRESSION - continue Celexa - per , showing some signs of worsening depression - Psych consult ordered increased Citalopram to 40mg daily monitor EKG for QTc as outpatient HLD -continue Statin HTN - added amlodipine for elevated BP BP improving -continue lisinopril - monitor DVT PROPHYLAXIS: Sq Lovenox BID CODE STATUS: LEVEL 5 DNR DISPO pending lives at home with d/c to [facility], likely Saturday Current Inpatient Medications: Current Inpatient Medications Medications (Trade) Dose Ordered Sig/Adolfo Route Start Time Stop Time Status Last Admin Dose Admin Acetaminophen (Tylenol Tab) 650 mg Q4H PRN PO 11/12/16 19:00 12/12/16 18:59 Ondansetron HCl (Zofran Inj) 4 mg Q6H PRN IV 11/12/16 19:00 12/12/16 18:59 Aspirin (Ecotrin Tab) 81 mg DAILY PO 11/13/16 09:00 12/13/16 08:59 11/19/16 08:42 81 MG Atorvastatin Calcium (Lipitor Tab) 40 mg DAILY PO 11/13/16 09:00 12/13/16 08:59 11/19/16 08:40 40 MG Dexamethasone (Decadron Tab) 2 mg BID@0900,1500 PO 11/13/16 09:00 12/13/16 08:59 11/19/16 08:46 2 MG Folic Acid (Folvite Tab) 1 mg QAM PO 11/13/16 09:00 12/13/16 08:59 11/19/16 08:40 1 MG Levetiracetam (Keppra Tab) 1,000 mg BID PO 11/12/16 21:00 12/12/16 20:59 11/19/16 08:39 1,000 MG Lisinopril (Zestril Tab) 5 mg DAILY PO 11/13/16 09:00 12/13/16 08:59 11/19/16 08:44 5 MG Multivitamins (Multivitamin Tab) 1 tab QAM PO 11/13/16 09:00 12/13/16 08:59 11/19/16 08:46 1 TAB Oxybutynin Chloride (Ditropan-Xl Tab) 5 mg DAILY PO 11/13/16 09:00 12/13/16 08:59 11/19/16 08:42 5 MG Polyethylene (Miralax Powder Packet) 17 gm DAILY PRN PO 11/12/16 19:15 12/12/16 19:14 Sodium Chloride ([place] Nasal [place]) 1 sprays PRN PRN NA 11/12/16 19:15 12/12/16 19:14 Thiamine HCl (Vitamin B-1 Tab) 100 mg QAM PO 11/13/16 09:00 12/13/16 08:59 11/19/16 08:40 100 MG Clonidine HCl (Catapres Tab) 0.1 mg Q6H PRN PO 11/15/16 14:15 12/15/16 14:14 Amlodipine Besylate (Norvasc Tab) 5 mg QAM PO 11/17/16 09:00 12/17/16 08:59 11/19/16 08:42 5 MG Citalopram Hydrobromide (celeXA TAB) 40 mg QAM PO 11/20/16 09:00 12/20/16 08:59
--- NOTE | 2016-11-20 13:27 | Progress Note ---
Medicine Progress Note Date & Time of Visit: Nov 20, 2016 at 13:09. Subjective patient seen sitting up in bed alert, cooperative states he feels "excellent" denies chest pain, dyspnea no abdominal pain, groin pain denies any other symptoms states he is ready and would like to be discharged today Objective Last 8 Hrs Date Time Temp Pulse Resp B/P Pulse Ox O2 Delivery O2 Flow Rate FiO2 11/20/16 11:50 36.3 76 18 128/81 92 Room Air 11/20/16 07:58 Room Air 11/20/16 07:17 36.5 60 18 137/79 93 Room Air Physical Exam: General- oriented x 2, not in distress, speaks in sentences with no effort Eyes- anicteric Lungs- clear breath sounds bilaterally, no rales/wheezes Heart- normal rate, regular rhythm; no murmurs Abdomen- normal bowel sounds, soft, nontender Right Inguinal region: (+) hematoma areas around the IVC filter insertion site - specifically: on the abdominal skin fold, upper thigh and right testicle, no tenderness/swelling Extremities- no pretibial edema, no calf tenderness; peripheral pulses intact Neuro- alert, oriented x 2; no facial asymmetry, mild RUE weakness Skin- warm & dry Assessment & Plan 76 year old male with PMHx of glioma, s/p chemo, radiation, resection ([id number] ) presents with worsening confusion and ambulatory dysfunction CONFUSION, Improved Possible Metabolic Encephalopathy from Hypernatremia 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 Clinical correlation will be required. MRI Brain: 10/29/16- stable repeat MRI Brain: 11/13/16- 1. There is no hemorrhage or evidence of acute ischemia. 2. Again seen is post craniotomy change on the left with left frontal encephalomalacia at the site of previous tumor resection. There is no evidence of recurrent/residual enhancing tumor on the postcontrast images. 3. Extensive white matter change is likely related to previous radiation treatment. EEG noted: evidence for focal neurologic dysfunction overlying the central-mid temporal regions of left hemisphere. An underlying structural lesion is likely present. There is no clear evidence for associated potentially epileptogenic activity but its absence does not exclude the potential diagnosis of a seizure disorder. - No signs of Infection: Flu negative CXR clear UA no signs of UTI Blood Culture: negative RPR, Lyme Titers: negative B12 and folate : normal - Neurologist Dr. Gastelum consulted: likely late cognitive effects of radiation, subclinical seizure not likely, may consider Aricept as outpatient, ff up with Dr Gastelum in 1-[address] Lock consulted: recommend to continue usual PO steroids, ff up with Dr. Lock in 1-2 weeks, also with Neuro-Oncology - mental status back to baseline for discharge today to [facility] AMBULATORY DYSFUNCTION - possibly secondary to Dehydration, Deconditioning, Steroid Myopathy? - continue PT/OT in [facility] HYPERNATREMIA -149, likely secondary to poor po intake -given 1/2 NS - Na improved to 143 - repeat Na level in 2-3 days please monitor fluid intake LEFT PERONEAL DVT, RIGHT PULMOMARY EMBOLI -CT Angio: Linear filling defects seen within the distal right main pulmonary artery and extending into the right lower lobar and subsegmental pulmonary arteries consistent with a pulmonary embolus. This is age indeterminate but favors a chronic embolus. 2. Peripheral consolidation at the base of the right lower lobe may be due to dependent change or pulmonary infarct. -- as per , patient has been having multiple fall episodes at home not a good candidate for senior living anticoagulation, also discussed with Hem/ Onc, recommend IVC filter placement -- s/p IVC filter placement 11/16/[address] Elizalde RIGHT GROIN HEMATOMA (+) hematoma noted on the right groin region, STOP lovenox and Aspirin monitor Right groin hematoma daily MALIGNANT GLIOMA OF BRAIN -S/p resection, chemo, radiation - Brain MRI: no signs of tumor recurrence -continue outpatient Decadron dose - follow up with Oncologist Dr. Lock in 1-2 weeks HISTORY OF SEIZURES - EEG noted -continue Keppra Keppra level : normal CAD - No complaints of chest pain - EKG nonischemic - Cardiac Markers negative - HOLD Aspirin until right groin hematoma improves DEPRESSION - per , showing some signs of worsening depression - Psych consulted- Dr. Polanco increased Citalopram to 40mg daily monitor EKG for QTc as outpatient HLD -continue Statin HTN - added amlodipine for elevated BP BP improved - continue lisinopril - monitor BP DVT PROPHYLAXIS: Sq Lovenox BID given CODE STATUS: LEVEL 5 DNR DISPO d/c to [facility] today ff up with Primary Care Physician Dr. Gay on 11/22/16 at 1:30pm. ff up with Vascular Surgeon Dr Elizalde in 1 week. ff up with Neurologist Dr. Perrin in 1-2 weeks ff up with Oncologist Dr. Lock in 1-2 weeks Current Inpatient Medications: Current Inpatient Medications Medications (Trade) Dose Ordered Sig/Adolfo Route Start Time Stop Time Status Last Admin Dose Admin Acetaminophen (Tylenol Tab) 650 mg Q4H PRN PO 11/12/16 19:00 12/12/16 18:59 Ondansetron HCl (Zofran Inj) 4 mg Q6H PRN IV 11/12/16 19:00 12/12/16 18:59 Atorvastatin Calcium (Lipitor Tab) 40 mg DAILY PO 11/13/16 09:00 12/13/16 08:59 11/20/16 08:35 40 MG Dexamethasone (Decadron Tab) 2 mg BID@0900,1500 PO 11/13/16 09:00 12/13/16 08:59 11/20/16 08:35 2 MG Folic Acid (Folvite Tab) 1 mg QAM PO 11/13/16 09:00 12/13/16 08:59 11/20/16 08:36 1 MG Levetiracetam (Keppra Tab) 1,000 mg BID PO 11/12/16 21:00 12/12/16 20:59 11/20/16 08:36 1,000 MG Lisinopril (Zestril Tab) 5 mg DAILY PO 11/13/16 09:00 12/13/16 08:59 11/20/16 08:36 5 MG Multivitamins (Multivitamin Tab) 1 tab QAM PO 11/13/16 09:00 12/13/16 08:59 11/20/16 08:36 1 TAB Oxybutynin Chloride (Ditropan-Xl Tab) 5 mg DAILY PO 11/13/16 09:00 12/13/16 08:59 11/20/16 08:34 5 MG Polyethylene (Miralax Powder Packet) 17 gm DAILY PRN PO 11/12/16 19:15 12/12/16 19:14 Sodium Chloride (Vigo Nasal Morrison) 1 sprays PRN PRN NA 11/12/16 19:15 12/12/16 19:14 Thiamine HCl (Vitamin B-1 Tab) 100 mg QAM PO 11/13/16 09:00 12/13/16 08:59 11/20/16 08:35 100 MG Clonidine HCl (Catapres Tab) 0.1 mg Q6H PRN PO 11/15/16 14:15 12/15/16 14:14 Amlodipine Besylate (Norvasc Tab) 5 mg QAM PO 11/17/16 09:00 12/17/16 08:59 11/20/16 08:34 5 MG Citalopram Hydrobromide (celeXA TAB) 40 mg QAM PO 11/20/16 09:00 12/20/16 08:59 11/20/16 08:36 40 MG
[2016-11-20] MEDS ORDERED: NRV5 PO (13:28)
[2016-11-20] MEDS ORDERED: CLX40 PO (13:28)
--- NOTE | 2016-11-20 13:35 | Discharge Instructions ---
Discharge Instructions Admission Reason for Admission: Altered Mental Status, Ambulatory Dysfunction Discharge Discharge Diagnosis / Problem: ALTERED MENTAL STATUS, FREQUENT FALLS Discharge Goals Goal(s): Diagnostic testing, Therapeutic intervention Activity Recommendations Activity Level: Assistance Required Therapies: Physical Therapy, Occupational Therapy FALL PRECAUTIONS PLEASE . Additional Information Patient informed of condition: Yes Advance Directives: No (UNKNOWN) DNR: Yes Level of Care: Skilled Communicable Disease: No Prognosis: Stable Instructions / Follow-Up Instructions / Follow-Up PLEASE REPEAT SODIUM LEVEL AND HG IN 2-3 DAYS (RE: HYPERNATREMIA, HEMATOMA). ENSURE DAILY ADEQUATE FLUID INTAKE. MONITOR RIGHT GROIN, ABDOMINAL SKIN FOLD, TESTICULAR, SMALL AREAS OF HEMATOMA. NO ASPIRIN AND OTHER BLOOD THINNERS UNTIL HEMATOMA RESOLVES. FOLLOW UP WITH DR. MATTHEWS (PCP) ON Saturday11/22/16 AT 1:30 PM. FOLLOW UP WITH NEUROLOGIST DR. COLLIER, ONCOLOGIST DR. HOANG, VASCULAR SURGEON DR. BOWLING IN 1-2 WEEKS. PLEASE REFER TO ACCOMPANYING DISCHARGE SUMMARY FOR FURTHER DETAILS. Current Hospital Diet Patient's current hospital diet: AHA Diet (Heart Healthy) Discharge Diet Recommended Diet: AHA Diet (Heart Healthy) Procedures Procedures Performed: 11/16/16 Insertion of IVC filter, femoral approach by Dr. Bowling Pending Studies Studies pending at discharge: yes List of pending studies: repeat Sodium and Hg level in 2-3 days Physician Orders On Transfer Special Precautions: PLEASE REPEAT SODIUM LEVEL AND HG IN 2-3 DAYS (RE: HYPERNATREMIA, HEMATOMA). ENSURE DAILY ADEQUATE FLUID INTAKE. MONITOR RIGHT GROIN, ABDOMINAL SKIN FOLD, TESTICULAR, SMALL AREAS OF HEMATOMA. NO ASPIRIN AND OTHER BLOOD THINNERS UNTIL HEMATOMA RESOLVES. FOLLOW UP WITH DR. MATTHEWS (PCP) ON Saturday11/22/16 AT 1:30 PM. FOLLOW UP WITH NEUROLOGIST DR. COLLIER, ONCOLOGIST DR. HOANG, VASCULAR SURGEON DR. BOWLING IN 1-2 WEEKS. PLEASE REFER TO ACCOMPANYING DISCHARGE SUMMARY FOR FURTHER DETAILS. Vital Signs: BP daily Laboratory Results Lipid Panel Test 11/13/16 03:22 Range/Units Triglycerides Level 53 0-150 mg/dl Cholesterol Level 123 0-200 mg/dl HDL Cholesterol 65 mg/dl Cholesterol/HDL Ratio 1.9 LDL Cholesterol, Calculated 47 mg/dl Medical Emergencies . Who to Call and When: Medical Emergencies: If at any time you feel your situation is an emergency, please call 911 immediately. . Non-Emergent Contact Non-Emergency issues call your: Primary Care Provider Call Non-Emergent contact if: you have a fever, wound has increased drainage, wound has increased redness, wound has increased pain, you have any medication questions . Past History Medical & Surgical History: (1) Peroneal DVT (deep venous thrombosis) (2) Pulmonary embolus, right (3) HTN (hypertension) (4) Brain tumor (5) CAD (coronary artery disease) (6) Seizure (7) Hyperlipidemia (8) Oligodendroglioma of brain (9) Weakness (10) Dehydration (11) Altered mental status (12) Hypernatremia (13) Ambulatory dysfunction (14) COPD (chronic obstructive pulmonary disease) (15) HLD (hyperlipidemia) (16) Depression (17) H/O hernia repair (18) History of tonsillectomy (19) H/O brain surgery . "Provider Documentation" section prepared by Jonathan Valverde. Core Measure Problem Core Measures: VTE VTE Core Measures Date of VTE Diagnosis: Nov 12, 2016 Time of VTE Diagnosis: 18:32 Reason no anticoag overlap I/P: Contraindicated Reason no anticoag overlap @DC: Contraindicated
--- NOTE | 2016-11-20 13:55 | Discharge Summary ---
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 Procedures: 11/16/16: Insertion of IVC filter, femoral approach by Dr. Bowling Consultations: Neurologist Dr. Perrin, Oncologist Dr. Lock, Vascular Surgeon Dr. Bowling Pending Studies/Follow-Up: PLEASE REPEAT SODIUM LEVEL AND HG IN 2-3 DAYS (RE: HYPERNATREMIA, HEMATOMA). ENSURE DAILY ADEQUATE FLUID INTAKE. MONITOR RIGHT GROIN, ABDOMINAL SKIN FOLD, TESTICULAR, SMALL AREAS OF HEMATOMA. NO ASPIRIN AND OTHER BLOOD THINNERS UNTIL HEMATOMA RESOLVES. FOLLOW UP WITH DR. GAY (PCP) ON Saturday11/22/16 AT 1:30 PM. FOLLOW UP WITH NEUROLOGIST DR. PERRIN, ONCOLOGIST DR. LOCK, VASCULAR SURGEON DR. BOWLING IN 1-2 WEEKS. PLEASE REFER TO HOSPITAL COURSE BELOW FOR FURTHER DETAILS. Medication Reconciliation New Medications: Amlodipine Besylate (Amlodipine Besylate) 5 Mg Tab 5 MG PO QAM for 30 Days, #30 TAB 2 Refills Citalopram (Citalopram Hydrobromide) 40 Mg Tab 40 MG PO QAM for 30 Days, #30 TAB Continued Medications: Atorvastatin (Lipitor) 40 Mg Tab 40 MG PO DAILY, TAB Dexamethasone (Dexamethasone) 4 Mg Tab 2 MG PO UD TAKE 1/2 TABLET (2MG) BY MOUTH TWICE DAILY UPON AWAKENING AND 6 HOURS LATER. Folic Acid (Folic Acid) 1 Mg Tab 1 MG PO QAM for 30 Days, TAB Levetiracetam (Keppra) 1,000 Mg Tab 1000 MG PO BID, TAB Lisinopril (Lisinopril) 5 Mg Tab 5 MG PO DAILY Multivitamins (Daily Wes) 1 Tab Tab 1 TAB PO QAM for 30 Days, TAB Oxybutynin Chloride (Ditropan Xl) 5 Mg Tab 5 MG PO DAILY for 90 Days, #90 TAB 3 Refills Polyethylene (Miralax) 17 Gm Pow 17 GM PO DAILY PRN for constipation for 30 Days Saline (Jenkins Nasal Homer) 0.65 % Spr 1 SPRAYS NA PRN PRN for NASAL DRYNESS, #1 BTL Thiamine HCl (Vitamin B-1) 100 Mg Tab 100 MG PO QAM for 30 Days, TAB Discontinued Medications: Aspirin (Aspirin Ec) 81 Mg Tab 81 MG PO DAILY Citalopram Hydrobromide (Celexa) 20 Mg Tab 20 MG PO DAILY, TAB Admission Information HPI (per Admitting provider): Patient seen and examined. 76 year old male with PMHx of Malignant Glioma s/p resection, chemo, radiation, CAD, HTN, HLD, seizures, COPD and other problems listed below present to the ED with increased confusion x 1 week. History is taken primarily from patient's who states that patient has been confused for several months. Over the last week he seems to have become more confused and "can't find the words he needs to say." He has also become increasingly weak. Patient usually uses a walker but over the past week he has had increased difficulty ambulating and can not not ambulate. He has a chronic right hemiplegia. He has had at least 5 falls in the last week. His has been unable to help him up and he has had to sleep on the floor until others could help him. He has had increased urinary incontinence and very poor po intake. Patient chose to stop chemotherapy in the fall. He has refused MRIs until very recently. He was seen by his PCP last month who started him on Celexa. He has not had any other medication changes. Patient and his denies fevers, chills , cough, chest pain, SOB, nausea, vomiting, diarrhea, dysuria, LOC and head trauma. Patient had an MRI of brain at the end of 10/16 which was unchanged from previous. Patient occasionally becomes tearful during exam especially when he doesn't know the answer to things. In the ED sodium is 149, CT head shows possible cerebral edema secondary to radiation. He received IVFs and Decadron he is resting comfortably and will be admitted for further workup and treatment. Physical Exam (per Admitting): General Appearance: + pertinent finding (WD/WN 76 year old male lying in bed in NAD with at bedside ) Head: normocephalic, atraumatic Eyes: PERRL, EOMI, sclerae normal ENT: hearing grossly normal, pharynx normal Neck: supple, no JVD Respiratory/Chest: chest non-tender, lungs clear, normal breath sounds, no respiratory distress, no accessory muscle use Cardiovascular: regular rate, rhythm, no edema, no gallop, no JVD, no murmur , normal peripheral pulses Abdomen/GI: normal bowel sounds, non tender, soft Back: normal inspection, no muscle spasm Extremities/Musculoskelatal: normal capillary refill, no pedal edema, + calf tenderness (right calf ) Neurologic/Psych: + pertinent finding (Alert, oriented to person and place not time, occasionally tearful throughout exam, chronic RUE weakness, otherwise no focal deficits ) Skin: normal color, warm/dry, no rash Lymphatic: no adenopathy Hospital Course 76 year old male with PMHx of glioma, s/p chemo, radiation, resection ([id number] ) presents with worsening confusion and ambulatory dysfunction CONFUSION, Improved Possible Metabolic Encephalopathy from Hypernatremia 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 Clinical correlation will be required. MRI Brain: 10/29/16- stable repeat MRI Brain: 11/13/16- 1. There is no hemorrhage or evidence of acute ischemia. 2. Again seen is post craniotomy change on the left with left frontal encephalomalacia at the site of previous tumor resection. There is no evidence of recurrent/residual enhancing tumor on the postcontrast images. 3. Extensive white matter change is likely related to previous radiation treatment. EEG noted: evidence for focal neurologic dysfunction overlying the central-mid temporal regions of left hemisphere. An underlying structural lesion is likely present. There is no clear evidence for associated potentially epileptogenic activity but its absence does not exclude the potential diagnosis of a seizure disorder. - No signs of Infection: Flu negative CXR clear UA no signs of UTI Blood Culture: negative RPR, Lyme Titers: negative B12 and folate : normal - Neurologist Dr. Gastelum consulted: likely late cognitive effects of radiation, subclinical seizure not likely, may consider Aricept as outpatient, ff up with Dr Gastelum in 1-[address] Lock consulted: recommend to continue usual PO steroids, ff up with Dr. Lock in 1-2 weeks, also with Neuro-Oncology - mental status back to baseline for discharge to [facility] AMBULATORY DYSFUNCTION - possibly secondary to Dehydration, Deconditioning, Steroid Myopathy? - continue PT/OT in [facility] HYPERNATREMIA -149, likely secondary to poor po intake -given 1/2 NS - Na improved to 143 - repeat Na level in 2-3 days please monitor fluid intake LEFT PERONEAL DVT, RIGHT PULMOMARY EMBOLI -CT Angio: Linear filling defects seen within the distal right main pulmonary artery and extending into the right lower lobar and subsegmental pulmonary arteries consistent with a pulmonary embolus. This is age indeterminate but favors a chronic embolus. 2. Peripheral consolidation at the base of the right lower lobe may be due to dependent change or pulmonary infarct. 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 Bowling (+) hematoma noted on the right groin region ff up with Dr. Bowling in 1 week RIGHT GROIN HEMATOMA (+) hematoma noted on the right groin region, STOP lovenox and Aspirin evaluated by Vascular Surgery GIANFRANCO Young, recommend monitoring for now Hg 12.9 monitor Right groin hematoma daily MALIGNANT GLIOMA OF BRAIN -S/p resection, chemo, radiation - Brain MRI: no signs of tumor recurrence -continue outpatient Decadron dose - follow up with Oncologist Dr. Lock in 1-2 weeks HISTORY OF SEIZURES - EEG noted -continue Keppra Keppra level : normal CAD - No complaints of chest pain - EKG nonischemic - Cardiac Markers negative - HOLD Aspirin until right groin hematoma improves DEPRESSION - per , showing some signs of worsening depression - Psych consulted- Dr. Polanco increased Citalopram to 40mg daily monitor EKG for QTc as outpatient HLD -continue Statin HTN - added amlodipine for elevated BP BP improved - continue lisinopril and Amlodipine - monitor BP DVT PROPHYLAXIS: Sq Lovenox BID given, discontinued CODE STATUS: LEVEL 5 DNR DISPO d/c to [facility] ff up with Primary Care Physician Dr. Gay on 11/22/16 at 1:30pm. ff up with Vascular Surgeon Dr Bowling in 1 week. ff up with Neurologist Dr. Perrin in 1-2 weeks ff up with Oncologist Dr. Lock in 1-2 weeks Total time spent on discharge = 60 minutes This includes examination of the patient, discharge planning, medication reconciliation, and communication with other providers. Discharge Instructions Discharge Instructions Admission Reason for Admission: Altered Mental Status, Ambulatory Dysfunction Discharge Discharge Diagnosis / Problem: ALTERED MENTAL STATUS, FREQUENT FALLS Discharge Goals Goal(s): Diagnostic testing, Therapeutic intervention Activity Recommendations Activity Level: Assistance Required Therapies: Physical Therapy, Occupational Therapy FALL PRECAUTIONS PLEASE . Additional Information Patient informed of condition: Yes Advance Directives: No (UNKNOWN) DNR: Yes Level of Care: Skilled Communicable Disease: No Prognosis: Stable Instructions / Follow-Up Instructions / Follow-Up PLEASE REPEAT SODIUM AND HG LEVEL IN 2-3 DAYS (RE: HYPERNATREMIA, HEMATOMA). ENSURE DAILY ADEQUATE FLUID INTAKE. MONITOR RIGHT GROIN, ABDOMINAL SKIN FOLD, TESTICULAR, SMALL AREAS OF HEMATOMA. NO ASPIRIN AND OTHER BLOOD THINNERS UNTIL HEMATOMA RESOLVES. FOLLOW UP WITH DR. GAY (PCP) ON Saturday11/22/16 AT 1:30 PM. FOLLOW UP WITH NEUROLOGIST DR. PERRIN, ONCOLOGIST DR. LOCK, VASCULAR SURGEON DR. BOWLING IN 1-2 WEEKS. PLEASE REFER TO ACCOMPANYING DISCHARGE SUMMARY FOR FURTHER DETAILS. Current Hospital Diet Patient's current hospital diet: AHA Diet (Heart Healthy) Discharge Diet Recommended Diet: AHA Diet (Heart Healthy) Procedures Procedures Performed: 11/16/16 Insertion of IVC filter, femoral approach by Dr. Bowling Pending Studies Studies pending at discharge: yes List of pending studies: repeat Sodium level in 2-3 days Physician Orders On Transfer Special Precautions: PLEASE REPEAT SODIUM LEVEL IN 2-3 DAYS (RE: HYPERNATREMIA). ENSURE DAILY ADEQUATE FLUID INTAKE. MONITOR RIGHT GROIN, ABDOMINAL SKIN FOLD, TESTICULAR, SMALL AREAS OF HEMATOMA. NO ASPIRIN AND OTHER BLOOD THINNERS UNTIL HEMATOMA RESOLVES. FOLLOW UP WITH DR. GAY (PCP) ON Saturday11/22/16 AT 1:30 PM. FOLLOW UP WITH NEUROLOGIST DR. PERRIN, ONCOLOGIST DR. LOCK, VASCULAR SURGEON DR. BOWLING IN 1-2 WEEKS. PLEASE REFER TO ACCOMPANYING DISCHARGE SUMMARY FOR FURTHER DETAILS. Vital Signs: BP daily Laboratory Results Lipid Panel Test 11/13/16 03:22 Range/Units Triglycerides Level 53 0-150 mg/dl Cholesterol Level 123 0-200 mg/dl HDL Cholesterol 65 mg/dl Cholesterol/HDL Ratio 1.9 LDL Cholesterol, Calculated 47 mg/dl Medical Emergencies . Who to Call and When: Medical Emergencies: If at any time you feel your situation is an emergency, please call 911 immediately. . Non-Emergent Contact Non-Emergency issues call your: Primary Care Provider Call Non-Emergent contact if: you have a fever, wound has increased drainage, wound has increased redness, wound has increased pain, you have any medication questions . Past History Medical & Surgical History: (1) Peroneal DVT (deep venous thrombosis) (2) Pulmonary embolus, right (3) HTN (hypertension) (4) Brain tumor (5) CAD (coronary artery disease) (6) Seizure (7) Hyperlipidemia (8) Oligodendroglioma of brain (9) Weakness (10) Dehydration (11) Altered mental status (12) Hypernatremia (13) Ambulatory dysfunction (14) COPD (chronic obstructive pulmonary disease) (15) HLD (hyperlipidemia) (16) Depression (17) H/O hernia repair (18) History of tonsillectomy (19) H/O brain surgery . "Provider Documentation" section prepared by Jonathan Valverde. Core Measure Problem Core Measures: VTE VTE Core Measures Date of VTE Diagnosis: Nov 12, 2016 Time of VTE Diagnosis: 18:32 Reason no anticoag overlap I/P: Contraindicated Reason no anticoag overlap @DC: Contraindicated
[2016-11-20 14:44] LABS: HEMATOCRIT 36.6 % (42-52)
[2016-11-20 14:57] VITALS: BP 133/78; PULSE 77; TEMP 36.4; O2SAT 93
[2016-11-20 15:03] VITALS: BP 133/78; PULSE 77; TEMP 36.4; O2SAT 93
== END 2016-11-20 15:50 | DRG 628 ==
LOC: ENRESERVTM → ENRESERVDT → EDBD 14:35 → C.EDA 14:37 → C.MED 18:56
PROVIDERS: ADMIT Hospitalist; ATTEND Internal Medicine
PROC: 06H03DZ Insertion of Intraluminal Device into Inferior Vena Cava, Percutaneous Approach (ICD-10-PCS; principal; 2016-11-16 13:30)
DX: E87.0 Hyperosmolality and hypernatremia (principal); G93.41 Metabolic encephalopathy; I82.492 Acute embolism and thrombosis of other specified deep vein of left lower extremity; I26.99 Other pulmonary embolism without acute cor pulmonale; I25.10 Atherosclerotic heart disease of native coronary artery without angina pectoris; J44.9 Chronic obstructive pulmonary disease, unspecified; I10 Essential (primary) hypertension; F32.9 Major depressive disorder, single episode, unspecified; Z85.841 Personal history of malignant neoplasm of brain; E86.0 Dehydration; G40.909 Epilepsy, unspecified, not intractable, without status epilepticus; Z92.3 Personal history of irradiation